=== PATIENT | male | born 1960 | race Caucasian/White ===

== ENCOUNTER 2017-11-17 07:00 | Emergency (ER) | payer OTHER ==
[~2017-11-17] VITALS: Ht 180.3 cm; Wt 83.2 kg
[2017-11-17 07:04] VITALS: TEMP 36.8; Ht 180.3 cm; Wt 83.2 kg
[2017-11-17] MEDS ORDERED: SODIUM CHLORIDE 0.9% 1000ML 1,000 ML IV STA (07:26)
[2017-11-17] MEDS ORDERED: ONDANSETRON INJ 8 MG in DEXTROSE 5% 50ML 50 ML IV SCH (07:26)
[2017-11-17] MEDS ORDERED: ONDANSETRON 8 MG/54 ML D5W IV STA (07:26)
[2017-11-17] MEDS ORDERED: OPTIRAY 320 IV PRN (07:30)
[2017-11-17] MEDS ORDERED: FOLI1TAB8 PO (07:36)
[2017-11-17] MEDS ORDERED: ALFU1TAB37 PO (07:36)
[2017-11-17] MEDS ORDERED: IRBE1TAB46 PO (07:36)
[2017-11-17] MEDS ORDERED: DEXL60CA4 PO (07:36)
[2017-11-17] MEDS ORDERED: HYDR12.55 PO (07:36)
[2017-11-17] MEDS ORDERED: LOVA10TA3 PO (07:36)
[2017-11-17] MEDS ORDERED: ASPI81TA28 PO (07:36)
[2017-11-17 07:53] LABS: BASO % 0.2 %; BASO ABS # 0.02 K/uL (0-0.2); EOS % 0.8 %; EOS ABS # 0.07 K/uL (0-0.5); HEMOGLOBIN 15.1 g/dL (14.0-18.0); IG# 0.01 K/uL (0.00-0.02); LYMPH % 11.5 %; LYMPH ABS # 0.97 K/uL (1.2-3.4); MEAN CELL VOLUME 91.5 fL (80-100); MEAN CORPUSCULAR HEMOGLOBIN 32.1 pg (25-34); MEAN CORPUSCULAR HGB CONC 35.1 g/dl (32-36); MEAN PLATELET VOLUME 11.9 fL (7.4-10.4); MONO % 7.5 %; MONO ABS # 0.63 K/uL (0.11-0.59); NEUT % 79.9 %; NEUT ABS # 6.75 K/uL (1.4-6.5); PLATELET COUNT 137 K/uL (130-400); RED CELL DISTRIBUTION WIDTH CV 13.4 % (11.5-14.5); RED CELL DISTRIBUTION WIDTH SD 45.3 fL (36.4-46.3); WHITE BLOOD COUNT 8.45 K/uL (4.8-10.8)
[2017-11-17 08:10] LABS: ALBUMIN 3.8 gm/dl (3.4-5.0); CALCIUM 8.6 mg/dl (8.5-10.1); CREATININE 0.98 mg/dl (0.60-1.40); POTASSIUM 4.2 mmol/L (3.5-5.1)
[2017-11-17 08:13] LABS: TOTAL PROTEIN 7.2 gm/dl (6.4-8.2)
--- NOTE | 2017-11-17 09:51 | DIAGNOSTIC IMAGING REPORT ---
ABD/PELVIS IV AND ORAL CONT CLINICAL HISTORY: 57 years-old Male presenting with LEFT-SIDED ABDOMINAL PAIN, left lower quadrant abdominal pain, lower rib pain, history of prior left-sided hernia repair. TECHNIQUE: Multidetector CT of the abdomen and pelvis was performed after the administration of oral and intravenous contrast. IV contrast: 94 mL of Optiray 320. A dose lowering technique was used consistent with the principles of ALARA (as low as reasonably achievable). COMPARISON: 12/24/2015. CT DOSE (mGy.cm): The estimated cumulative dose is 338.45 mGy.cm. 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 Lung bases: Minimal basilar opacities, likely atelectasis. Normal heart size. Mitral annular calcification. No pericardial or pleural effusion. Liver: Normal morphology. No liver lesion. Patent hepatic vasculature. Biliary: No intrahepatic or extrahepatic biliary ductal dilatation. Normal gallbladder. Pancreas: Normal. Spleen: Normal. Adrenal glands: Normal. Kidneys and ureters: Multiple well-defined hypodensities in the kidneys primarily on the left, likely simple cysts. No nephrolithiasis. No hydronephrosis. No perinephric fat infiltration. Ureters normal. Bladder: Normal. Pelvic organs: Prostate and seminal vesicles normal. Bowel: Diverticulosis of the sigmoid and descending colon. Wall thickening of the proximal descending colon with associated fascial thickening and fluid in the left paracolic gutter. No adjacent well-defined fluid collection or extraluminal gas. Moderate stool burden in the right colon. The appendix is normal. No bowel obstruction. Peritoneal cavity: Small amount of free fluid in the pelvis and left paracolic gutter. No evidence of abscess. No free intraluminal gas. No contained extraluminal gas along the descending colon. Lymph nodes: No enlarged lymph nodes in the abdomen or pelvis. Vasculature: Atherosclerosis of the normal caliber abdominal aorta. IVC patent. Abdominal wall: Normal. Musculoskeletal: Normal. IMPRESSION: 1. Findings consistent with acute uncomplicated diverticulitis of the proximal descending colon. No abscess, extraluminal gas, or free air. 2. Diverticulosis of the sigmoid and descending colon. Electronically signed by: Anatoliy Torres M.D. 11/17/2017 9:49 AM Dictated Date/Time: 11/17/2017 9:43 AM
[2017-11-17] MEDS ORDERED: METR-163 PO (10:10)
[2017-11-17] MEDS ORDERED: ONDA8TAB13 SL (10:10)
[2017-11-17] MEDS ORDERED: CIPR-255 PO (10:10)
--- NOTE | 2017-11-17 10:18 | EMERGENCY ROOM VISIT NOTE ---
History First contact with patient: 07:08 Chief Complaint: ABDOMINAL PAIN Stated Complaint: EXTREME PAIN/DISCOMFORT LEFT SIDE/BOTTOM OF RIB CA History of Present Illness The patient is a 57 year old male who presents to the Emergency Room with complaints of left-sided abdominal pain that the patient describes as a constant sensation. The patient reports that his bowels are returning, and feels like he has to have a bowel movement but cannot. He has had no flatulence or belching. The pain is worsened with any type of movement at this point. The patient reports that his stool lately has been "fluffy". He denies any mucus or blood in his stool. He denies any pain radiating into the right side of the abdomen, back or chest. He denies any difficulty urinating, and denies any prior history of kidney stones. The patient's last colonoscopy was in approximately 2013. He does not recall being told that he had diverticulosis or other abnormalities. This was performed by Dr. Rayo at [facility]. The patient also reports a prior history of left inguinal mesh repair in 2008. The patient had an abdominal laparoscopy approximate 4 years ago because of left lower abdominal pain, and was told that he had some inflammation secondary to the mesh repair. Patient does not recall being told that he had any adhesions. The patient reports that he is experiencing nausea this morning, and rates his discomfort a 6 out of 10. Review of Systems HEENT: Denies dizziness, visual problems, hearing loss, tinnitus. Denies difficulty swallowing or oral lesions. PULMONARY: Denies cough, shortness of breath, sputum production or hemoptysis. CARDIOVASCULAR: Denies chest pain, palpitations, dyspnea on exertion, orthopnea or peripheral edema. GASTROINTESTINAL: Denies diarrhea or constipation, otherwise see HPI. GENITOURINARY: Denies dysuria, frequency, urgency or nocturia. NEUROLOGIC: Denies history of epilepsy, CVA, TIA or chronic headaches. MUSCULOSKELETAL: Denies history of joint tenderness/swelling. SKIN: Denies rashes or lesions. PSYCHIATRIC: Denies history of depression or mental illness. ENDOCRINE: Denies history of diabetes or thyroid disorders. Social History Smoking Status: Never Smoker Current/Historical Medications Scheduled Alfuzosin HCl (Uroxatral), 10 MG PO QAM Aspirin (Aspirin Ec), 81 MG PO DAILY Ciprofloxacin Hcl (Cipro), 500 MG PO BID Dexlansoprazole (Dexilant), 60 MG PO QAM Folic Acid (Folvite), 1 MG PO DAILY Hydrochlorothiazide (Hydrochlorothiazide), 12.5 MG PO QAM Irbesartan (Irbesartan), 75 MG PO QAM Lovastatin (Mevacor), 10 MG PO QPM Metronidazole (Flagyl), 500 MG PO TID Scheduled PRN Ondansetron Odt (Zofran Odt), 8 MG SL Q6H PRN for Nausea Physical Exam Vital Signs Date Time Temp Pulse Resp B/P (MAP) Pulse Ox O2 Delivery O2 Flow Rate FiO2 11/17/17 09:09 71 18 138/85 96 Room Air 11/17/17 07:04 36.8 95 20 164/99 97 Room Air Physical Exam CONSTITUTIONAL: Healthy and well nourished. Alert and oriented X 3 with positive affect. Patient appears in mild to moderate discomfort. HEENT: Normocephalic, atraumatic. Pupils equal, round and reactive. No scleral icterus or conjunctival injection. OROPHARYNX: Mucous membranes are moist. NECK: Full active range of motion without discomfort. RESPIRATORY: Clear to auscultation bilaterally with no wheezing, crackles, rhonchi or stridor. CARDIOVASCULAR: Regular rate and rhythm with no murmurs, rubs or gallops. GASTROINTESTINAL: Bowel sounds present in all quadrants. Patient has notable left-sided abdominal tenderness to palpation with guarding. No rebound or rigidity. Negative McBurney's point tenderness. Negative He sign. Negative CVA tenderness. MUSCULOSKELETAL: Full range of motion of all joints without discomfort. INTEGUMENTARY: No rash or other significant dermatologic conditions noted. HEMATOLOGIC: No ecchymosis or petechiae. NEUROLOGIC: No focal neurologic deficits noted. Medical Decision & Procedures ER Provider Diagnostic Interpretation: Enhanced CT of the abdomen and pelvis shows an uncomplicated diverticulitis of the descending colon and sigmoid. Radiologist report is as follows: ABD/PELVIS IV AND ORAL CONT CLINICAL HISTORY: 57 years-old Male presenting with LEFT-SIDED ABDOMINAL PAIN, left lower quadrant abdominal pain, lower rib pain, history of prior left-sided hernia repair. TECHNIQUE: Multidetector CT of the abdomen and pelvis was performed after the administration of oral and intravenous contrast. IV contrast: 94 mL of Optiray 320. A dose lowering technique was used consistent with the principles of ALARA (as low as reasonably achievable). COMPARISON: 12/24/2015. CT DOSE (mGy.cm): The estimated cumulative dose is 338.45 mGy.cm. 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 Lung bases: Minimal basilar opacities, likely atelectasis. Normal heart size. Mitral annular calcification. No pericardial or pleural effusion. Liver: Normal morphology. No liver lesion. Patent hepatic vasculature. Biliary: No intrahepatic or extrahepatic biliary ductal dilatation. Normal gallbladder. Pancreas: Normal. Spleen: Normal. Adrenal glands: Normal. Kidneys and ureters: Multiple well-defined hypodensities in the kidneys primarily on the left, likely simple cysts. No nephrolithiasis. No hydronephrosis. No perinephric fat infiltration. Ureters normal. Bladder: Normal. Pelvic organs: Prostate and seminal vesicles normal. Bowel: Diverticulosis of the sigmoid and descending colon. Wall thickening of the proximal descending colon with associated fascial thickening and fluid in the left paracolic gutter. No adjacent well-defined fluid collection or extraluminal gas. Moderate stool burden in the right colon. The appendix is normal. No bowel obstruction. Peritoneal cavity: Small amount of free fluid in the pelvis and left paracolic gutter. No evidence of abscess. No free intraluminal gas. No contained extraluminal gas along the descending colon. Lymph nodes: No enlarged lymph nodes in the abdomen or pelvis. Vasculature: Atherosclerosis of the normal caliber abdominal aorta. IVC patent. Abdominal wall: Normal. Musculoskeletal: Normal. IMPRESSION: 1. Findings consistent with acute uncomplicated diverticulitis of the proximal descending colon. No abscess, extraluminal gas, or free air. 2. Diverticulosis of the sigmoid and descending colon. Laboratory Results 11/17/17 07:45 Red Blood Count 4.70, Mean Corpuscular Volume 91.5, Mean Corpuscular Hemoglobin 32.1, Mean Corpuscular Hemoglobin Concent 35.1, Mean Platelet Volume 11.9, Neutrophils (%) (Auto) 79.9, Lymphocytes (%) (Auto) 11.5, Monocytes (%) (Auto) 7.5, Eosinophils (%) (Auto) 0.8, Basophils (%) (Auto) 0.2, Neutrophils # (Auto) 6.75, Lymphocytes # (Auto) 0.97, Monocytes # (Auto) 0.63, Eosinophils # (Auto) 0.07, Basophils # (Auto) 0.02 11/17/17 07:45 Test 11/17/17 07:45 11/17/17 07:50 White Blood Count 8.45 K/uL (4.8-10.8) Red Blood Count 4.70 M/uL (4.7-6.1) Hemoglobin 15.1 g/dL (14.0-18.0) Hematocrit 43.0 % (42-52) Mean Corpuscular Volume 91.5 fL (80-100) Mean Corpuscular Hemoglobin 32.1 pg (25-34) Mean Corpuscular Hemoglobin Concent 35.1 g/dl (32-36) Platelet Count 137 K/uL (130-400) Mean Platelet Volume 11.9 fL (7.4-10.4) Neutrophils (%) (Auto) 79.9 % Lymphocytes (%) (Auto) 11.5 % Monocytes (%) (Auto) 7.5 % Eosinophils (%) (Auto) 0.8 % Basophils (%) (Auto) 0.2 % Neutrophils # (Auto) 6.75 K/uL (1.4-6.5) Lymphocytes # (Auto) 0.97 K/uL (1.2-3.4) Monocytes # (Auto) 0.63 K/uL (0.11-0.59) Eosinophils # (Auto) 0.07 K/uL (0-0.5) Basophils # (Auto) 0.02 K/uL (0-0.2) RDW Standard Deviation 45.3 fL (36.4-46.3) RDW Coefficient of Variation 13.4 % (11.5-14.5) Immature Granulocyte % (Auto) 0.1 % Immature Granulocyte # (Auto) 0.01 K/uL (0.00-0.02) Anion Gap 5.0 mmol/L (3-11) Est Creatinine Clear Calc Drug Dose 87.5 ml/min Estimated GFR () 98.1 Estimated GFR (Non- 84.6 BUN/Creatinine Ratio 18.1 (10-20) Calcium Level 8.6 mg/dl (8.5-10.1) Total Bilirubin 0.5 mg/dl (0.2-1) Direct Bilirubin 0.2 mg/dl (0-0.2) Aspartate Amino Transf (AST/SGOT) 15 U/L (15-37) Alanine Aminotransferase (ALT/SGPT) 26 U/L (12-78) Alkaline Phosphatase 79 U/L (45-117) Total Protein 7.2 gm/dl (6.4-8.2) Albumin 3.8 gm/dl (3.4-5.0) Lipase 204 U/L (73-393) Urine Color DK YELLOW Urine Appearance CLEAR (CLEAR) Urine pH 5.5 (4.5-7.5) Urine Specific [place] 1.022 (1.000-1.030) Urine Protein NEG (NEG) Urine Glucose (UA) NEG (NEG) Urine Ketones NEG (NEG) Urine Occult Blood NEG (NEG) Urine Nitrite NEG (NEG) Urine Bilirubin NEG (NEG) Urine Urobilinogen NEG (NEG) Urine Leukocyte Esterase NEG (NEG) The above labs were reviewed. Patient does not have an elevated white count. Urinalysis is normal. LFTs, lipase and remaining electrolytes are also normal. Medications Administered Medications (Trade) Dose Ordered Sig/Nydia Route Start Time Stop Time Status Last Admin Dose Admin Sodium Chloride 1,000 ml @ 0 mls/hr Q0M STAT IV 11/17/17 07:26 11/17/17 07:28 DC 11/17/17 08:09 1,000 MLS/HR Ondansetron HCl 8 mg/Dextrose 54 ml @ 216 mls/hr 0726 IV 11/17/17 07:26 11/17/17 09:00 DC 11/17/17 08:08 216 MLS/HR ED Course Patient history and physical exam were performed. Nurse's notes were reviewed. Vital signs were reviewed, showing an initial blood pressure of 164/99. The patient is afebrile. IV access was established, and labs were drawn. The patient was initially hydrated with a liter normal saline, and administered Zofran IVP for nausea. He refused any initial analgesics. Review of labs does not show any leukocytosis or elevated liver transaminases or lipase. Electrolytes are normal. Urinalysis is also normal. Enhanced CT of the abdomen and pelvis shows an uncomplicated diverticulitis of the descending colon and sigmoid. The patient reports mild persistent pain, continuing to refuse any parenteral or oral analgesics. Findings were discussed with the patient and . The patient was encouraged to follow-up with his PCP or stationary steam engineer for reevaluation in 2-3 days. The patient will be provided prescriptions for Zofran ODT, Cipro and Flagyl. The patient may also alternate ibuprofen and Tylenol for baseline pain relief. He was instructed to return to the emergency department for any progressively worsening pain or developing fever. Dietary instructions were also discussed. The patient was happy with plan of care, and voiced understanding of all discharge instructions. Medical Decision Patient presents with a several month history of left-sided abdominal pain. CT studies today plicated diverticulitis of the descending colon and sigmoid. There is no evidence for microperforation or abscess formation. The patient is currently afebrile and does not have any leukocytosis to suggest overwhelming infection. Laboratory studies also are not suggestive of UTI, pancreatitis, cholecystitis or hepatitis. I do not suspect cardiopulmonary or musculoskeletal etiology. Medication Reconcilliation Current Medication List: was personally reviewed by me Blood Pressure Screening Patient's blood pressure: Elevated blood pressure Blood pressure disposition: Did not require urgent referral Impression Primary Impression: Diverticulitis Departure Information Prescriptions Ondansetron Odt (ZOFRAN ODT) 8 Mg Tab 8 MG SL Q6H Y for Nausea, #10 TAB Prov: Zak Valadez PA 11/17/17 Metronidazole (Flagyl) 500 Mg Tab 500 MG PO TID for Pain for 10 Days, #30 TAB For Initial Treatment Prov: Zak Valadez PA 11/17/17 Ciprofloxacin Hcl (CIPRO) 500 Mg Tab 500 MG PO BID for 10 Days, #20 TAB Prov: Zak Valadez PA 11/17/17 Referrals No Doctor, Assigned (PCP) Patient Instructions [facility]
[2017-11-17 10:46] VITALS: BP 128/81; PULSE 70; O2SAT 96
== END 2017-11-17 10:48 | disposition home or self-care (01) ==
LOC: C.EDB 07:01
DX: K57.92 Diverticulitis of intestine, part unspecified, without perforation or abscess without bleeding (principal); Z79.899 Other long term (current) drug therapy; Z79.82 Long term (current) use of aspirin

== ENCOUNTER 2019-07-24 05:46 | Observation (INO) ==
--- NOTE | 2019-07-02 10:44 | PAT Medication Instructions ---
Medication Instructions Date of Service July 02, 2019 Home Medications alfuzosin 10 mg tablet,extended release 24 hr 10 mg PO QAM folic acid 1 mg tablet 1 mg PO QAM hydrochlorothiazide 25 mg PO QAM irbesartan 75 mg PO QPM omeprazole 20 mg PO BIDM lovastatin 10 mg tablet 10 mg PO Q OTHER DAY [id number]-fht-hyalur [Joint Health] 1 tab PO TID lactobacillus combination no.4 [Probiotic] 3,000 mmu cells PO QAM [Centrum Silver Men] 1 tab PO QAM Continue as directed lovastatin 10 mg tablet 10 mg PO Q OTHER DAY STOP taking 2 weeks before surgery (or as soon as possible if surgery is within 2 weeks) rufycduvn-vwvffvdl-rho-hyalur [Joint Health] 1 tab PO TID DO NOT take the morning of surgery folic acid 1 mg tablet 1 mg PO QAM hydrochlorothiazide 25 mg PO QAM lactobacillus combination no.4 [Probiotic] 3,000 mmu cells PO QAM Centrum Silver Men 1 tab PO QAM Take morning of surgery With a small sip of water, OTHERWISE NOTHING TO EAT OR DRINK AFTER MIDNIGHT: alfuzosin 10 mg tablet,extended release 24 hr 10 mg PO QAM omeprazole 20 mg PO BIDM Take evening before surgery irbesartan 75 mg PO QPM omeprazole 20 mg PO BIDM Other Notes If you have any questions please call us at [phone] or [phone] or [phone] or [phone]
--- NOTE | 2019-07-03 08:58 | Anesthesiology Consultation ---
Date of Service July 03, 2019 Assessment & Plan (1) Encounter for pre-operative examination: PCP CLEARANCE 06/27 = "Patient cleared for surgery." Chart Review Chart Review: Acceptable Risk for Surgery (PENDING PRE-OP TESTING -- EKG, LABS, CXR) and Patient seen in Pre Admission Testing Teaching & Discussion Instructed NPO after midnight before surgery, except medications with 15 cc of water. Medication instructions provided according to the PAT guidelines. History Surgery Operation Date: 07/24/19 07:30 Proposed Procedures p Robotic Assisted Laparoscopic Radical Retropubic Prostatectomy, Possible Open, Possible Pelvic Lymph Node Disection, Possible Suprapubic Tube Placement - Nima Carrera MD Height/Weight Height: 5 ft 11 in Weight: 83.1 kg Allergies Allergy/AdvReac Type Severity Reaction Status Date / Time No Known Allergies Allergy Verified 06/27/19 15:07 Medications Home Medications Medication Instructions Recorded Confirmed Last Taken alfuzosin 10 mg tablet,extended 10 mg PO QAM 04/30/19 06/27/19 04/30/19 release 24 hr folic acid 1 mg tablet 1 mg PO QAM 04/30/19 06/27/19 04/30/19 hydrochlorothiazide 25 mg PO QAM 04/30/19 06/27/19 04/30/19 irbesartan 75 mg PO QPM 04/30/19 06/27/19 04/30/19 omeprazole 20 mg PO BIDM 04/30/19 06/27/19 04/30/19 lovastatin 10 mg tablet 10 mg PO Q OTHER DAY tab 06/24/19 06/27/19 Unknown tdiwhpkks-vwnglaxl-utd-hyalur 1 tab PO TID 06/27/19 06/27/19 Unknown [Joint Health] lactobacillus combination no.4 3,000 mmu cells PO QAM 06/27/19 06/27/19 Unknown [Probiotic] overyire-tkb-IV-lycopen-lutein 1 tab PO QAM 06/27/19 06/27/19 Unknown [Centrum Silver Men] Past Medical History Medical History (Updated 07/03/19 @ 09:02 by Doug Moreno) Essential (primary) hypertension History of diverticulosis Hx of transient ischemic attack (TIA) 2013 - INITIALLY SEE AT [facility], SENT TO [place] ([place]). HAD FACIAL DROOP WHICH RESOLVED IN 2 HOURS. CURRENTLY NO RSDUAL EFFECTS. WAS EVALUATED BY NEUROLOGY [facility], [place], TOLD TO TAKE FOLIC ACID DAILY, NO NEED TO F/U. Hyperlipidemia Prostate cancer (Acute) Rising PSA, pretreatment PSA 3.72 Status post ultrasound-guided biopsies April 17, 2018 Adenocarcinoma the prostate Reema 3+3, 1 of 14 cores positive Prostate volume 25 Prostate density 0.148 Exercise / Class Metabolic Activity II 4-5 Yardwork/Stairs/Walk up hill (DENIES CP OR SOB WITH 1 FOS) Past Family History Family History (Updated 06/27/19 @ 15:20 by Awilda Merritt, RN) Father , age 52 No problems noted. Sister , age 51 of colon cancer Family hx of colon cancer Brother No problems noted. Son Age: 39 No problems noted. Son Age: 36 No problems noted. Daughter Age: 42 No problems noted. Grandmother (Paternal) Family history of diabetes mellitus Sister No problems noted. Past Surgical History Surgical History History of foot surgery RIGHT BIG TOE JOINT FUSION Hx of colonoscopy Hx of hernia repair Past Anesthesia History No Hx of Anesthesia Complications and No Family Hx of Anesthesia Complications History of PONV No Hx of PONV and No Hx of Motion Sickness Social History Smoking Status: Former smoker Do You Dip or Chew Tobacco: No Smoking End Date: 03/1992 Hx Alcohol Use: Yes Alcohol type: beer and hard liquor alcohol intake frequency: a few times a week Hx Substance Use: No Review of Systems Pt denies any recent chest pain, shortness of breath, palpitations, cough, fever or URI. Physical Exam Vital Signs BP: 146/90 (pt states usually 130's/80's, drank coffee this AM) P: 64 bpm SPO2: 98% RA T: 98.0 F R: 12 ENMT Mouth: no dentures, no dental restorations, no chipped teeth and no loose teeth Thyromental Distance: > or= 3.5 Finger Breadths (3.5) Mallampati Class: II Neck normal visual inspection and + facial hair (short trimmed goatee); neck ex tension not limited (some pain at limits of ROM) Respiratory normal respiratory effort Auscultation: lungs clear to auscultation bilaterally Cardiovascular Rate/Rhythm: regular rate and regular rhythm Heart Sounds: no murmur Vessels: no carotid bruit Extremities: no edema
--- NOTE | 2019-07-03 09:31 | XRay Report ---
XR chest Pre-admission PA/Lat HISTORY: 59 years-old Male pat preoperative exam. No acute chest complaints COMPARISON: CT abdomen and pelvis 04/30/2019 TECHNIQUE: PA and lateral views of the chest FINDINGS: Cardiomediastinal and hilar silhouettes are within normal limits. No pneumothorax, pleural effusion, focal airspace consolidation or overt pulmonary edema. Lungs are mildly hyperinflated with blunting o f the posterior costophrenic angles. Bones of the chest appear grossly intact. Degenerative changes a re noted about the shoulders and spine. IMPRESSION: No acute process. ACT 112: Negative or not required by law. The above report was generated using voice recognition software. It may contain grammatical, syntax o r spelling errors. Electronically signed by: Mu Sunshine M.D. 07/03/2019 9:30 AM
[2019-07-03 10:08] LABS: Basophils # (auto) 0.01 K/uL (0-0.2); Basophils % (auto) 0.2 %; Eosinophils # (auto) 0.05 K/uL (0-0.5); Eosinophils % (auto) 0.9 %; Hematocrit (blood only) 42.7 % (42-52); Hemoglobin 14.1 g/dL (14.0-18.0); Immature Granulocytes # (auto) 0.01 K/uL (0.00-0.02); Immature Granulocytes % (auto) 0.2 %; Lymphocytes # (auto) 1.42 K/uL (1.2-3.4); Lymphocytes % (auto) 24.2 %; Mean Corpuscular Hemoglobin 30.9 pg (25-34); Mean Corpuscular Volume 93.4 fL (80-100); Mean Platelet Volume 11.7 fL (7.4-10.4); Monocytes # (auto) 0.42 K/uL (0.11-0.59); Monocytes % (auto) 7.2 %; Neutrophils # (auto) 3.96 K/uL (1.4-6.5); Neutrophils % (auto) 67.3 %; Platelet Count 179 K/uL (130-400); RDW Coefficient of Variation 13.9 % (11.5-14.5); RDW Standard Deviation 47.4 fL (36.4-46.3); Red Blood Count 4.57 M/uL (4.7-6.1); White Blood Count 5.87 K/uL (4.8-10.8)
[2019-07-03 10:16] LABS: Appearance Urine Clear (Clear); Bilirubin Urine Negative (Negative); Blood Urine Negative (Negative); Color Urine Yellow; Glucose Urine UA Negative (Negative); Ketones Urine Negative (Negative); Leukocyte Esterase Urine Negative (Negative); Nitrite Urine Negative (Negative); Protein Urine Negative (Negative); Specific Gravity Urine 1.008 (1.000-1.030); Urobilinogen Urine Negative (Negative); pH Urine 7.5 (4.5-7.5)
[2019-07-03 10:21] LABS: BUN Creatinine Ratio 18.1 (10-20); Est GFR (African American) 92.2; Est GFR (Non-African American) 79.5; Potassium 4.4 mmol/L (3.5-5.1)
[2019-07-24] MEDS ORDERED: LR 500ML BOLUS, THEN 15ML/HR IV SCH (06:00)
[2019-07-24] MEDS ORDERED: LR 15ML/HR IV SCH ×2 (06:00)
[2019-07-24] MEDS ORDERED: HEPARIN SOD 5,000 UNIT/0.5 ML VIAL SQ SCH (06:00)
[2019-07-24] MEDS ORDERED: CEFAZOLIN 2000MG 2,000 MG/15 ML SYR IV SCH (06:00)
[2019-07-24] MEDS ORDERED: ACETAMINOPHEN 1,000 MG/100 ML VIAL IV SCH (06:00)
--- NOTE | 2019-07-24 07:04 | History & Physical Bridge Note ---
Date of Service July 24, 2019 History & Physical Bridge Note I have examined the patient, reviewed the History & Physical and in the interval since the performance of the History & Physical I have noted the following changes of clinical significance: no changes noted
[2019-07-24] MEDS ORDERED: LIDOCAINE HCL 2% 2 ML VIAL/AMP(20MG/ML) INFIL ONE (07:07)
[2019-07-24] MEDS ORDERED: DEXAMETHASONE SOD INJ 4 MG/ML VIAL ONE (07:07)
[2019-07-24] MEDS ORDERED: PROPOFOL IV EMULSION 10 MG/ML 20 ML VIAL IV ONE (07:07)
[2019-07-24] MEDS ORDERED: ONDANSETRON INJ 2 MG/ML 2 ML VIAL ONE (07:07)
[2019-07-24] MEDS ORDERED: ROCURONIUM BROMIDE 10 MG/ML 5 ML VIAL ONE ×6 (07:07→08:28)
[2019-07-24] MEDS ORDERED: GLYCOPYRROLATE 0.2 MG/ML VIAL ONE (07:07)
[2019-07-24] MEDS ORDERED: NEOSTIGMINE METHYLSULFATE 5 MG/5 ML SYR ONE (07:07)
[2019-07-24] MEDS ORDERED: PHENYLEPHRINE HCL 10 MG/ML VIAL ONE (07:07)
[2019-07-24] MEDS ORDERED: MIDAZOLAM HCL 1 MG/ML 2ML VIAL ONE (07:07)
[2019-07-24] MEDS ORDERED: HYDROmorphone INJ 2 MG/ML SYR/VIAL ONE ×2 (07:08→09:07)
[2019-07-24] MEDS ORDERED: BUPIVACAINE 0.5 % 5 MG/1 ML MPF 30ML VIAL ONE (07:25)
[2019-07-24] MEDS ORDERED: ePHEDrine sulfate 50 MG/ML AMP IV PRN (07:47)
[2019-07-24] MEDS ORDERED: fentaNYL citrate 100 MCG/2 ML VIAL IV PRN (07:47)
[2019-07-24] MEDS ORDERED: HYDROmorphone INJ 2 MG/ML SYR/VIAL IV PRN (07:47)
[2019-07-24] MEDS ORDERED: ONDANSETRON INJ 2 MG/ML 2 ML VIAL IV PRN ×2 (07:47→12:45)
[2019-07-24] MEDS ORDERED: ATROPINE SULFATE 0.1 MG/ML 10ML SYR IV PRN (07:47)
[2019-07-24] MEDS ORDERED: PROMETHAZINE HCL 12.5 MG in SODIUM CHLORIDE 0.9% 50 ML IV PRN (07:47)
[2019-07-24] MEDS ORDERED: LABETALOL HCL IV 5 MG/ML 20ML IV ONE (08:39)
[2019-07-24] MEDS ORDERED: SURGICEL ABSORB HEMOSTAT 2IN X 14IN TOP ONE (08:57)
[2019-07-24] MEDS ORDERED: FLOSEAL HEMOSTATIC MATRIX 10ML TOP ONE (09:34)
--- NOTE | 2019-07-24 10:41 | Operative Report ---
PG Post Operative Report Pre & Post Diagnosis Operation Date: 07/24/19 07:30 Pre-Op Diagnosis: Prostate Cancer Post-Op Diagnosis: Prostate Cancer I identified the patient and participated in the time-out.: Yes Procedure Operation Date: 07/24/19 07:30 Actual Procedures p Robotic Assisted Laparoscopic Radical Retropubic Prostatectomy, Suprapubic Tube Placement - Nima Carrera MD Surgeon Nima Carrera MD Filling Separator BOY VILLEDA Estimated Blood Loss 100 Findings Consistent with Post-Op Diagnosis Specimens Periprostatic fat, R SV+ vas, prostate + SVs Description of Procedure See above I attest to the content of the Intraoperative Record and any orders documented therein. Any exceptions are noted below.
[2019-07-24 11:37] LABS: Basophils # (auto) 0.01 K/uL (0-0.2); Basophils % (auto) 0.1 %; Eosinophils # (auto) 0.02 K/uL (0-0.5); Eosinophils % (auto) 0.2 %; Hematocrit (blood only) 41.5 % (42-52); Immature Granulocytes # (auto) 0.01 K/uL (0.00-0.02); Immature Granulocytes % (auto) 0.1 %; Lymphocytes # (auto) 0.97 K/uL (1.2-3.4); Lymphocytes % (auto) 11.1 %; Mean Corpuscular Hemoglobin 31.4 pg (25-34); Mean Platelet Volume 11.9 fL (7.4-10.4); Monocytes # (auto) 0.11 K/uL (0.11-0.59); Monocytes % (auto) 1.3 %; Neutrophils # (auto) 7.62 K/uL (1.4-6.5); Neutrophils % (auto) 87.2 %; Platelet Count 148 K/uL (130-400); RDW Coefficient of Variation 13.9 % (11.5-14.5); RDW Standard Deviation 47.5 fL (36.4-46.3); Red Blood Count 4.46 M/uL (4.7-6.1); White Blood Count 8.74 K/uL (4.8-10.8)
[2019-07-24 11:39] LABS: Mean Corpuscular Hgb Conc 33.7 g/dL (32-36)
[2019-07-24 11:58] LABS: BUN Creatinine Ratio 16.9 (10-20); Calcium 8.5 mg/dl (8.5-10.1); Creatinine Clr Calc Pharmacy 75.4 ml/min; Est GFR (African American) 83.2; Est GFR (Non-African American) 71.8; Potassium 4.2 mmol/L (3.5-5.1)
--- NOTE | 2019-07-24 12:26 | Anesthesiology Progress Note ---
Date of Service July 24, 2019 Anesthesia Post Procedure Vital Signs Vital Signs: Temp Pulse Pulse Resp BP Pulse Ox 07/24/19 12:00 37.2 C 91 H 16 124/74 96 07/24/19 11:50 81 14 113/74 95 07/24/19 11:40 88 17 118/75 96 07/24/19 11:30 85 12 134/74 96 07/24/19 11:20 75 21 129/75 96 07/24/19 11:10 94 H 18 138/79 96 07/24/19 11:00 88 10 L 129/71 96 07/24/19 10:53 36.1 C L 96 H 18 135/79 97 07/24/19 06:14 36.6 C 76 18 137/95 98 Transfer of Care Handoff Completed per policy Notes Mental Status: alert / awake / arousable and participated in evaluation Patient Amnestic to Procedure: Yes Nausea / Vomiting: adequately controlled Pain: adequately controlled Airway Patency, RR, SpO2: stable & adequate BP & HR: stable & adequate Hydration State: stable & adequate Anesthetic Complications: no major complications apparent and Pt Satisfied with anesthetic care
[2019-07-24] MEDS ORDERED: OXYCODONE HCL IR 5 MG TAB (IMMEDIATE RELEASE) PO PRN (12:45)
[2019-07-24] MEDS ORDERED: HYDROmorphone INJ 1 MG/ML SYRINGE IV PRN (12:45)
[2019-07-24] MEDS ORDERED: HYDROmorphone INJ 0.5 MG/0.5 ML SYR IV PRN (12:45)
[2019-07-24] MEDS ORDERED: PROMETHAZINE HCL 12.5 MG in SODIUM CHLORIDE 0.9% 50 ML IV STA (13:01)
[2019-07-24] MEDS ORDERED: LACTATED RINGER'S 1,000 ML IV SCH (13:15)
[2019-07-24] MEDS: CEFAZOLIN 2000MG 2,000 MG/15 ML SYR IV SCH ×2 (17:02→23:47)
[2019-07-24] MEDS: OXYCODONE HCL IR 5 MG TAB (IMMEDIATE RELEASE) PO PRN ×2 (17:10→22:19)
[2019-07-24] MEDS: ACETAMINOPHEN 1,000 MG/100 ML VIAL IV SCH ×2 (17:10→23:47)
[2019-07-24] MEDS: PANTOprazole 40 MG TAB PO SCH (17:11)
--- NOTE | 2019-07-24 17:13 | Progress Note ---
Date of Service July 24, 2019 Subjective Patient resting in bed. Postop nausea noted, improved with meds. Family in room, no OOB yet, planned for later. Taking clears, conversant. Intraop events reviewed. NAD Good respiratory excursion bilaterally. S1 S2 Inc c/d/i, ND, minimal tenderness. Labs as noted. A/P 59 yo male POD#0 s/p RALRP, SPT. Doing as expected. OOBTC tonight, IS encouraged. Clears. Intraop events reviewed. Advance activity tomorrow. Laboratory Results - last 48 hr 07/24/19 07/24/19 11:14 11:14 WBC 8.74 RBC 4.46 L Hgb 14.0 Hct 41.5 L MCV 93.0 MCH 31.4 MCHC 33.7 RDW Std Deviation 47.5 H RDW Coeff of Nithya 13.9 Plt Count 148 MPV 11.9 H Immature Gran % (Auto) 0.1 Neut % (Auto) 87.2 Lymph % (Auto) 11.1 [place] % (Auto) 1.3 Eos % (Auto) 0.2 Baso % (Auto) 0.1 Immature Gran # (Auto) 0.01 Neut # (Auto) 7.62 H Lymph # (Auto) 0.97 L [place] # (Auto) 0.11 Eos # (Auto) 0.02 Baso # (Auto) 0.01 Sodium 139 Potassium 4.2 Chloride 109 H Carbon Dioxide 25 Anion Gap 5.0 BUN 19 H Creatinine 1.11 Est Cr Clr Drug Dosing 75.4 Est GFR ( Amer) 83.2 Est GFR (Non-Af Amer) 71.8 BUN/Creatinine Ratio 16.9 Glucose 129 H Calcium 8.5 Results & Data Vital Signs (Past 12 Hours) Vital Signs Temp Pulse Pulse Pulse Resp BP Pulse Ox 07/24/19 15:50 74 16 136/80 97 07/24/19 14:30 74 17 112/67 96 07/24/19 13:30 75 16 124/80 96 07/24/19 12:30 36.5 C 83 16 127/74 97 07/24/19 12:00 37.2 C 91 H 16 124/74 96 07/24/19 11:50 81 14 113/74 95 07/24/19 11:40 88 17 118/75 96 07/24/19 11:30 85 12 134/74 96 01/09/20 11:20 75 21 129/75 96 07/24/19 11:10 94 H 18 138/79 96 07/24/19 11:00 88 10 L 129/71 96 07/24/19 10:53 36.1 C L 96 H 18 135/79 97 07/24/19 06:14 36.6 C 76 18 137/95 98 PG Care Time/CCT Total # of Minutes Spent Total Time Spent with Patient: Total time spent is greater than 50% in coordination of care (as documented) at patient's floor/unit and/or counseling patient:
[2019-07-24] MEDS ORDERED: KETOROLAC TROMETHAMINE 15 MG/ML VIAL ONE (20:53)
[2019-07-24] MEDS ORDERED: LOVASTATIN 20 MG TAB PO SCH (21:00)
[2019-07-24] MEDS ORDERED: IRBESARTAN 75 MG TAB PO SCH (21:00)
[2019-07-24] MEDS: OXYBUTYNIN CHLORIDE 5 MG TAB PO PRN (21:06)
[2019-07-24] MEDS: DOCUSATE SODIUM 100 MG CAP PO SCH (21:08)
[2019-07-24] MEDS: HEPARIN SOD 5,000 UNIT/0.5 ML VIAL SQ SCH (21:09)
[2019-07-25] MEDS ORDERED: PHENAZOPYRIDINE HCL 200 MG TAB PO STA (00:05)
[2019-07-25] MEDS ORDERED: BELLADONNA/OPIUM SUPP 60 MG SUPP PR STA (00:05)
[2019-07-25] MEDS: OXYCODONE HCL IR 5 MG TAB (IMMEDIATE RELEASE) PO PRN ×3 (02:31→11:20)
[2019-07-25] MEDS: KETOROLAC TROMETHAMINE 15 MG/ML VIAL IV PRN ×2 (03:52→08:29)
--- NOTE | 2019-07-25 04:16 | Operative Report ---
DATE OF OPERATION: 07/24/2019 PREOPERATIVE DIAGNOSIS: [place] 3+4 adenocarcinoma of the prostate. POSTOPERATIVE DIAGNOSIS: [place] 3+4 adenocarcinoma of the prostate. PROCEDURE: Robot-assisted laparoscopic radical retropubic prostatectomy, suprapubic tube placement. SURGEON: Nima Carrera MD. SENIOR BRAND MANAGER: RONAL Mario. Director Instrumentation is present throughout the case for retraction, suction, instrument passage, assistance with robot docking, division of suture ligatures, clip placement, patient positioning and general patient safety. ANESTHESIA: General anesthesia with endotracheal intubation plus local at port sites. ESTIMATED BLOOD LOSS: 100 mL. IV FLUIDS: 1600 mL crystalloid. DRAINS LEFT IN PLACE: Include a #10 DANIS drain in the left lower quadrant, 16-Fijian silicone catheter via suprapubic tube tract with 10 mL of sterile water in the balloon. An 18-Fijian Garcia catheter via urethra with 10 mL of sterile water in the balloon. COMPLICATIONS: None. FINDINGS: Watertight anastomosis with excellent bilateral nerve sparing dissection. BRIEF HISTORY: Mr. Mena is a pleasant 59-year-old male with history of low grade prostate cancer, found to have an increase in both disease volume and Reema grade who has decided upon a robotic prostatectomy to manage his disease. Please see H and P for further details. Intravenous Ancef was provided for antibiotic coverage and SCDs used for DVT prophylaxis. Intravenous Tylenol was also provided for additional perioperative analgesia. The patient's [facility] nomograms suggest a 1% risk of lymph node involvement and therefore bilateral pelvic lymph node dissection is not planned today. Risks and benefits of intervention have been discussed with the patient who vocalizes good understanding of the treatment plan. Informed consent was reviewed in the preoperative context today. DESCRIPTION OF PROCEDURE: The patient was properly identified and brought into the operative suite after identification of appropriate consent on the chart. General anesthesia with endotracheal intubation was initiated and the patient was prepped and draped in standard fashion for this procedure. radio time buyer-out procedure was followed. All port sites were anesthetized with local prior to incision. A transverse supraumbilical incision was made. The abdomen was entered under direct visualization using a 0 degree laparoscope and a visual obturator. This was able to be performed without any evidence of injury to the intra-abdominal structures. Abdomen was insufflated to 15 mmHg and intraabdominal anatomy was surveyed and noted to be within normal limits. A mesh from a left-sided inguinal hernia repair was appreciated but did not interfere with the surgical field. Ports were placed for 4th arm robotic template including two left-sided 8 mm robotic ports, 1 right-sided 8 mm robotic port and a 5 and 12 mm child nutrition assistant port on the right hand side. The patient was placed in Trendelenburg and robot was brought in and docked. 0 degree lens was used to drop the bladder down to the level of the pubic bone. The true pelvis was able to be entered with minimal inflammation from the patient's prior left-sided hernia repair with mesh. The prostate was defatted and skeletonized. Periprostatic fat was sent for pathologic analysis. Endopelvic fascia was sharply entered on both sides and the dorsal venous complex was skeletonized and controlled using an 0 Vicryl suture on a CT1 needle. Nerve sparing dissection was then initiated at this time on both lateral aspects of the prostate gland. Bladder neck was skeletonized down to the level of the Garcia catheter, which was then used for anterior traction on the prostate. Posterior bladder neck was divided and dropped in the midline and noted to be of an excellent aperture with no evidence of proximity of the ureteral orifices. Posterior bladder neck was dropped until the vas deferens were encountered in the midline. These were circumscribed and divided. Rectum was dropped in the midline posteriorly up to the level of the apex of the prostate. The inferior bladder pedicles were skeletonized and controlled using Weck clip. Prostatic pedicles were also controlled using cold Weck clips. The nerve bundles were able to be dissected free in a meticulous fashion to the apex of the prostate in an athermal and tension free manner. A previous prostate MRI suggested no evidence of neurovascular bundle invasion. At this point, a Garcia catheter was replaced and the dorsal venous complex was divided using hot scissors. Urethra was skeletonized and divided with an excellent urethral stump. Rectourethralis were divided and prostate was able to be removed from the pelvis and placed within an EndoCatch bag in the abdomen for retrieval at the end of the case. Rectum was insufflated under saline irrigation and noted to be free of any injury. FloSeal hemostatic agent was placed over the prostate bed for additional hemostasis. Attention was then turned to the bladder neck, which was anastomosed to the urethral stump using a double armed V-Loc suture in a circumferential running fashion. Garcia catheter was visualized easily and preferentially entering the bladder via the prostate without difficulties. A Garcia catheter was visualized entering the bladder prior to completion of closure. The anastomosis was tested with greater than 150 mL of sterile irrigant via the Garcia catheter and noted to be watertight. A small supraumbilical incision was made and a suprapubic tube kit was used to introduce the trocar into the abdomen which was then placed within the bladder under direct visualization. 16-Fijian silicone catheter was placed via the peel away sheath and 10 mL of sterile water were placed within the balloon. This was visualized to be in good position within the anterior bladder wall, facing downward. A working urethra Garcia catheter was replaced with an 18-Fijian silicone catheter with 10 mL of sterile water in the balloon. These were irrigated with isovolumic return from 1 catheter to the other. Catheter was placed to gravity drainage and the fourth arm was removed. A #10 DANIS drain was brought in via the fourth arm port and placed within the confines of the pelvis while avoiding placing it directly over the anastomosis. The robotic instruments were removed and robot was dedocked. Camera was brought in via the child nutrition assistant port and the string to the EndoCatch bag was brought out through the supraumbilical port. This was then enlarged sufficiently to allow for easy removal of the specimen bag. Ports had been removed and a supraumbilical port was closed using a 0 Vicryl suture on a UR-5 needle. Subcutaneous tissues were closed using 3-0 Vicryl and skin was closed using 4-0 Monocryl and Dermabond. A 2-0 silk was used to secure the DANIS drain and suprapubic tube in place. Excess carbon dioxide gas was removed from the abdomen prior to completion of closure. Anesthesia was reversed. The patient was transferred to the recovery room in stable condition. FOLLOWUP CARE: The patient will be admitted to the floor for standard postoperative management. I attest to the content of the Intraoperative Record and any orders documented therein. Any exception s are noted below.
[2019-07-25 06:32] LABS: Basophils # (auto) 0.01 K/uL (0-0.2); Basophils % (auto) 0.1 %; Eosinophils # (auto) 0.04 K/uL (0-0.5); Eosinophils % (auto) 0.4 %; Hematocrit (blood only) 35.6 % (42-52); Hemoglobin 12.2 g/dL (14.0-18.0); Immature Granulocytes # (auto) 0.01 K/uL (0.00-0.02); Immature Granulocytes % (auto) 0.1 %; Lymphocytes # (auto) 2.07 K/uL (1.2-3.4); Lymphocytes % (auto) 20.5 %; Mean Corpuscular Hemoglobin 31.7 pg (25-34); Mean Corpuscular Hgb Conc 34.3 g/dL (32-36); Mean Corpuscular Volume 92.5 fL (80-100); Mean Platelet Volume 11.4 fL (7.4-10.4); Monocytes # (auto) 0.75 K/uL (0.11-0.59); Monocytes % (auto) 7.4 %; Neutrophils # (auto) 7.21 K/uL (1.4-6.5); Neutrophils % (auto) 71.5 %; Platelet Count 147 K/uL (130-400); RDW Coefficient of Variation 13.7 % (11.5-14.5); RDW Standard Deviation 46.3 fL (36.4-46.3); Red Blood Count 3.85 M/uL (4.7-6.1); White Blood Count 10.09 K/uL (4.8-10.8)
[2019-07-25] MEDS: OXYBUTYNIN CHLORIDE 5 MG TAB PO PRN (06:58)
[2019-07-25 07:06] LABS: Calcium 8.5 mg/dl (8.5-10.1); Creatinine Clr Calc Pharmacy 68.6 ml/min; Est GFR (African American) 74.2; Potassium 3.8 mmol/L (3.5-5.1)
--- NOTE | 2019-07-25 07:56 | Urology Progress Note ---
Date of Service July 25, 2019 Assessment & Plan (1) Prostate cancer: 59 yo male POD#1 s/p RALRP, SPT. Patient's bladder spasms seem improved this AM after Toradol, oxybutynin and Pyridium. Pyridium staining noted in urine. >300 cc DANIS output last shift - will send for Cr. If elevated, may be due to spasms of bladder. Will remove urethral sheldon, expect some improvement in spasms after this is complete. If it remains elevated may leave DANIS in place on DC home with appointment to remove next week when OP decreases. SPT draining freely. Continue ambulation, advance diet. OK to DC alfuzosin permanently. If tolerates PO, improved spasms and acceptable activity OK to DC home this PM. Outpatient appointments confirmed. CRNPs will check on progress around lunchtime for possible DC home. Patient vocalizes understanding of the treatment plan. Subjective 59 yo male POD#1 s/p RALRP, SPT placement. Overnight events reviewed, + penile and lower abdominal spasms, intermittent. Patient reports copious oral clear fluids, + ambulation in halls, no nausea / emesis. + leakage around SPT, copious DANIS drainage noted. Labwork reviewed, wnl this AM. No other c/o, intraop events reviewed. Review of Systems Constitutional: no fever and no chills Eyes: no diplopia Ear, Nose, Mouth, Throat: no ear trauma Respiratory: no hemoptysis Cardiovascular: no chest pain Gastrointestinal: + abdominal pain; no vomiting Genitourinary: + genital pain Musculoskeletal: no back pain Integumentary: no acne and no boil Neurologic: no paralysis Psychiatric: no hopelessness Allergy / Immunological: no tongue swelling Physical Exam Constitutional: well developed and well nourished; no acute distress Eyes: eyes not dysmorphic ENMT: Ears: no external ear abnormality Neck: trachea midline; no anterior neck swelling Respiratory: no respiratory distress and does not use accessory muscles Cardiovascular: Vessels: radial pulses present Gastrointestinal (Abdomen): Inspection/Auscultation: abdomen not distended Percussion/Palpation: abdomen soft; abdomen nontender inc c/d/i, urine straining around SPT Musculoskeletal: Head/Neck/Chest: normocephalic and neck supple Skin: normal turgor Neurologic: awake; not obtunded Psychiatric: Orientation: oriented x 3 Lymphatic: no lymphadenopathy Results & Data Vital Signs (Past 12 Hours) Vital Signs Temp Pulse Resp BP Pulse Ox 07/25/19 03:44 36.7 C 100 H 18 148/87 H 98 07/24/19 23:14 36.8 C 76 16 104/66 96 Laboratory Results Laboratory Results - last 48 hr 07/24/19 07/24/19 07/25/19 11:14 11:14 06:19 WBC 8.74 10.09 RBC 4.46 L 3.85 L Hgb 14.0 12.2 L Hct 41.5 L 35.6 L MCV 93.0 92.5 MCH 31.4 31.7 MCHC 33.7 34.3 RDW Std Deviation 47.5 H 46.3 RDW Coeff of Nithya 13.9 13.7 Plt Count 148 147 MPV 11.9 H 11.4 H Immature Gran % (Auto) 0.1 0.1 Neut % (Auto) 87.2 71.5 Lymph % (Auto) 11.1 20.5 [place] % (Auto) 1.3 7.4 Eos % (Auto) 0.2 0.4 Baso % (Auto) 0.1 0.1 Immature Gran # (Auto) 0.01 0.01 Neut # (Auto) 7.62 H 7.21 H Lymph # (Auto) 0.97 L 2.07 [place] # (Auto) 0.11 0.75 H Eos # (Auto) 0.02 0.04 Baso # (Auto) 0.01 0.01 Sodium 139 Potassium 4.2 Chloride 109 H Carbon Dioxide 25 Anion Gap 5.0 BUN 19 H Creatinine 1.11 Est Cr Clr Drug Dosing 75.4 Est GFR ( Amer) 83.2 Est GFR (Non-Af Amer) 71.8 BUN/Creatinine Ratio 16.9 Glucose 129 H Calcium 8.5 07/25/19 06:19 WBC RBC Hgb Hct MCV MCH MCHC RDW Std Deviation RDW Coeff of Nithya Plt Count MPV Immature Gran % (Auto) Neut % (Auto) Lymph % (Auto) [place] % (Auto) Eos % (Auto) Baso % (Auto) Immature Gran # (Auto) Neut # (Auto) Lymph # (Auto) [place] # (Auto) Eos # (Auto) Baso # (Auto) Sodium 135 L Potassium 3.8 Chloride 102 Carbon Dioxide 27 Anion Gap 6.0 BUN 18 Creatinine 1.22 Est Cr Clr Drug Dosing 68.6 Est GFR ( Amer) 74.2 Est GFR (Non-Af Amer) 64.0 BUN/Creatinine Ratio 15.0 Glucose 97 Calcium 8.5 PG Care Time/CCT Total # of Minutes Spent Total Time Spent with Patient: Total time spent is greater than 50% in coordination of care (as documented) at patient's floor/unit and/or counseling patient:
[2019-07-25] MEDS: DOCUSATE SODIUM 100 MG CAP PO SCH (08:32)
[2019-07-25] MEDS: PANTOprazole 40 MG TAB PO SCH (08:32)
[2019-07-25] MEDS: ACETAMINOPHEN 1,000 MG/100 ML VIAL IV SCH (08:38)
[2019-07-25] MEDS: HEPARIN SOD 5,000 UNIT/0.5 ML VIAL SQ SCH (08:39)
[2019-07-25] MEDS ORDERED: ALFUZOSIN HCL 10 MG TAB PO SCH (09:00)
[2019-07-25] MEDS ORDERED: hydroCHLOROthiazide 25 MG TAB PO SCH (09:00)
== END 2019-07-25 13:59 | disposition home or self-care (01) ==
LOC: ASU 05:46 → 3W 10:59 → INTOOBSV 10:59

== ENCOUNTER 2019-07-27 06:29 | Observation (INO) ==
--- NOTE | 2019-07-27 06:59 | Emergency Department Note ---
Entered by Raoul Mendez acting as a scribe for History of Present Illness General Chief complaint: Bleeding Stated complaint: BLEEDING POST SURGERY Time Seen by Provider: 07/27/19 06:30 Source: patient Limitations: no limitations History of Present Illness Onset (ago): day(s) 2 Location: genitals Radiation: abdomen Severity: severe Pain Consistency: + intermittent Quality: + constant Exacerbated By: + other (laying down) Associated symptoms: no fever/chills (fevers) and no nausea/vomiting The patient is a 59 year old male who presents to the Emergency Room with complaints of intermittent bladder pain starting two nights ago. The patient states he had a radical prostatectomy 3 days ago. He states his surgeon was Dr. Carrera. He notes he was discharged from the hospital 2 days ago. He notes he had one episode of extreme bladder spasms episode 2 days ago that lasted 5 minutes. He states last night he went to lay down he he had extreme bladder spasms that were lasting 7 minutes at a time. He states he called the on-call urologist last night and was instructed to take 2 Percocet and AZO. He states he changed his dressing at 0500. He notes he saw urine and blood coming from around his catheter. He notes his pain is 3/10 right now. He states he has prostate cancer and hypertension. He notes he passed some gas. The patient denies having fevers, nausea, vomiting, and taking blood thinners. He states he has not had a bowel movement in 2 days. Home Medications Home Medications Medication Instructions Recorded Confirmed Type folic acid 1 mg tablet 1 mg PO QAM 04/30/19 07/27/19 History hydrochlorothiazide 25 mg PO QAM 04/30/19 07/27/19 History irbesartan 75 mg PO QPM 04/30/19 07/27/19 History omeprazole 20 mg PO BIDM 04/30/19 07/27/19 History lovastatin 10 mg tablet 10 mg PO Q OTHER DAY tab 06/24/19 07/27/19 History Centrum Silver Men 1 tab PO QAM 06/27/19 07/27/19 History Joint Health 1 tab PO TID 06/27/19 07/27/19 History Probiotic 3,000 mmu cells PO QAM 06/27/19 07/27/19 History ciprofloxacin HCl 500 mg PO BID 3 Days #6 tab 07/25/19 07/27/19 Rx docusate sodium [Colace] 100 mg PO BID #60 cap 07/25/19 07/27/19 Rx oxycodone-acetaminophen [Percocet] 1 tab PO TID PRN #14 tab 07/25/19 07/27/19 Rx cephalexin [Keflex] 500 mg PO BID 7 Days #14 cap 07/27/19 Rx ketorolac 10 mg PO Q6H 4 Days #16 tab 07/27/19 Rx metaxalone 800 mg PO TID PRN #10 tab 07/27/19 Rx tamsulosin [Flomax] 0.4 mg PO HS #30 cap 07/27/19 Rx Allergies Allergy/AdvReac Type Severity Reaction Status Date / Time No Known Allergies Allergy Verified 07/27/19 06:36 Past Med/Surg History Medical History Essential (primary) hypertension History of diverticulosis Hx of transient ischemic attack (TIA) 2013 - INITIALLY SEE AT [facility], SENT TO [place] ([place]). HAD FACIAL DROOP WHICH RESOLVED IN 2 HOURS. CURRENTLY NO RSDUAL EFFECTS. WAS EVALUATED BY NEUROLOGY [facility], TOLD TO TAKE FOLIC ACID DAILY, NO NEED TO F/U. 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 Sister , age 51 of colon cancer Family hx of colon cancer Brother No problems noted. Son Age: 39 No problems noted. Son Age: 36 No problems noted. Daughter Age: 42 No problems noted. Grandmother (Paternal) Family history of diabetes mellitus Sister No problems noted. Social History Preferred Language: Cuban Communication Ability: Effective Carpet Loom Fixer Required: No Beliefs That Will Affect Care: None Current Living Situation: Spouse Other Information That Helps Us Care for You: No Feels Safe at Home: Yes Safety Concerns: Feels Safe At This Time Smoking Status: Former smoker Smoking End Date: 03/1992 ; Second Hand Exposure: No ; Tobacco Cessation Education Requested by Patient: No Hx Alcohol Use: Yes Alcohol type: beer and hard liquor Hx Substance Use: No Review of Systems See HPI for pertinent positives & negatives. and A total of 10 systems reviewed and were otherwise negative Physical Exam Vital Signs Vital Signs - 24 hr 07/27/19 06:34 07/27/19 07:30 07/27/19 08:01 Temperature 36.4 C L Temperature Source Oral Pulse Rate 98 H 75 73 Pulse Rate from SpO2 Sensor 77 Pulse Rhythm Regular Pulse Strength Normal Respiratory Rate 16 15 16 Respiratory Effort / Characteristics Non-Labored Spontaneous Respiratory Depth Normal Blood Pressure 177/105 H 139/97 171/96 H Blood Pressure Mean 129 104 108 Blood Pressure Position Lying Pulse Oximetry 95 94 Oxygen Delivery Method Room Air Sepsis Recent Fever Within 48 Hours No Sepsis Action Taken by Nursing No Action Required 07/27/19 08:30 07/27/19 08:39 07/27/19 09:00 Temperature Temperature Source Pulse Rate 79 71 70 Pulse Rate from SpO2 Sensor Pulse Rhythm Pulse Strength Respiratory Rate 33 H 27 H 16 Respiratory Effort / Characteristics Respiratory Depth Blood Pressure 175/106 H 146/97 H 150/90 H Blood Pressure Mean 123 101 95 Blood Pressure Position Pulse Oximetry Oxygen Delivery Method Sepsis Recent Fever Within 48 Hours Sepsis Action Taken by Nursing 07/27/19 09:30 07/27/19 10:30 Temperature Temperature Source Pulse Rate 64 72 Pulse Rate from SpO2 Sensor Pulse Rhythm Pulse Strength Respiratory Rate 15 15 Respiratory Effort / Characteristics Respiratory Depth Blood Pressure 134/78 149/80 H Blood Pressure Mean 97 99 Blood Pressure Position Pulse Oximetry Oxygen Delivery Method Sepsis Recent Fever Within 48 Hours Sepsis Action Taken by Nursing General: Non-ill appearing middle-aged male in no acute distress. HEENT: Normal cephalic atraumatic. Pupils are equal round and reactive to light. Extraocular movements are intact. Oropharynx is pink with moist mucous membranes. No swelling of the mouth lips or tongue. Neck: Supple with a midline trachea. No meningeal signs or stiffness, no JVD or bruits. No Stridor. Chest: Clear to auscultation bilaterally. No wheezes or rhonchi. No increased work of breathing. Heart: regular rate and rhythm. Abdomen: Soft, nondistended without rebound guarding or rigidity. Well-healing incision. Moderately diffusely tender in lower abdomen. Suprapubic catheter in place with some orange urine that is flowing around the catheter. Extremities: No cyanosis clubbing or edema. No calf tenderness or asymmetry Spine/Back. Non tender to palpation. No CVA tenderness Skin: Good turgor without rashes. Neurologic exam: Cranial nerves two through 12 are intact. Motor and sensation are intact and symmetrical throughout. Course Course 0632: The patient was evaluated in room A11B, and a complete history and physical examination were performed. 0707: I spoke with Dr. Gutierrez - Urology. He recommends giving the patient a B&O suppository. 0715: I reevaluated the patient. He appears comfortable. 0742: I reevaluated the patient. His suppository just arrived. He asked for something mild for his pain, so I ordered Tylenol. I spoke to his . Dr. Gutierrez is coming. 0836: I reevaluated the patient. He is having a lot of pain. I ordered morphine and Zofran. He was leaking around the catheter. The dressing was changed and he was repositioned. 0843: Dr. Gutierrez recommends giving the patient 5 mg Ditropan. 0906: I reevaluated the patient. He is resting. Dr. Gutierrez has just arrived. 1115: I reevaluated the patient. He states he is still in pain. I ordered antibiotics. 1155: The patient states he is having pain in his anal region. I spoke with Dr. Gutierrez who recommends giving the patient B&O suppository and admitting the patient. 1207: I discussed the patient's case with Dr. Kidd - [facility]. He will evaluate the patient for further management. Administered Medications Belladonna Alkaloids/Opium (B & O Adult) 60 mg WI POSTDI TON Stop: 07/27/19 15:00 Last Admin: 07/27/19 14:35 Dose: Not Given Documented by: [id number] Ioversol (Optiray 320 100ml) 93 ml IV ONCE PRN PRN Reason: Interaction Checking Stop: 07/31/19 10:01 Last Admin: 07/27/19 10:02 Dose: 93 ml Documented by: [id number] Tamsulosin HCl (Flomax) 0.4 mg PO QAM TON Stop: 02/11/20 13:57 Last Admin: 07/27/19 14:25 Dose: 0.4 mg Documented by: [id number] Discontinued Medications Acetaminophen (Tylenol) 650 mg PO NOW STA Stop: 07/27/19 07:45 Last Admin: 07/27/19 08:07 Dose: 650 mg Documented by: [id number] Belladonna Alkaloids/Opium (B & O Adult) 60 mg WI ONE ONE Stop: 07/27/19 07:14 Last Admin: 07/27/19 08:00 Dose: 60 mg Documented by: [id number] Sodium Chloride (Nss) 500 mls @ 999 mls/hr IV .Q31M ONE Stop: 07/27/19 08:05 Last Infusion: 07/27/19 09:14 Dose: 0 mls/hr Documented by: [id number] Admin: 07/27/19 08:01 Dose: 999 mls/hr Documented by: [id number] Ceftriaxone Sodium (Rocephin) 2,000 mg in 70 mls @ 140 mls/hr IV NOW STA Stop: 07/27/19 11:35 Last Infusion: 07/27/19 12:45 Dose: 0 mls/hr Documented by: [id number] Admin: 07/27/19 12:10 Dose: 140 mls/hr Documented by: [id number] Morphine Sulfate (Morphine Sulfate) 4 mg IV NOW STA Stop: 07/27/19 08:37 Last Admin: 07/27/19 08:39 Dose: 4 mg Documented by: [id number] Ondansetron HCl (Zofran) 4 mg IV NOW STA Stop: 07/27/19 08:37 Last Admin: 07/27/19 08:39 Dose: 4 mg Documented by: [id number] Oxybutynin Chloride (Ditropan Xl) 5 mg PO ONE STA Stop: 07/27/19 08:45 Last Admin: 07/27/19 08:57 Dose: 5 mg Documented by: [id number] Medical Decision Making Differential Diagnosis Differential Diagnosis includes but is not limited to infection, UTI, electrolyte or metabolic abnormality, and post-op complication. Medical Records Attestation: I reviewed the patient's medical records. Home Medications Current Medication List: was personally reviewed by me Laboratory Data Attestation: I reviewed the patient's lab results. Result diagrams: 07/27/19 06:55 07/27/19 06:55 Lab Results 07/27/19 07/27/19 07/27/19 Range/Units 06:55 06:55 06:55 WBC 6.83 (4.8-10.8) K/uL RBC 4.32 L (4.7-6.1) M/uL Hgb 13.8 L (14.0-18.0) g/dL Hct 39.4 L (42-52) % MCV 91.2 (80-100) fL MCH 31.9 (25-34) pg MCHC 35.0 (32-36) g/dL RDW Std Deviation 44.8 (36.4-46.3) fL RDW Coeff of Nithya 13.5 (11.5-14.5) % Plt Count 146 (130-400) K/uL MPV 11.4 H (7.4-10.4) fL Immature Gran % (Auto) 0.3 % Neut % (Auto) 74.8 % Lymph % (Auto) 17.3 % [place] % (Auto) 6.3 % Eos % (Auto) 1.2 % Baso % (Auto) 0.1 % Immature Gran # (Auto) 0.02 (0.00-0.02) K/uL Neut # (Auto) 5.11 (1.4-6.5) K/uL Lymph # (Auto) 1.18 L (1.2-3.4) K/uL [place] # (Auto) 0.43 (0.11-0.59) K/uL Eos # (Auto) 0.08 (0-0.5) K/uL Baso # (Auto) 0.01 (0-0.2) K/uL Sodium 139 (136-145) mmol/L Potassium 3.7 (3.5-5.1) mmol/L Chloride 104 (98-107) mmol/L Carbon Dioxide 30 (21-32) mmol/L Anion Gap 5.0 (3-11) BUN 16 (7-18) mg/dl Creatinine 1.46 H (0.6-1.4) mg/dl Est Cr Clr Drug Dosing 57.3 ml/min Est GFR ( Amer) 59.7 Est GFR (Non-Af Amer) 51.5 BUN/Creatinine Ratio 11.2 (10-20) Glucose 104 H (70-99) mg/dl Calcium 9.0 (8.5-10.1) mg/dl Total Bilirubin 0.7 (0.2-1) mg/dl AST 33 (15-37) U/L ALT 31 (12-78) U/L Alkaline Phosphatase 55 (45-117) U/L Total Protein 7.0 (6.4-8.2) gm/dl Albumin 3.5 (3.4-5.0) gm/dl Globulin 3.5 (2.5-4.0) gm/dl Albumin/Globulin Ratio 1.0 (0.9-2) Lipase 189 (73-393) U/L Urine Color [place] Urine Appearance Slightly Cloudy A (Clear) Urine pH (4.5-7.5) Ur Specific [place] 1.027 (1.000-1.030) Urine Protein Positive H (Negative) Urine Glucose (UA) (Negative) Urine Ketones (Negative) Urine Blood (Negative) Urine Nitrite (Negative) Urine Bilirubin (Negative) Urine Urobilinogen (Negative) Ur Leukocyte Esterase (Negative) Urine RBC >30 H (0-4) /hpf Urine WBC >30 H (0-5) /hpf Ur Epithelial Cells 0-5 (0-5) /lpf Urine Bacteria 1+ H (Negative) Urine Mucus Present A (None Prsent) Imaging Data Radiologist's Impression: Radiology results as stated below per my review and the radiologist's interpretation: CT abd pelvis IV con only CLINICAL HISTORY: Severe postop pelvic pain. PROSTATECTOMY. POSSIBLE BLADDER PERFORATION. COMPARISON STUDY: 04/30/2019 TECHNIQUE: The patient was scanned in a dynamic helical fashion during intravenous administration of 93 cc of Optiray 320. 15 minute delayed images were acquired. A dose lowering technique was utilized adhering to the principles of ALARA. CT DOSE: 987.98 mGycm FINDINGS: Lower chest: There are dependent airspace opacities, likely atelectatic. Liver: The contrast-enhanced liver is normal in size, contour, and attenuation. There is no intrahepatic biliary ductal dilatation. The hepatic veins and portal veins are patent. Gallbladder: Mildly distended. No calculi identified. Spleen: Normal in size and attenuation. Pancreas: Unremarkable. Adrenal glands: Unremarkable. Kidneys: There are bilateral simple renal cysts measuring up to 24 mm in diameter. There is no hydronephrosis. Bowel: There are no transition zones to indicate bowel obstruction. There is no acute diverticulitis. There are no findings to indicate acute appendicitis. Peritoneum: There is a small amount of free intraperitoneal air, likely postsurgical. Subcutaneous emphysema is also visualized. There is a small amount of pelvic free fluid. Delayed images demonstrate contrast within the peritoneal space indicative of a bladder leak. Vasculature: The abdominal aorta is normal in course and caliber. Adenopathy: None. Pelvic viscera: There is an indwelling suprapubic bladder catheter. There are postsurgical changes of a prostatectomy. There is a small amount of free pelvic fluid which opacifies with contrast on delayed images. The findings are consistent with a bladder leak. There are small gas bubbles in the retrovesical space, likely postsurgical. Skeletal structures: No destructive osseous lesions are seen. IMPRESSION: 1. Postsurgical changes of a prostatectomy 2. Evidence of a bladder leak, with opacified urine visualized within the peritoneal cavity 3. Small gas bubbles within the retrovesical space at the level of suture lines. Likely postsurgical 4. Small amount of pneumoperitoneum, likely postsurgical 5. No evidence of bowel obstruction. No evidence of free air. ACT 112: Negative or not required by law. Electronically signed by: Fadi Kruse M.D. 07/27/2019 10:25 AM Blood Pressure Blood Pressure Findings: Elevated blood pressure Blood Pressure Disposition: further management by hospitalist JENNIFER Ivy This patient comes in as described above. He was brought in by an ambulance and placed in room A11. He is status post radical prostatectomy done on July [address] Carrera. He was suffering from some lower abdominal pain and what he says are bladder spasms overnight. He said he did get some relief with the Percocet and took Azo. On exam he is moderately tender lower abdomen the postsurgical incisions are intact and have no evidence of infection. He does have a suprapubic catheter in place that has orange urine in it. There is some leaking of urine around the suprapubic site. He is afebrile. IV access established and blood work was obtained as well as urinalysis and culture. He has no white count or fever to suggest infection. His creatinine is mildly elevated at 1.46 but other than that has no acute electrolyte or metabolic abnormalities. His urinalysis is difficult to interpret due to the discoloration from the Azo however he does have greater than 30 red cells and greater than 30 white cells with 1+ bacteria. I have consulted Dr. Beard from urology and he will be seeing the patient in the ER. He does recommend we give him a BNO suppository to help with any bladder spasm. I did order this and talk to the patient about this. He tells me he did receive 1 as an inpatient and it helped him greatly. At this point Dr. Beard does not feel he needs a CAT scan but will be seeing him in the emergency department. The patient started having more spasm and I talked to Dr. Beard again and ordered oxybutynin 5 mg. I also gave the patient a dose of morphine 4 mg IV and Zofran 4 mg IV. The CAT scan does show some leaking which Dr. Beard feels is postop. He did place a Garcia catheter and to help decompress and help with a bladder spasm and felt the patient could go home with some antibiotics as well we did order Rocephin 2 g IV. While he waited the patient had further pain and spasms which she felt like were more in his rectum I called Dr. Beard back he recommended an additional BNO suppository. I feel the patient does need to come in for pain management and observation as he has been in the ER for over 6 hours and still has intermittent significant pain issues. Dr. Beard has asked if the hospitalist can admit the patient for pain management and further treatment and evaluation and I talked to Dr. Kidd. Impression & Plan Abdominal pain, Bladder spasms, Intractable pain, UTI (urinary tract infection) Discharge Plan Visit Data *Final* Discharge Date/Time: 07/27/19 13:30 Chief Complaint: Bleeding Stated Complaint: BLEEDING POST SURGERY ED Provider: Efe Segal Discharge Problem: Abdominal pain, Bladder spasms, Intractable pain, UTI (urinary tract infection) Patient Disposition: Admitted As Inpatient Discharge Instructions Interventions: ED Discharge Assessment Last Done: 07/27/19 13:30 Discharge Problem: Abdominal pain Qualifiers: Abdominal location: unspecified location Qualified Code(s): R10.9 - Unspecified abdominal pain UTI (urinary tract infection) Qualifiers: Urinary tract infection type: site unspecified Hematuria presence: without hematuria Qualified Code(s): N39.0 - Urinary tract infection, site not specified The scribe's documentation has been prepared under my direction and personally reviewed by me in its entirety. I confirm that the note above accurately reflects all work, treatment, procedures, and medical decision making performed by me.
[2019-07-27 07:03] LABS: Basophils # (auto) 0.01 K/uL (0-0.2); Basophils % (auto) 0.1 %; Eosinophils # (auto) 0.08 K/uL (0-0.5); Eosinophils % (auto) 1.2 %; Hematocrit (blood only) 39.4 % (42-52); Hemoglobin 13.8 g/dL (14.0-18.0); Immature Granulocytes # (auto) 0.02 K/uL (0.00-0.02); Immature Granulocytes % (auto) 0.3 %; Lymphocytes # (auto) 1.18 K/uL (1.2-3.4); Lymphocytes % (auto) 17.3 %; Mean Corpuscular Hemoglobin 31.9 pg (25-34); Mean Corpuscular Volume 91.2 fL (80-100); Mean Platelet Volume 11.4 fL (7.4-10.4); Monocytes # (auto) 0.43 K/uL (0.11-0.59); Monocytes % (auto) 6.3 %; Neutrophils # (auto) 5.11 K/uL (1.4-6.5); Neutrophils % (auto) 74.8 %; Platelet Count 146 K/uL (130-400); RDW Coefficient of Variation 13.5 % (11.5-14.5); RDW Standard Deviation 44.8 fL (36.4-46.3); Red Blood Count 4.32 M/uL (4.7-6.1); White Blood Count 6.83 K/uL (4.8-10.8)
[2019-07-27] MEDS ORDERED: BELLADONNA/OPIUM SUPP 60 MG SUPP PR ONE (07:13)
[2019-07-27 07:17] LABS: Appearance Urine Slightly Cloudy (Clear); Color Urine Orange; Protein Urine Positive (Negative); Specific Gravity Urine 1.027 (1.000-1.030); Sulfosalicylic Acid Urine Positive (Negative)
[2019-07-27 07:20] LABS: Albumin Level 3.5 gm/dl (3.4-5.0); BUN Creatinine Ratio 11.2 (10-20); Creatinine Clr Calc Pharmacy 57.3 ml/min; Est GFR (African American) 59.7; Est GFR (Non-African American) 51.5; Potassium 3.7 mmol/L (3.5-5.1)
[2019-07-27 07:21] LABS: Bacteria Urine 1+ (Negative); Epithelial Cell Urine 0-5 /lpf (0-5); Mucus Urine Present (None Prsent); RBC Urine >30 /hpf (0-4); WBC Urine >30 /hpf (0-5)
[2019-07-27 07:23] LABS: Bilirubin,Total 0.7 mg/dl (0.2-1); Globulin 3.5 gm/dl (2.5-4.0)
[2019-07-27] MEDS ORDERED: SODIUM CHLORIDE 0.9% 500 ML IV ONE (07:35)
[2019-07-27] MEDS ORDERED: ACETAMINOPHEN 325 MG TAB PO STA (07:44)
[2019-07-27] MEDS ORDERED: ONDANSETRON INJ 2 MG/ML 2 ML VIAL IV STA (08:36)
[2019-07-27] MEDS ORDERED: MoRPHine SULFATE 4 MG/ML 1 ML CARP\\VIAL IV STA (08:36)
[2019-07-27] MEDS ORDERED: OXYBUTYNIN CHLORIDE XL 5 MG TABCR PO STA (08:44)
--- NOTE | 2019-07-27 09:02 | Urology Consultation ---
Date of Consultation July 27, 2019 Assessment & Plan (1) Prostate cancer: Patient was irrigated at bedside. Patient irrigated easily. Did tolerate minimal amount of fluid within bladder. Did not have any considerably leakage from below. Patient did not have any major considerable leakage around catheter. Discussed different options. Patient has been medicated. Has noticed some relief after starting anticholinergic. Discussed different options. Discussed antibiotics. Discussed concerns and other issues. CT reviewed and interrupted by myself. Small amount of contrast around SP tube and bladder on CT. Significant thickening of bladder. 16 Fr Coude catheter was placed at bedside and drained well. No major issues. Irrigated from SP to Sheldon well without issues. SP clamped and sheldon set to drainage. Will set up with flomax, ditropan, oxybutnin, muscle relaxant, and an antibiotic. recommended ambulating and continuing with stool softners. Patient likely will be discharged home with plan to call and set up appt to remove SP tube. (2) Bladder spasm: See above (3) Postoperative pain: See above History of Present Illness History of Present Illness Patient presenting to ER with acute bladder spasms discomfort pain pressure leaking around SP tube. Patient is status post radical prostatectomy with SP tube placement. Patient has had some pain over the last few days. Over the last few hours developed severe spasms and leaking. Had become poorly tolerated. Trialed narcotics and other medications at home with minimal results. Patient has not noticed any significant blood clots. But has become considerably more uncomfortable. While in the ER has had minimal improvement with medication. Has been hydrated. Allergies Allergy/AdvReac Type Severity Reaction Status Date / Time No Known Allergies Allergy Verified 07/27/19 06:36 Home Medications Home Medications Medication Instructions Recorded Confirmed Type folic acid 1 mg tablet 1 mg PO QAM 04/30/19 07/27/19 History hydrochlorothiazide 25 mg PO QAM 04/30/19 07/27/19 History irbesartan 75 mg PO QPM 04/30/19 07/27/19 History omeprazole 20 mg PO BIDM 04/30/19 07/27/19 History lovastatin 10 mg tablet 10 mg PO Q OTHER DAY tab 06/24/19 07/27/19 History Centrum Silver Men 1 tab PO QAM 06/27/19 07/27/19 History Joint Health 1 tab PO TID 06/27/19 07/27/19 History Probiotic 3,000 mmu cells PO QAM 06/27/19 07/27/19 History ciprofloxacin HCl 500 mg PO BID 3 Days #6 tab 07/25/19 07/27/19 Rx docusate sodium [Colace] 100 mg PO BID #60 cap 07/25/19 07/27/19 Rx oxycodone-acetaminophen [Percocet] 1 tab PO TID PRN #14 tab 07/25/19 07/27/19 Rx Patient History Medical History Essential (primary) hypertension History of diverticulosis Hx of transient ischemic attack (TIA) 2013 - INITIALLY SEE AT [facility], SENT TO [place] ([place]). HAD FACIAL DROOP WHICH RESOLVED IN 2 HOURS. CURRENTLY NO RSDUAL EFFECTS. WAS EVALUATED BY NEUROLOGY [facility], TOLD TO TAKE FOLIC ACID DAILY, NO NEED TO F/U. Hyperlipidemia Prostate cancer (Acute) Rising PSA, pretreatment PSA 3.72 Status post ultrasound-guided biopsies April 17, 2018 Adenocarcinoma the prostate [place] 3+3, 1 of 14 cores positive Prostate volume 25 Prostate density 0.148 Surgical History History of foot surgery RIGHT BIG TOE JOINT FUSION Hx of colonoscopy Hx of hernia repair Family History Father , age 52 No problems noted. Sister , age 51 of colon cancer Family hx of colon cancer Brother No problems noted. Son Age: 39 No problems noted. Son Age: 36 No problems noted. Daughter Age: 42 No problems noted. Grandmother (Paternal) Family history of diabetes mellitus Sister No problems noted. Social History Preferred Language: Hong Konger Communication Ability: Effective Beliefs That Will Affect Care: None Current Living Situation: Spouse Feels Safe at Home: Yes Smoking Status: Never smoker Second Hand Exposure: No ; Hx Alcohol Use: Yes Alcohol type: beer and hard liquor Hx Substance Use: No Physical Exam Physical Exam: General: Alert in no acute distress. HEENT: Normocephalic Atraumatic. Inspection normal. Cranial Nerves 2-12 Grossly intact. Normal inspection of face. Normal inspection of neck. Psychologic: Normal affect. Respiratory: Nonlabored. No use of accessory muscles. No tachypnea or dyspnea. Cardiovascular: No tachycardia Skin: [place] and Dry. No rashes or visible lesions. Extremities/Lymphatics: No edema Abdomen: Soft Non-distended. No rebound or guarding. Results & Data Vital Signs (Past 12 Hours) Vital Signs Temp Pulse Resp BP Pulse Ox 07/27/19 08:39 71 27 H 146/97 H 07/27/19 08:30 79 33 H 175/106 H 07/27/19 08:01 73 16 171/96 H 07/27/19 07:30 75 15 139/97 94 07/27/19 06:34 36.4 C L 98 H 16 177/105 H 95 PG Care Time/CCT Total # of Minutes Spent Total Time Spent with Patient: Total time spent is greater than 50% in coordination of care (as documented) at patient's floor/unit and/or counseling patient:
[2019-07-27] MEDS ORDERED: IOVERSOL 100ml IV PRN (10:02)
--- NOTE | 2019-07-27 10:26 | CT Scan Report ---
CT abd pelvis IV con only CLINICAL HISTORY: Severe postop pelvic pain. PROSTATECTOMY. POSSIBLE BLADDER PERFORATION. COMPARISON STUDY: 04/30/2019 TECHNIQUE: The patient was scanned in a dynamic helical fashion during intravenous administration of 93 cc of Optiray 320. 15 minute delayed images were acquired. A dose lowering technique was utilized adhering to the principles of ALARA. CT DOSE: 987.98 mGycm FINDINGS: Lower chest: There are dependent airspace opacities, likely atelectatic. Liver: The contrast-enhanced liver is normal in size, contour, and attenuation. There is no intrahepa tic biliary ductal dilatation. The hepatic veins and portal veins are patent. Gallbladder: Mildly distended. No calculi identified. Spleen: Normal in size and attenuation. Pancreas: Unremarkable. Adrenal glands: Unremarkable. Kidneys: There are bilateral simple renal cysts measuring up to 24 mm in diameter. There is no hydron ephrosis. Bowel: There are no transition zones to indicate bowel obstruction. There is no acute diverticulitis. There are no findings to indicate acute appendicitis. Peritoneum: There is a small amount of free intraperitoneal air, likely postsurgical. Subcutaneous em physema is also visualized. There is a small amount of pelvic free fluid. Delayed images demonstrate contrast within the peritoneal space indicative of a bladder leak. Vasculature: The abdominal aorta is normal in course and caliber. Adenopathy: None. Pelvic viscera: There is an indwelling suprapubic bladder catheter. There are postsurgical changes of a prostatectomy. There is a small amount of free pelvic fluid which opacifies with contrast on delay ed images. The findings are consistent with a bladder leak. There are small gas bubbles in the retrov esical space, likely postsurgical. Skeletal structures: No destructive osseous lesions are seen. IMPRESSION: 1. Postsurgical changes of a prostatectomy 2. Evidence of a bladder leak, with opacified urine visualized within the peritoneal cavity 3. Small gas bubbles within the retrovesical space at the level of suture lines. Likely postsurgical 4. Small amount of pneumoperitoneum, likely postsurgical 5. No evidence of bowel obstruction. No evidence of free air. ACT 112: Negative or not required by law. Electronically signed by: Fadi Kruse M.D. 07/27/2019 10:25 AM
[2019-07-27] MEDS ORDERED: cefTRIAXone SODIUM 2,000 MG/70 ML BAG IV STA (11:06)
[2019-07-27] MEDS ORDERED: BELLADONNA/OPIUM SUPP 60 MG SUPP PR STA (11:55)
[2019-07-27] MEDS ORDERED: BELLADONNA/OPIUM SUPP 60 MG SUPP PR SCH (12:15)
--- NOTE | 2019-07-27 12:34 | History & Physical Report ---
Date of Service July 27, 2019 Assessment & Plan (1) Bladder spasms: Discussed with Dr Beard: Oxybutynin IR 5mg TID PRN Tamsulosin 0.4mg QAM TON (2) Intractable pain: Toradol scheduled. Percocet PRN (3) Prostate cancer: Reema 6 (3+3) s/p prostatectomy 07/25/[address] Carrera. (4) Constipation: Encourage ambulation. Added MiraLAX. (5) UTI (urinary tract infection): Will continue treatment as per Dr Beard recommendation with keflex (outpatient prescription already sent). History of Present Illness Chief Complaint: Intractable pain, bladder spams Primary Care Provider: Estela Niraj Mena is a 59 year old male admission for bladder spasms. Started after radical prostatectomy 3 days ago. Good relief with IV toradol after the operation but once home he started having severe pains lasting for increasing durations. Percocets reportedly had no effect on the pain. Outside of the spasm pain severity of pain is 3/10. His largest concern is that he lives relatively far away from the hospital and he would be by himself tomorrow therefore will have no one at home with him if this continues to occur at home. In the ER he has been seen by Dr Beard and had bladder irrigation and plan was to go home with keflex, oxybutynin, tamsulosin, Skelexin and previously prescribed Percocets however since pain continued to reoccur in ER urology has asked the hospitalist team to admit. Allergies Allergy/AdvReac Type Severity Reaction Status Date / Time No Known Allergies Allergy Verified 07/27/19 06:36 Home Medications Home Medications Medication Instructions Recorded Confirmed Type folic acid 1 mg tablet 1 mg PO QAM 04/30/19 07/27/19 History hydrochlorothiazide 25 mg PO QAM 04/30/19 07/27/19 History irbesartan 75 mg PO QPM 04/30/19 07/27/19 History omeprazole 20 mg PO BIDM 04/30/19 07/27/19 History lovastatin 10 mg tablet 10 mg PO Q OTHER DAY tab 06/24/19 07/27/19 History Centrum Silver Men 1 tab PO QAM 06/27/19 07/27/19 History Joint Health 1 tab PO TID 06/27/19 07/27/19 History Probiotic 3,000 mmu cells PO QAM 06/27/19 07/27/19 History ciprofloxacin HCl 500 mg PO BID 3 Days #6 tab 07/25/19 07/27/19 Rx docusate sodium [Colace] 100 mg PO BID #60 cap 07/25/19 07/27/19 Rx oxycodone-acetaminophen [Percocet] 1 tab PO TID PRN #14 tab 07/25/19 07/27/19 Rx cephalexin [Keflex] 500 mg PO BID 7 Days #14 cap 07/27/19 Rx ketorolac 10 mg PO Q6H 4 Days #16 tab 07/27/19 Rx metaxalone 800 mg PO TID PRN #10 tab 07/27/19 Rx tamsulosin [Flomax] 0.4 mg PO HS #30 cap 07/27/19 Rx Past Med/Surg History Medical History Essential (primary) hypertension History of diverticulosis Hx of transient ischemic attack (TIA) 2013 - INITIALLY SEE AT [facility], SENT TO IN [place] ([place]). HAD FACIAL DROOP WHICH RESOLVED IN 2 HOURS. CURRENTLY NO RSDUAL EFFECTS. WAS EVALUATED BY NEUROLOGY [facility], TOLD TO TAKE FOLIC ACID DAILY, NO NEED TO F/U. Hyperlipidemia Prostate cancer (Acute) Rising PSA, pretreatment PSA 3.72 Status post ultrasound-guided biopsies April 17, 2018 Adenocarcinoma the prostate Reema 3+3, 1 of 14 cores positive Prostate volume 25 Prostate density 0.148 Surgical History History of foot surgery RIGHT BIG TOE JOINT FUSION Hx of colonoscopy Hx of hernia repair Family History Father , age 52 No problems noted. Sister , age 51 of colon cancer Family hx of colon cancer Brother No problems noted. Son Age: 39 No problems noted. Son Age: 36 No problems noted. Daughter Age: 42 No problems noted. Grandmother (Paternal) Family history of diabetes mellitus Sister No problems noted. Social History Preferred Language: Spanish Communication Ability: Effective [employer] Operations [employer]ist Required: No Beliefs That Will Affect Care: None Current Living Situation: Spouse Other Information That Helps Us Care for You: No Feels Safe at Home: Yes Safety Concerns: Feels Safe At This Time Smoking Status: Former smoker Smoking End Date: 03/1992 ; Second Hand Exposure: No ; Tobacco Cessation Education Requested by Patient: No Hx Alcohol Use: Yes Alcohol type: beer and hard liquor Hx Substance Use: No Review of Systems Review of Systems: All systems reviewed & are unremarkable except as noted in HPI & below Physical Exam Constitutional: WD/WN, vitals as above Eyes: + anicteric sclerae; normal pupil size ENMT: external ear and nose normal, oropharynx normal Neck: trachea midline Respiratory: normal respiratory effort, lungs clear to auscultation Cardiovascular: RRR, no murmur, no edema Gastrointestinal (Abdomen): normal bowel sounds, soft, nontender, no hepatosplenomegaly Musculoskeletal: no cyanosis or clubbing, extremities motor strength 5/5 Skin: no rashes, warm and dry Neurologic: moves all extremities and awake; not confused Psychiatric: Orientation: alert and oriented x 3 Affect: + anxious affect Mood: + anxious mood Lymphatic: no cervical or axillary lymphadenopathy Results & Data Vital Signs (Past 12 Hours) Vital Signs Temp Pulse Resp BP Pulse Ox 07/27/19 10:30 72 15 149/80 H 07/27/19 09:30 64 15 134/78 07/27/19 09:00 70 16 150/90 H 07/27/19 08:39 71 27 H 146/97 H 07/27/19 08:30 79 33 H 175/106 H 07/27/19 08:01 73 16 171/96 H 07/27/19 07:30 75 15 139/97 94 07/27/19 06:34 36.4 C L 98 H 16 177/105 H 95 Code Status & VTE Plan Code Status Full as discussed with the patient VTE Prophylaxis Plan VTE Prophylaxis will be ordered: Yes Reason for no VTE drug order: Treatment not indicated PG Care Time/CCT Total # of Minutes Spent Total Time Spent with Patient: Total time spent is greater than 50% in coordination of care (as documented) at patient's floor/unit and/or counseling patient: (1) Constipation Constipation type: drug induced constipation Qualified Code(s): K59.03 - Drug induced constipation (2) UTI (urinary tract infection) Hematuria presence: without hematuria Urinary tract infection type: site unspecified Qualified Code(s): N39.0 - Urinary tract infection, site not specified
[2019-07-27] MEDS ORDERED: ACETAMINOPHEN 325 MG TAB PO PRN (12:47)
[2019-07-27] MEDS ORDERED: MAGNESIUM HYDROXIDE SUSP 30 ML UDC PO PRN (12:47)
[2019-07-27] MEDS ORDERED: ONDANSETRON INJ 2 MG/ML 2 ML VIAL IV PRN (12:47)
[2019-07-27] MEDS ORDERED: ALUMINUM/MAGNESIUM SUSP 30 ML UDC PO PRN (12:47)
[2019-07-27] MEDS ORDERED: POLYETHYLENE (MIRALAX) 17 GM PACK PO PRN (12:47)
[2019-07-27] MEDS ORDERED: OXYBUTYNIN CHLORIDE 5 MG TAB PO PRN (13:58)
[2019-07-27] MEDS ORDERED: MoRPHine SULFATE 2 MG/ML CARP IV PRN (13:58)
[2019-07-27] MEDS ORDERED: OXYCODONE/ACETAMINOPHEN 5mg/325mg TAB PO PRN ×2 (13:58)
[2019-07-27] MEDS ORDERED: LOVASTATIN 20 MG TAB PO SCH ×2 (14:06→21:00)
[2019-07-27] MEDS: TAMSULOSIN HCL 0.4 MG CAP PO SCH (14:25)
[2019-07-27] MEDS ORDERED: Nursing to Pharmacy Communication ONE (14:36)
[2019-07-27] MEDS: KETOROLAC TROMETHAMINE 10 MG TABLET PO SCH ×2 (15:32→21:23)
[2019-07-27] MEDS ORDERED: POLYETHYLENE (MIRALAX) 17 GM PACK PO ONE (18:32)
[2019-07-27] MEDS: DOCUSATE SODIUM 100 MG CAP PO SCH (19:28)
[2019-07-27] MEDS ORDERED: IRBESARTAN 75 MG TAB PO SCH (21:00)
[2019-07-28] MEDS: KETOROLAC TROMETHAMINE 10 MG TABLET PO SCH ×3 (03:33→16:23)
[2019-07-28] MEDS ORDERED: SODIUM CHLORIDE 0.9% 1000ML 1,000 ML IV SCH (08:30)
[2019-07-28] MEDS: DOCUSATE SODIUM 100 MG CAP PO SCH (08:50)
[2019-07-28] MEDS ORDERED: bisacodyL 10 MG SUPP PR ONE (08:59)
[2019-07-28] MEDS ORDERED: FOLIC ACID 1 MG TAB PO SCH (09:00)
[2019-07-28] MEDS ORDERED: hydroCHLOROthiazide 25 MG TAB PO SCH (09:00)
[2019-07-28] MEDS ORDERED: cephALEXin 500 MG CAP PO SCH (09:00)
[2019-07-28] MEDS ORDERED: CEROVITE ADV FORMULA TAB PO SCH (09:00)
[2019-07-28] MEDS ORDERED: PANTOprazole 40 MG TAB PO SCH (09:00)
[2019-07-28] MEDS ORDERED: LACTOBACILLUS ACIDOPHILUS (FLORANEX) TAB PO SCH (09:00)
[2019-07-28] MEDS: TAMSULOSIN HCL 0.4 MG CAP PO SCH (09:21)
--- NOTE | 2019-07-28 09:56 | Urology Progress Note ---
Date of Service July 28, 2019 Assessment & Plan (1) Bladder spasms: (2) Prostate cancer: 59yo M POD #4 s/p RARLP with Dr. Carrera, readmitted with bladder spasms/pelvic pain. Progressing slowly. UC&S prelim negative. SPT site with mild leaking, discomfort around insertion site. Constipation remains bothersome. Discussed plan of care with Dr. Carrera, okay to d/c SP tube. Removed at bedside by myself at 0910, pt tolerated well. Covered with 4x4's. Instructed to rest for at least 30 minutes prior to ambulating. Mild serous drainage from site to be expected for short period of time. Dulcolax supp ordered for constipation. Pt states he would like to produce BM prior to discharge. Otherwise, okay to discharge home from [facility] with flomax, ditropan 5mg BID PRN spasms, muscle relaxants. Meds already prescribed by Dr. Beard. Subjective 59yo M POD#4 s/p RALRP with SPT placement, readmitted with bladder spasms. Urethral catheter placed by Dr. Beard yesterday. Pt acknowledges major improvement in bladder spasms and overall discomfort with urethral sheldon. Draining clear yellow, no issues. SPT clamped, mild leaking around insertion site. Denies bladder spasms with initiation of ditropan, muscle relaxants. Mostly bothered by constipation, no BM yet despite miralax, milk of mag and colace inpatient. Denies major bloating, no n/v/f/c. Review of Systems Review of Systems: All systems reviewed & are unremarkable except as noted in HPI & below Physical Exam Physical Exam: A&Ox3 Resp rate regular abd soft incisions c/d/i SP tube site uncomfortable upon palpation but no surrounding ecchymosis, erythema Results & Data Vital Signs (Past 12 Hours) Vital Signs Temp Pulse Resp BP Pulse Ox 07/28/19 07:16 36.6 C 80 16 118/79 97 07/27/19 23:15 36.8 C 56 L 16 98/61 L 94 PG Care Time/CCT Total # of Minutes Spent Total Time Spent with Patient: Total time spent is greater than 50% in coordination of care (as documented) at patient's floor/unit and/or counseling patient:
--- NOTE | 2019-07-28 12:04 | Hospitalist Progress Note ---
Date of Service July 28, 2019 Assessment & Plan (1) Bladder spasms: Urology on consult -- appreciate recs Oxybutynin IR 5mg TID PRN Tamsulosin 0.4mg QAM TON (2) Intractable pain: Toradol scheduled. Percocet PRN (3) Prostate cancer: Reema 6 (3+3) s/p prostatectomy 07/25/[address] Carrera. (4) Constipation: Encourage ambulation. Added MiraLAX. Milk of mag this morning Will add fleet enema if unsuccessful (5) UTI (urinary tract infection): Will continue treatment as per Dr Beard recommendation with keflex (ou tpatient prescription already sent). Dispo: possible discharge this afternoon if patient has BM. Will need follow up with Urology. Subjective Denies any further bladder spasms. Suprapubic catheter removed this morning. Patient with sheldon catheter, draining yellow urine. Main concern today is that he has not had BM since , and states he is regular, daily. Denies abdominal pain, but feels bloated. Has been passing gas. Previously tried miralax, colace, milk of mag. Discussed fleet enema if continues to be unsuccessful. Hopeful for discharge later this afternoon. Results & Data Vital Signs (Past 12 Hours) Vital Signs Temp Pulse Resp BP Pulse Ox 07/28/19 07:16 36.6 C 80 16 118/79 97 PG Care Time/CCT Total # of Minutes Spent Total Time Spent with Patient: Total time spent is greater than 50% in coordination of care (as documented) at patient's floor/unit and/or counseling patient: (1) UTI (urinary tract infection) Hematuria presence: without hematuria Urinary tract infection type: site unspecified Qualified Code(s): N39.0 - Urinary tract infection, site not specified (2) Constipation Constipation type: drug induced constipation Qualified Code(s): K59.03 - Drug induced constipation
[2019-07-28] MEDS ORDERED: SOD PHOSPHATE/SOD BIPHOSPHATE ENEMA 132 ML BTL PR STA (12:26)
--- NOTE | 2019-07-28 13:01 | XRay Report ---
KUB CLINICAL HISTORY: Constipation. FINDINGS: 2 AP supine abdominal radiographs are correlated with abdominal CT dated 07/27/2019. A supra pubic catheter is in place. There is a nonobstructed abdominal bowel gas pattern noting moderate colo jovita fecal retention. There are no abnormal abdominal calcifications. No evidence of intraperitoneal f ree air is seen on these supine images. A small phlebolith is noted in the pelvis. The lung bases are clear as imaged. The bony structures appear intact. IMPRESSION: Moderate constipation. Electronically signed by: Demarco Black M.D. 07/28/2019 1:00 PM
--- NOTE | 2019-07-28 14:04 | Discharge Summary ---
Date of Service July 28, 2019 Admission HPI Per Admitting Provider Geronimo Mena is a 59 year old male admission for bladder spasms. Started after radical prostatectomy 3 days ago. Good relief with IV toradol after the operation but once home he started having severe pains lasting for increasing durations. Percocets reportedly had no effect on the pain. Outside of the spasm pain severity of pain is 3/10. His largest concern is that he lives relatively far away from the hospital and he would be by himself tomorrow therefore will have no one at home with him if this continues to occur at home. In the ER he has been seen by Dr Beard and had bladder irrigation and plan was to go home with keflex, oxybutynin, tamsulosin, Skelexin and previously prescribed Percocets however since pain continued to reoccur in ER urology has asked the hospitalist team to admit. Admission Exam Per Admitting Provider Constitutional: WD/WN, vitals as above Eyes: + anicteric sclerae; normal pupil size ENMT: external ear and nose normal, oropharynx normal Neck: trachea midline Respiratory: normal respiratory effort, lungs clear to auscultation Cardiovascular: RRR, no murmur, no edema Gastrointestinal (Abdomen): normal bowel sounds, soft, nontender, no hepatosplenomegaly Musculoskeletal: no cyanosis or clubbing, extremities motor strength 5/5 Skin: no rashes, warm and dry Neurologic: moves all extremities and awake; not confused Psychiatric: Orientation: alert and oriented x 3 Affect: + anxious affect Mood: + anxious mood Lymphatic: no cervical or axillary lymphadenopathy Principal Diagnosis Bladder Spasms Discharge Exam Constitutional WD/WN, vitals as above no acute distress Eyes + anicteric sclerae and PERRL Neck trachea midline, no thyromegaly Respiratory normal respiratory effort, lungs clear to auscultation Cardiovascular RRR, no murmur, no edema Gastrointestinal (Abdomen) normal bowel sounds, soft, nontender, no hepatosplenomegaly Musculoskeletal no cyanosis or clubbing, extremities motor strength 5/5 Skin no rashes, warm and dry Neurologic patellar DTR's 2+ bilat, sensation intact Psychiatric A+Ox3, euthymic affect Genitourinary sheldon catheter draining yellow urine Lymphatic no cervical or axillary lymphadenopathy Discharge Data Allergies Allergy/AdvReac Type Severity Reaction Status Date / Time No Known Allergies Allergy Verified 07/27/19 06:36 Consultations 07/27/19 12:10 ED Decision to Admit Stat 07/27/19 13:58 Consult Urology Stat Ordered Studies 07/27/19 09:21 CT abd pelvis IV con only Stat Hospital Course (1) Bladder spasms: S/P radical prostatectomy on 07/25/19 Urology on consult. Removed suprapubic catheter on 07/28. Continued sheldon catheter. Addition of ditropan, tamsulosin, muscle relaxants. Follow up with Dr. Beard as outpatient (2) Intractable pain: Toradol scheduled. Percocet PRN (3) Prostate cancer: Dustin 6 (3+3) s/p prostatectomy 07/25/[address] Carrera. (4) Constipation: Encourage ambulation. Added MiraLAX., Milk of mag BM x2 with administration of fleet enema prior to discharge. (5) UTI (urinary tract infection): Continued treatment as per Dr Beard recommendation with keflex (outpatient prescription already sent). Dispo: discharged home. Follow up with Urology as outpatient Total Time Total Time Spent Total Time Spent (In Minutes): 60 Discharge Plan Discharge Items Patient Disposition: Home - Self-Care Reason For Visit: INTRACTABLE PAIN Discharge Diagnosis: Bladder Spasms Goals: You have been hospitalized for an acute medical problem. During your stay at [facility], we have made an effort to correct the problem that brought you to the hospital while keeping you as comfortable as possible. Medications were used to bring your condition under control and your discharge instructions will include directions for any medications you should take after leaving the hospital. Please make sure you see your Primary Care Provider as part of your follow up plan. Activity: Resume your previous activity Non-emergency contact: Primary Care Provider and Urologist Call non-emergency contact if: you have any medication questions, your symptoms worsen and your pain is not controlled Follow-up/Referrals: Nima Carrera MD [Physician] - Estela Healy [Primary Care Provider] - Diet: Regular Addtl Attending Provider Instructions: You have been hospitalized for uncontrolled pain regarding bladder spasms following your Urological procedure by Dr. Beard. Prescriptions have been sent for the following, per Urology (Dr. Carrera): * Flomax 0.4mg by mouth once a day * Ditropan 5mg by mouth TWICE a day, NEEDED for bladder spasms * Metaxalone 800mg by mouth three times a day You should continue your Keflex (antibiotic) as prescribed -- a new prescription has been sent to your pharmacy. It is also recommended that you resume aspirin, 81mg daily. If you have recurrence of visual symptoms, please contact your primary care provider. You may want to try magnesium citrate over the counter to further assist with your bowel regimen. You should follow up with Dr. Beard's office in the next week. His office number is . You should also follow up with your primary care provider, Dr. Healy, in the next 3-5 days. If you have worsening pain, fever, or for any other symptoms that are concerning for you, please return to the closest emergency room. Pending Studies at Discharge: No Stand-Alone Forms: My [facility] Medications and DC Order Prescriptions: New tamsulosin [Flomax] 0.4 mg capsule 0.4 mg PO HS Qty: 30 RF: 0 metaxalone 800 mg tablet 800 mg PO TID PRN (Reason: muscle pain) Qty: 10 RF: 0 Continued folic acid 1 mg tablet 1 mg PO QAM RF: 0 lovastatin 10 mg tablet 10 mg PO Q OTHER DAY RF: 0 Centrum Silver Men 300-600-300 mcg Tablet 1 tab PO QAM RF: 0 Probiotic 3 billion cell Capsule 3,000 mmu cells PO QAM RF: 0 Joint Health 40-10-5-3.3 mg Tablet 1 tab PO TID RF: 0 oxycodone-acetaminophen [Percocet] 5-325 mg tablet 1 tab PO TID PRN (Reason: pain) Qty: 14 RF: 0 docusate sodium [Colace] 100 mg capsule 100 mg PO BID Qty: 60 RF: 0 omeprazole 20 mg capsule,delayed release(DR/EC) 20 mg PO BIDM RF: 0 hydrochlorothiazide 25 mg tablet 25 mg PO QAM RF: 0 irbesartan 75 mg tablet 75 mg PO QPM RF: 0 Discontinued ciprofloxacin HCl 500 mg tablet 500 mg PO BID 3 Days Qty: 6 RF: 0 Discharge Orders: Discharge Order (Routine); Ordered 07/28/19 Ordered By: Sheila Deshpande/Other Patient Handouts: Leg Bag Care Dc Admission Data Admit Date/Time: 07/27/19 12:47 Attending Provider: Sheila Sagastume Admit Provider: Kameron Kidd Primary Care Provider: Estela Healy Other Providers: Kameron Kidd ; Angel Beard Other Interventions: Discharge Summary Assessment (RN) Last Done: 07/28/19 18:47 DC Date/Time DO NOT enter until pt leaves facility: 07/28/19 19:42 Supervising Physician Co-Signing Physician Notes PA Supervision Note: I personally saw and examined the patient. I verified all francois points and agree with EDWIGE Wilhelm with the following exceptions and/or additions: Pt feeling much better, less pain on new medications. Afebrile. VSS RRR no mgr CTAB no wcr Abd +BS soft NT ND Ext no edema Stable for dc to home on meds as above, close Urology follow up
[2019-07-28 16:36] LABS: BUN Creatinine Ratio 14.7 (10-20); Calcium 8.5 mg/dl (8.5-10.1); Creatinine Clr Calc Pharmacy 79.7 ml/min; Est GFR (Non-African American) 76.8; Potassium 4.1 mmol/L (3.5-5.1)
[2019-07-28] MEDS ORDERED: SENNA 8.6 MG TAB PO SCH (21:00)
== END 2019-07-28 19:42 | disposition home or self-care (01) ==
LOC: ED 06:29 → 3W 06:29 → SUATTDRO 12:47 → 3W 13:30

== ENCOUNTER 2025-07-10 21:25 | Inpatient (IN) ==
[2025-07-10] MEDS: ACETAMINOPHEN 1,000 MG/100 ML VIAL IV STA (21:52)
[2025-07-10] MEDS: ONDANSETRON INJ 2 MG/ML 2 ML VIAL IV STA (21:53)
[2025-07-10] MEDS: SODIUM CHLORIDE 0.9% 1,000 ML IV SCH (21:53)
[2025-07-10] MEDS: MoRPHine SULFATE 4 MG/ML 1 ML CARP\\VIAL IV STA (21:53)
[2025-07-10 21:59] LABS: Hematocrit (blood only) 45.8 % (42.0-52.0); Hemoglobin 15.6 g/dL (14.0-18.0); Immature Granulocytes # (auto) 0.02 K/uL (0.01-0.20); Immature Granulocytes % (auto) 0.2 %; Mean Corpuscular Hemoglobin 31.5 pg (25.0-34.0); Mean Corpuscular Volume 92.3 fL (80.0-100.0); Platelet Count 178 K/uL (130-400); RDW Standard Deviation 45.2 fL (36.4-46.3); Red Blood Count 4.96 M/uL (4.70-6.10); White Blood Count 10.04 K/ul (4.8-10.8)
[2025-07-10] MEDS: OPTIRAY 320 100ml IV ONE (22:10)
[2025-07-10 22:16] LABS: Alanine Aminotransferase 28 U/L (7-52); Albumin Level 3.8 gm/dl (3.4-5.0); Alkaline Phosphatase 62 U/L (34-104); Anion Gap 6 (3-11); Bilirubin,Total 0.6 mg/dl (0.2-1.0); Blood Urea Nitrogen 17 mg/dl (6-23); Calcium 9.1 mg/dl (8.6-10.3); Carbon Dioxide 30 mmol/L (21-32); Chloride 103 mmol/L (98-107); Glucose 120 mg/dl (70-99(Fasting)); Magnesium 1.9 mg/dl (1.7-2.4); Potassium 3.4 mmol/L (3.5-5.1); Sodium 139 mmol/L (136-145); Total Protein 7.1 gm/dl (6.0-8.3)
--- NOTE | 2025-07-10 22:28 | Emergency Department Note ---
History of Present Illness General Chief complaint: Abdominal Pain Stated complaint: abdominal pain History of Present Illness Maximum Pain Intensity: 6 This 65-year-old male presents to the ER complaining of fever, chills nausea abdominal pain and generalized illness for the past few days. Abdominal pain started today and got much worse and patient was concerned and came in. He has had diverticulitis before but this feels different. Patient denies chest pain, dyspnea, cough, congestion. Home Medications Medication Instructions Recorded Confirmed Type [id number] 300 mcg-K 60 1 tab PO QAM 06/27/19 07/10/25 History mcg-lycop 600 mcg-lutein 300 mcg tablet (Centrum Silver Men) ascorbic acid (vitamin C) 500 mg 500 mg PO DAILY 09/09/20 07/10/25 History capsule cholecalciferol (vitamin D3) 25 25 mcg PO DAILY 09/09/20 07/10/25 History mcg (1,000 unit) chewable tablet Saccharomyces boulardii 250 mg 250 mg PO DAILY 10/30/23 07/10/25 History capsule (Daily Probiotic (S. boulardii)) docusate sodium 100 mg capsule 100 mg PO HS 02/04/25 07/10/25 History (Colace) irbesartan 75 mg tablet 225 mg PO HS 02/04/25 07/10/25 History rosuvastatin 5 mg tablet 5 mg PO Q OTHER DAY #45 tabs 04/13/25 07/10/25 Rx aspirin 81 mg tablet 81 mg PO DAILY #90 tabs 05/01/25 07/10/25 Rx omeprazole 20 mg capsule,delayed 20 mg PO BID #180 caps 06/29/25 07/10/25 Rx release folic acid 1 mg tablet 1 mg PO QAM #90 tabs 07/06/25 07/10/25 Rx hydrochlorothiazide 25 mg tablet 25 mg PO QAM #90 tabs 07/06/25 07/10/25 Rx zinc gluconate 50 mg tablet 50 mg PO DAILY 07/10/25 07/10/25 History Allergies Allergy/AdvReac Type Severity Reaction Status Date / Time No Known Allergies Allergy Verified 06/25/25 07:39 Past Med/Surg History Problem List (Updated 07/10/25 @ 23:41 by Saira March PA-C) COVID-19 (Acute) Diverticulitis of intestine with perforation without abscess (Acute) Hx of transient ischemic attack (TIA) 06/13/2011 - INITIALLY SEEN AT [facility], SENT TO MD IN [place] ([place]). HAD FACIAL DROOP WHICH RESOLVED IN 2 HOURS. CURRENTLY NO RESIDUAL EFFECTS. WAS EVALUATED BY NEUROLOGY [facility], TOLD TO TAKE FOLIC ACID DAILY, NO NEED TO F/U. History of diverticulitis Hyperglycemia GERD (gastroesophageal reflux disease) Sleep disturbance H/O prostate cancer Chronic venous insufficiency TSH elevation Varicose vein of leg FH: CAD (coronary artery disease) Anxiety Arthritis Male stress incontinence H/O prostatectomy July 24, 2019- [facility] Hyperlipidemia (Acute) Hypertension (Acute) Health care maintenance Medical History Anxiety Diverticulosis History of diverticulitis (11/18/24) seen in ed on 11/18/24- treated with abx Irregular heart rhythm saw dr. geiger last summer- had stress and echo at [facility]- all normal Hypertension Left lower quadrant abdominal pain GERD (gastroesophageal reflux disease) Chronic venous insufficiency wears compression socks daily Bluish skin discoloration Abnormal TSH "good recently" COVID-19 (02/2023) hx-09/2020, moderate symptoms for 10 days, had monoclonial infusion>resolved hx-04/2022, mild-moderate symptoms for 5-6 days, tx paxlovid>resolved hx-02/2023, mild symptoms>resolved Leg cramps "gets occasionally" Body aches after vaccination resolved Back problem lower back arthritis Abdominal hernia Left-sided post surgical intervention/2008/mesh placement; per pt still has left lower quadrant pain occasionally Elevated PSA hx Essential (primary) hypertension Hx of transient ischemic attack (TIA) 06/13/2011 - INITIALLY SEEN AT [facility], SENT TO IN [place] ([place]). HAD FACIAL DROOP WHICH RESOLVED IN 2 HOURS. CURRENTLY NO RESIDUAL EFFECTS. WAS EVALUATED BY NEUROLOGY [facility], TOLD TO TAKE FOLIC ACID DAILY, NO NEED TO F/U. Hyperlipidemia Prostate cancer Rising PSA, pretreatment PSA 3.72 Status post ultrasound-guided biopsies April 17, 2018 Adenocarcinoma the prostate Reema 3+3, 1 of 14 cores positive Prostate volume 25 Prostate density 0.148 surgey 2019, no chemo or xrt Surgical History [place] teeth extracted Status post left hip replacement (02/26/23) History of prostate biopsy History of left inguinal hernia repair (1998) History of esophagogastroduodenoscopy (EGD) Status post prostatectomy (07/24/19) History of foot surgery Hx of colonoscopy Family History Father Heart disease Myocardial infarction Hypertension Sister Family hx of colon cancer Liver cancer Ovarian cancer Colorectal cancer Cancer Brother No problems noted. Son Age: 45 No problems noted. Son Age: 42 No problems noted. Daughter Age: 48 No problems noted. Grandmother (Paternal) Family history of diabetes mellitus Mother Heart disease Myocardial infarction Hypertension Grandmother (Maternal) Stroke Other No family history of adverse response to anesthesia Denies family history of Prostate cancer Breast cancer Lung cancer Social History Smoking Status: Never smoker Tobacco Type: Cigarettes Age Started Using Tobacco: 15; Age Quit Using Tobacco: 31; packs per day: 0.5; Cigarettes Per Day: 11; Second Hand Exposure: No; Do You Dip or Chew Tobacco: No; Hx Alcohol Use: Yes Alcohol type: beer Alcohol Intake Frequency Comment: about twice a week Hx Substance Use: No Preferred Language: Nigerien Communication Ability: Effective Visual Impairment: Limited Hearing Ability: Normal Reel Fed Printer Required: No Beliefs That Will Affect Care: None marital status: Current Living Situation: Spouse current occupational status: employed 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 Feels Safe at Home: Yes Childhood Exposure to Second-Hand Smoke: No Diet: regular Dental Care, Regularly: Yes Physical Activity Frequency: Daily Seatbelt Use: always Sunscreen Use: Yes Assistive Devices: Glasses Review of Systems A total of 10 systems reviewed and were otherwise negative Physical Exam Vital Signs Vital Signs - 24 hr 07/10/25 21:30 07/10/25 21:30 07/10/25 21:30 Temperature Temperature Source Pulse Rate Pulse Rate from SpO2 Sensor Respiratory Rate Blood Pressure 181/114 H 181/114 H 181/114 H Blood Pressure Mean 143 143 143 Pulse Oximetry Oxygen Delivery Method Oxygen Flow Rate Sepsis Recent Fever Within 48 Hours Sepsis New/Unexplained Change in Mental Status Sepsis Action Taken by Nursing 07/10/25 21:30 07/10/25 21:30 07/10/25 21:33 Temperature Temperature Source Pulse Rate Pulse Rate from SpO2 Sensor 113 H Respiratory Rate 22 Blood Pressure 181/114 H 181/114 H Blood Pressure Mean 143 143 Pulse Oximetry 95 Oxygen Delivery Method Oxygen Flow Rate Sepsis Recent Fever Within 48 Hours Sepsis New/Unexplained Change in Mental Status Sepsis Action Taken by Nursing 07/10/25 21:36 07/10/25 21:42 07/10/25 21:43 Temperature 38.5 C H Temperature Source Oral Pulse Rate 122 H 115 H 118 H Pulse Rate from SpO2 Sensor 115 H Respiratory Rate 16 17 20 Blood Pressure 181/114 H Blood Pressure Mean 136 Pulse Oximetry 93 92 92 Oxygen Delivery Method Room Air Nasal Cannula Nasal Cannula Oxygen Flow Rate 2 2 Sepsis Recent Fever Within 48 Hours Yes Sepsis New/Unexplained Change in Mental Status N/A Sepsis Action Taken by Nursing Physician Notified 07/10/25 21:51 07/10/25 21:53 07/10/25 22:00 Temperature Temperature Source Pulse Rate 116 H Pulse Rate from SpO2 Sensor 118 H Respiratory Rate Blood Pressure 129/86 Blood Pressure Mean 117 Pulse Oximetry 92 Oxygen Delivery Method Oxygen Flow Rate Sepsis Recent Fever Within 48 Hours Sepsis New/Unexplained Change in Mental Status Sepsis Action Taken by Nursing 07/10/25 22:00 07/10/25 22:00 07/10/25 22:00 Temperature Temperature Source Pulse Rate Pulse Rate from SpO2 Sensor Respiratory Rate Blood Pressure 129/86 129/86 129/86 Blood Pressure Mean 117 117 117 Pulse Oximetry Oxygen Delivery Method Oxygen Flow Rate Sepsis Recent Fever Within 48 Hours Sepsis New/Unexplained Change in Mental Status Sepsis Action Taken by Nursing 07/10/25 22:00 07/10/25 22:18 07/10/25 22:21 Temperature Temperature Source Pulse Rate 113 H 112 H 130 H Pulse Rate from SpO2 Sensor 115 H 112 H 132 H Respiratory Rate 20 20 22 Blood Pressure Blood Pressure Mean Pulse Oximetry 91 97 95 Oxygen Delivery Method Oxygen Flow Rate Sepsis Recent Fever Within 48 Hours Sepsis New/Unexplained Change in Mental Status Sepsis Action Taken by Nursing VITALS: Vitals are noted on the nurse's note and reviewed by myself. Vital signs febrile. GENERAL: Pleasant gentleman, in no acute distress, nondiaphoretic, well- developed well-nourished. SKIN: The skin was without rashes, erythema, edema, or bruising. There is no tenting of the skin. Capillary reflex less than 2 seconds. HEAD: Normocephalic atraumatic. EARS: External auditory canals clear EYES: Pupils equal round and reactive to light and accommodation. Conjunctivae without injection, sclerae without icterus. Extraocular movements intact. NOSE: Patent, no discharge. MOUTH: Mucous membranes mildly dry. Pharynx without erythema or exudate. Uvula midline. Airway patent. Tongue does not deviate. NECK: Supple without nuchal rigidity. No lymphadenopathy. No thyromegaly. Cervical spine is nontender. No JVD. HEART: Tachycardic rate and rhythm LUNGS: Clear to auscultation bilaterally without wheezes, rales or rhonchi. No retractions or accessory muscle use. ABDOMEN: Positive bowel sounds x 4. Normal tympanic percussion. Soft, diffusely tender to palpation, without masses or organomegaly. He sign negative. No guarding or rebound tenderness. No CVA tenderness MUSCULOSKELETAL: No muscle atrophy, erythema, or edema noted. NEURO: Patient was alert and oriented to person place and time. Normal sensation to light and sharp touch. No focal neurological deficits. Course Administered Medications Discontinued Medications Sodium Chloride (Nss) 1,000 mls @ 999 mls/hr IV .Q1H1M TON Stop: 07/10/25 23:45 Last Admin: 07/10/25 23:37 Dose: 999 mls/hr Documented By: Infusion: 07/10/25 22:54 Dose: Infused Documented By: Admin: 07/10/25 21:53 Dose: 999 mls/hr Documented By: SAHIL Acetaminophen (Ofirmev) 1,000 mg in 100 mls @ 400 mls/hr IV NOW STA Stop: 07/10/25 21:57 Last Infusion: 07/10/25 22:37 Dose: Infused Documented By: Admin: 07/10/25 21:52 Dose: 400 mls/hr Documented By: SAHIL Ioversol (Optiray 320 100ml) 93 ml IV ONCE ONE Stop: 07/10/25 22:10 Last Admin: 07/10/25 22:10 Dose: 93 ml Documented By: TAQUERIA Morphine Sulfate (Morphine Sulfate 4 Mg/Ml 1 Ml Carp\\Vial) 4 mg IV NOW STA Stop: 07/10/25 21:44 Last Admin: 07/10/25 21:53 Dose: 4 mg Documented By: SAHIL Ondansetron HCl (Ondansetron Inj 2 Mg/Ml 2 Ml Vial) 4 mg IV NOW STA Stop: 07/10/25 21:44 Last Admin: 07/10/25 21:53 Dose: 4 mg Documented By: SAHIL Medical Decision Making Medical Records Attestation: I reviewed the patient's medical records. Home Medications Current Medication List: was personally reviewed by me Laboratory Data Attestation: I reviewed the patient's lab results. 07/10/25 21:35 07/10/25 21:35 Lab Results 07/10/25 07/10/25 07/10/25 Range/Units 21:35 21:49 21:50 WBC 10.04 (4.8-10.8) K/ul RBC 4.96 (4.70-6.10) M/uL Hgb 15.6 (14.0-18.0) g/dL POC Hgb 13.6 L (14.0-18.0) g/dl Hct 45.8 (42.0-52.0) % POC Hct 40 L (42-52) % MCV 92.3 (80.0-100.0) fL MCH 31.5 (25.0-34.0) pg MCHC 34.1 (32.0-36.0) g/dL RDW Std Deviation 45.2 (36.4-46.3) fL RDW Coeff of Nithya 13.3 (11.5-14.5) % Plt Count 178 (130-400) K/uL MPV 12.1 (9.4-12.4) fL Immature Gran % (Auto) 0.2 % Neut % (Auto) 81.0 % Lymph % (Auto) 13.9 % [place] % (Auto) 3.8 % Eos % (Auto) 0.9 % Baso % (Auto) 0.2 % Neut # (Auto) 8.13 H (1.40-6.50) K/uL Lymph # (Auto) 1.40 (1.20-3.40) K/uL [place] # (Auto) 0.38 (0.11-0.59) K/uL Eos # (Auto) 0.09 (0.00-0.50) K/uL Baso # (Auto) 0.02 (0.00-0.20) K/uL Immature Gran # (Auto) 0.02 (0.01-0.20) K/uL POC Sodium 142 (135-144) mmol/L Sodium 139 (136-145) mmol/L POC Potassium 3.4 (3.3-5.0) mmol/L Potassium 3.4 L (3.5-5.1) mmol/L POC Chloride 100 L (101-112) mmol/L Chloride 103 (98-107) mmol/L Carbon Dioxide 30 (21-32) mmol/L POC Total CO2 26 (24-31) mmol/L Anion Gap 6 (3-11) POC Anion Gap 20.0 (16-25) mmol/L POC BUN 17 (7-18) mg/dl BUN 17 (6-23) mg/dl Creatinine 1.06 (0.6-1.4) mg/dl POC Creatinine 1.1 (0.6-1.3) mg/dl Est Cr Clr Drug Dosing Not Reportable eGFR 77.40 BUN/Creatinine Ratio 16.0 (10-20) Glucose 120 H (70-99(Fasting)) mg/dl POC Glucose (other) 113 H (70-99) mg/dl Lactate 1.5 (0.4-2.0) mmol/L Calcium 9.1 (8.6-10.3) mg/dl POC Ioniz Calcium Nevin 1.08 L (1.12-1.32) mmol/l Magnesium 1.9 (1.7-2.4) mg/dl Total Bilirubin 0.6 (0.2-1.0) mg/dl Direct Bilirubin 0.1 (0-0.2) mg/dl AST 26 (13-39) U/L ALT 28 (7-52) U/L Alkaline Phosphatase 62 (34-104) U/L Troponin I High Sens 4.9 (0-20) pg/ml Total Protein 7.1 (6.0-8.3) gm/dl Albumin 3.8 (3.4-5.0) gm/dl Procalcitonin 0.06 (0-0.5) ng/ml Urine Color Urine Appearance (Clear) Urine pH (4.5-7.5) Ur Specific [place] (1.000-1.030) Urine Protein (Negative) Urine Glucose (UA) (Negative) Urine Ketones (Negative) Urine Blood (Negative) Urine Nitrite (Negative) Urine Bilirubin (Negative) Urine Urobilinogen (Negative) Ur Leukocyte Esterase (Negative) Urine Comment SARS-CoV-2 (PCR) POSITIVE A (Negative) Influenza Type A (PCR) Negative (Neg) Influenza Type B (PCR) Negative (Neg) RSV (RT-PCR) Negative (Neg) 07/10/25 Range/Units 22:24 WBC (4.8-10.8) K/ul RBC (4.70-6.10) M/uL Hgb (14.0-18.0) g/dL POC Hgb (14.0-18.0) g/dl Hct (42.0-52.0) % POC Hct (42-52) % MCV (80.0-100.0) fL MCH (25.0-34.0) pg MCHC (32.0-36.0) g/dL RDW Std Deviation (36.4-46.3) fL RDW Coeff of Nithya (11.5-14.5) % Plt Count (130-400) K/uL MPV (9.4-12.4) fL Immature Gran % (Auto) % Neut % (Auto) % Lymph % (Auto) % [place] % (Auto) % Eos % (Auto) % Baso % (Auto) % Neut # (Auto) (1.40-6.50) K/uL Lymph # (Auto) (1.20-3.40) K/uL [place] # (Auto) (0.11-0.59) K/uL Eos # (Auto) (0.00-0.50) K/uL Baso # (Auto) (0.00-0.20) K/uL Immature Gran # (Auto) (0.01-0.20) K/uL POC Sodium (135-144) mmol/L Sodium (136-145) mmol/L POC Potassium (3.3-5.0) mmol/L Potassium (3.5-5.1) mmol/L POC Chloride (101-112) mmol/L Chloride (98-107) mmol/L Carbon Dioxide (21-32) mmol/L POC Total CO2 (24-31) mmol/L Anion Gap (3-11) POC Anion Gap (16-25) mmol/L POC BUN (7-18) mg/dl BUN (6-23) mg/dl Creatinine (0.6-1.4) mg/dl POC Creatinine (0.6-1.3) mg/dl Est Cr Clr Drug Dosing eGFR BUN/Creatinine Ratio (10-20) Glucose (70-99(Fasting)) mg/dl POC Glucose (other) (70-99) mg/dl Lactate (0.4-2.0) mmol/L Calcium (8.6-10.3) mg/dl POC Ioniz Calcium Nevin (1.12-1.32) mmol/l Magnesium (1.7-2.4) mg/dl Total Bilirubin (0.2-1.0) mg/dl Direct Bilirubin (0-0.2) mg/dl AST (13-39) U/L ALT (7-52) U/L Alkaline Phosphatase (34-104) U/L Troponin I High Sens (0-20) pg/ml Total Protein (6.0-8.3) gm/dl Albumin (3.4-5.0) gm/dl Procalcitonin (0-0.5) ng/ml Urine Color Yellow Urine Appearance Clear (Clear) Urine pH 6.0 (4.5-7.5) Ur Specific [place] 1.043 H (1.000-1.030) Urine Protein Negative (Negative) Urine Glucose (UA) Negative (Negative) Urine Ketones Trace H (Negative) Urine Blood Negative (Negative) Urine Nitrite Negative (Negative) Urine Bilirubin Negative (Negative) Urine Urobilinogen Negative (Negative) Ur Leukocyte Esterase Negative (Negative) Urine Comment SARS-CoV-2 (PCR) (Negative) Influenza Type A (PCR) (Neg) Influenza Type B (PCR) (Neg) RSV (RT-PCR) (Neg) Imaging Data Attestation: I personally reviewed and interpreted this imaging study as follows: Radiologist's Impression: Abdomen/Pelvis CT 07/10/25 21:43 Exam(s): CT ABDOMEN + PELVIS With Contrast IV Amt: 93 cc [id number] EXAM: CT Abdomen and Pelvis With Intravenous Contrast CLINICAL HISTORY: Reason for exam: abd pain, fever, hx divertic. TECHNIQUE: Axial computed tomography images of the abdomen and pelvis with intravenous contrast. CTDI is 20.07 mGy and DLP is 939.32 mGy-cm. Automated exposure control was utilized for the study. A dose lowering technique was utilized adhering to the principles of ALARA. CONTRAST: Patient received 93 cc [id number] of IV contrast COMPARISON: Comparison CT 11/16/2024 FINDINGS: ABDOMEN: Liver: Unremarkable. Gallbladder and bile ducts: Unremarkable. Pancreas: Unremarkable. Spleen: Unremarkable. Adrenals: Unremarkable. Kidneys and ureters: Unremarkable. No obstructing stones. No hydronephrosis. Stomach and bowel: Acute diverticulitis of the sigmoid colon. There is contained perforation with a few foci of gas in the immediately adjacent mesentery. No fluid collection or subdiaphragmatic air. Focal ileus in the right lower quadrant small bowel. Duodenal diverticulosis. PELVIS: Appendix: No findings to suggest acute appendicitis. Bladder: Unremarkable. Reproductive: Unremarkable as visualized. ABDOMEN and PELVIS: Intraperitoneal space: Unremarkable. No free air. No significant fluid collection. Bones/joints: Left hip arthroplasty. Soft tissues: Unremarkable. Vasculature: Unremarkable. Lymph nodes: Unremarkable. IMPRESSION: Acute diverticulitis of the sigmoid colon. There is contained perforation with a few foci of gas in the immediately adjacent mesentery. No fluid collection or subdiaphragmatic air. Electronically signed by: Angelito Lechuga MD 07/10/25 23:26 PM Chest X-Ray 07/10/25 21:43 Exam(s): XR CXR 1 VIEW EXAM: XR Chest, 1 View CLINICAL HISTORY: Reason for exam: Sepsis. TECHNIQUE: Frontal view of the chest. COMPARISON: Chest x-ray 07/03/2019 FINDINGS: Lungs: Atelectasis at the left lung base. No consolidation. Pleural space: No pleural effusion. No pneumothorax. Heart: Unremarkable. No cardiomegaly. IMPRESSION: No acute findings in the chest. Electronically signed by: Angelito Lechuga MD 07/10/25 22:41 PM [facility] Narrative Prior records/ancillary studies reviewed. Triage Nursing notes reviewed. Additional history obtained from family. The patient's history was concerning for fever. Differential diagnosis: Etiologies such as intra-abdominal, diverticulitis, perforation, viral syndrome, otitis, pharyngitis, pneumonia, influenza, meningitis, urinary tract infection, sepsis, bacteremia, as well as others were entertained. Physical examination: As above ER treatment provided: An order was placed for continuous cardiac monitoring. The monitor shows a rate of 60-1 20 with a sinus rhythm per my interpretation. IV fluids, Tylenol, morphine, Zofran were ordered Zosyn was given for diverticulitis with microperforation without abscess On reassessment the patient felt better. Diagnostics interpreted by me: ECG: Ordered for weakness EKG: Normal sinus, normal intervals, minimal ST depression in the inferior leads most likely rate dependent, impression sinus tachycardia minimal ST depression in the inferior leads independently interpreted by myself The labs Independently Interpreted by myself revealed no worrisome leukocytosis, negative lactic, negative procalcitonin Negative troponin Blood cultures pending Negative urine Imaging studies: Imaging was reviewed and read by radiology Consultation: A consultation was placed with hospitalist. The case was discussed and diagnostics were reviewed. The patient was evaluated in the ER for further treatment. This appears to be consistent with COVID with diverticulitis with microperforation without abscess. Patient was started on broad-spectrum antibiotics. Lactic was negative. Blood cultures are pending. He was given medicine and antibiotics as above. Medicine was consulted and the case was discussed. He will be evaluated for admission.. By the evaluation outlined above emergent etiologies such as otitis, pharyngitis, pneumonia, meningitis, urinary tract infection, sepsis, bacteremia, as well as others were deemed relatively unlikely. The pt informed about the findings as listed above. All questions were answered and pleased with the treatment. The chart was completed utilizing Sh[employer] Speech voice recognition software. Grammatical errors, random word insertions, pronoun errors, and incomplete sentences are an occassional consequence of this system due to software limitations, ambient noise, and hardware issues. Any formal questions or concerns about the content, text, or information contained within the body of this dictation should be directly addressed to the physician medical assistant dermatology for clarification. Impression & Plan Diverticulitis of intestine with perforation without abscess, COVID-19 Discharge Plan Visit Data Chief Complaint: Abdominal Pain Stated Complaint: abdominal pain ED Provider: Lawrence Luciano ED Midlevel Provider: Saira March Discharge Problem: Diverticulitis of intestine with perforation without abscess, COVID-19 Patient Disposition: Admitted As Inpatient Condition: Fair Forms Stand Alone Forms: My [facility] Prescriptions Prescriptions: No Action rosuvastatin 5 mg tablet 5 mg PO Q OTHER DAY Qty: 45 1RF aspirin 81 mg tablet 81 mg PO DAILY Qty: 90 3RF omeprazole 20 mg capsule,delayed release(DR/EC) 20 mg PO BID Qty: 180 1RF folic acid 1 mg tablet 1 mg PO QAM Qty: 90 3RF hydrochlorothiazide 25 mg tablet 25 mg PO QAM Qty: 90 3RF ascorbic acid (vitamin C) 500 mg capsule 500 mg PO DAILY cholecalciferol (vitamin D3) 25 mcg (1,000 unit) tablet,chewable 25 mcg PO DAILY Saccharomyces boulardii [Daily Probiotic (S. boulardii)] 250 mg capsule 250 mg PO DAILY Centrum Silver Men 300-600-300 mcg Tablet 1 tab PO QAM zinc gluconate [Zinc-50] 50 mg Tablet 50 mg PO DAILY docusate sodium [Colace] 100 mg Capsule 100 mg PO HS irbesartan 75 mg tablet 225 mg PO HS Referrals Referrals: Marlon Hassan MD [Primary Care Provider] - Discharge Problem: Diverticulitis of intestine with perforation without abscess Qualifiers: Diverticulitis site: unspecified part of intestinal tract Diverticulitis bleeding: without bleeding Qualified Code(s): K57.80 - Diverticulitis of intestine, part unspecified, with perforation and abscess without bleeding
[2025-07-10 22:33] LABS: Appearance Urine Clear (Clear); Glucose Urine UA Negative (Negative)
[2025-07-10 22:34] LABS: Influenza A virus by PCR Negative (Neg); Influenza B virus by PCR Negative (Neg); SARS CoV2 RNA(COVID-19) Ceph POSITIVE (Negative)
--- NOTE | 2025-07-10 22:43 | XRay Report ---
Exam(s): XR CXR 1 VIEW EXAM: XR Chest, 1 View CLINICAL HISTORY: Reason for exam: Sepsis. TECHNIQUE: Frontal view of the chest. COMPARISON: Chest x-ray 07/03/2019 FINDINGS: Lungs: Atelectasis at the left lung base. No consolidation. Pleural space: No pleural effusion. No pneumothorax. Heart: Unremarkable. No cardiomegaly. IMPRESSION: No acute findings in the chest. Electronically signed by: Angelito Lechuga MD 07/10/25 22:41 PM
--- NOTE | 2025-07-10 23:27 | CT Scan Report ---
Exam(s): CT ABDOMEN + PELVIS With Contrast IV Amt: 93 cc [id number] EXAM: CT Abdomen and Pelvis With Intravenous Contrast CLINICAL HISTORY: Reason for exam: abd pain, fever, hx divertic. TECHNIQUE: Axial computed tomography images of the abdomen and pelvis with intravenous contrast. CTDI is 20.07 mGy and DLP is 939.32 mGy-cm. Automated exposure control was utilized for the study. A dose lowering technique was utilized adhering to the principles of ALARA. CONTRAST: Patient received 93 cc [id number] of IV contrast COMPARISON: Comparison CT 11/16/2024 FINDINGS: ABDOMEN: Liver: Unremarkable. Gallbladder and bile ducts: Unremarkable. Pancreas: Unremarkable. Spleen: Unremarkable. Adrenals: Unremarkable. Kidneys and ureters: Unremarkable. No obstructing stones. No hydronephrosis. Stomach and bowel: Acute diverticulitis of the sigmoid colon. There is contained perforation with a few foci of gas in the immediately adjacent mesentery. No fluid collection or subdiaphragmatic air. Focal ileus in the right lower quadrant small bowel. Duodenal diverticulosis. PELVIS: Appendix: No findings to suggest acute appendicitis. Bladder: Unremarkable. Reproductive: Unremarkable as visualized. ABDOMEN and PELVIS: Intraperitoneal space: Unremarkable. No free air. No significant fluid collection. Bones/joints: Left hip arthroplasty. Soft tissues: Unremarkable. Vasculature: Unremarkable. Lymph nodes: Unremarkable. IMPRESSION: Acute diverticulitis of the sigmoid colon. There is contained perforation with a few foci of gas in the immediately adjacent mesentery. No fluid collection or subdiaphragmatic air. Electronically signed by: Angelito Lechuga MD 07/10/25 23:26 PM
[2025-07-11] MEDS: PIPERACILLIN/TAZOBACTAM 4.5 GM/100 ML BAG IV ONE (00:05)
[2025-07-11] MEDS: MoRPHine SULFATE 4 MG/ML 1 ML CARP\\VIAL IV STA (00:05)
--- NOTE | 2025-07-11 00:08 | History & Physical Report ---
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 Overall labs are grossly unremarkable with a normal lactate and procalcitonin. COVID testing was positive and CTAP does reveal evidence of acute sigmoid diverticulitis. Admission for diverticulitis with contained perforation in setting of COVID infection. 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 Symptoms improving. Not vaccinated. - CBC WNL, lactate and procalcitonin WNL - CXR no acute findings - IS, O2 prn - DuoNeb lacho #Hypokalemia Asymptomatic currently. Magnesium stable. - K 3.4, magnesium 1.9 - BMP am - 10 mEq KCl IV - Hold HCTZ #HTN- HCTZ, irbesartan - Hold blood pressure medications at time of admission, pending clinical course #GERD- Omeprazole - continue once diet ordered #HLD- Rosuvastatin - continue once diet ordered Dispo: Admit, med/tele VTE prophylaxis: SCDs This document was dictated utilizing [employer]. Please excuse any grammatical errors that may be secondary to use of this software. 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 Pt reports that the day [employer] REPRESENTATIVE he had not had a BM which was abnormal for him because he has BMs every day usually. That evening he took a dose of MiraLAX. The morning of arrival he reports having a BM kathe "size of your L arm", followed by smaller, soft, "fluffy" BMs throughout the day. There was no blood noted. He was at basketball practice from [id number] and notes that he again started to have the sensation that he had to have another BM but it was a more intense feeling. This feeling continued into around [id number] the day of arrival and then turned into abdominal pain, located at his umbilicus and just below it as well. He reports that normally, if he has abdominal pain, he is able to "kneed out" the pain, but this was not the case the day of arrival. The pain is a sharp, constant pain that comes and goes in waves. He has not had any N/V. No fever or chills. Admits to exposure to multiple sick children between [employer] and basketball, so he did experience URI symptoms (rhinorrhea) which started around 5 days [employer] REPRESENTATIVE but have improved. He has not had a COVID vaccine. Has had COVID 5 times, per patient. He denies additional symptoms to include CP, SOB, palpations, numbness/tingling, F/C, LUTS, weakness, syncope, or falls. Has a history of diverticulitis, but states that this feels "different." ED evaluation revealed CBC without leukocytosis or leukopenia, stable H&H and platelets; CMP potassium 3.4, glucose 120; magnesium 1.9; lactate 1.5, procalcitonin 0.06; UA without infection; COVID/flu/RSV positive for COVID; CXR no acute findings; CTAP acute diverticulitis sigmoid colon, contained perforation with few foci of gas in the immediate adjacent mesentery, no fluid collection or subcu diaphragmatic air.; Provided with 1L NSS, Zosyn 4.5 g IV, Zofran 4 mg IV, morphine 4 mg IV x 2, acetaminophen 1 g IV in ED. Please see Dr. Morris's attestation for adjustments/additions to treatment plan. Allergies Allergy/AdvReac Type Severity Reaction Status Date / Time No Known Allergies Allergy Verified 06/25/25 07:39 Home Medications Medication Instructions Recorded Confirmed Type [id number] 300 mcg-K 60 1 tab PO QAM 06/27/19 07/10/25 History mcg-lycop 600 mcg-lutein 300 mcg tablet (Centrum Silver Men) ascorbic acid (vitamin C) 500 mg 500 mg PO DAILY 09/09/20 07/10/25 History capsule cholecalciferol (vitamin D3) 25 25 mcg PO DAILY 09/09/20 07/10/25 History mcg (1,000 unit) chewable tablet Saccharomyces boulardii 250 mg 250 mg PO DAILY 10/30/23 07/10/25 History capsule (Daily Probiotic (S. boulardii)) docusate sodium 100 mg capsule 100 mg PO HS 02/04/25 07/10/25 History (Colace) irbesartan 75 mg tablet 225 mg PO HS 02/04/25 07/10/25 History rosuvastatin 5 mg tablet 5 mg PO Q OTHER DAY #45 tabs 04/13/25 07/10/25 Rx aspirin 81 mg tablet 81 mg PO DAILY #90 tabs 05/01/25 07/10/25 Rx omeprazole 20 mg capsule,delayed 20 mg PO BID #180 caps 06/29/25 07/10/25 Rx release folic acid 1 mg tablet 1 mg PO QAM #90 tabs 07/06/25 07/10/25 Rx hydrochlorothiazide 25 mg tablet 25 mg PO QAM #90 tabs 07/06/25 07/10/25 Rx zinc gluconate 50 mg tablet 50 mg PO DAILY 07/10/25 07/10/25 History Past Med/Surg History Problem List Hypokalemia COVID-19 (Acute) Diverticulitis of intestine with perforation without abscess (Acute) Hx of transient ischemic attack (TIA) 06/13/2011 - INITIALLY SEEN AT [facility], SENT TO IN [place] ([place]). HAD FACIAL DROOP WHICH RESOLVED IN 2 HOURS. CURRENTLY NO RESIDUAL EFFECTS. WAS EVALUATED BY NEUROLOGY [facility], TOLD TO TAKE FOLIC ACID DAILY, NO NEED TO F/U. History of diverticulitis Hyperglycemia GERD (gastroesophageal reflux disease) Sleep disturbance H/O prostate cancer Chronic venous insufficiency TSH elevation Varicose vein of leg FH: CAD (coronary artery disease) Anxiety Arthritis Male stress incontinence H/O prostatectomy July 24, 2019- [facility] Hyperlipidemia (Acute) Hypertension (Acute) Health care maintenance Medical History Anxiety Diverticulosis History of diverticulitis (11/18/24) seen in ed on 11/18/24- treated with abx Irregular heart rhythm saw dr. geiger last summer- had stress and echo at [facility]- all normal Hypertension Left lower quadrant abdominal pain GERD (gastroesophageal reflux disease) Chronic venous insufficiency wears compression socks daily Bluish skin discoloration Abnormal TSH "good recently" COVID-19 (02/2023) hx-09/2020, moderate symptoms for 10 days, had monoclonial infusion>resolved hx-04/2022, mild-moderate symptoms for 5-6 days, tx paxlovid>resolved hx-02/2023, mild symptoms>resolved Leg cramps "gets occasionally" Body aches after vaccination resolved Back problem lower back arthritis Abdominal hernia Left-sided post surgical intervention/2008/mesh placement; per pt still has left lower quadrant pain occasionally Elevated PSA hx Essential (primary) hypertension Hyperlipidemia Prostate cancer Rising PSA, pretreatment PSA 3.72 Status post ultrasound-guided biopsies April 17, 2018 Adenocarcinoma the prostate Reema 3+3, 1 of 14 cores positive Prostate volume 25 Prostate density 0.148 surgey 2019, no chemo or xrt Surgical History [place] teeth extracted Status post left hip replacement (02/26/23) 02/26/23 History of prostate biopsy malignant History of left inguinal hernia repair (1998) History of esophagogastroduodenoscopy (EGD) Status post prostatectomy (07/24/19) 07/2019 laparoscopic radical retropubic prostatectomy History of foot surgery right big toe joint fusion Hx of colonoscopy Family History Father , age 52 Heart disease Myocardial infarction Hypertension Sister , age 51 of colon cancer Family hx of colon cancer form Colon Cancer 03/03/2015 Liver cancer Ovarian cancer Colorectal cancer Cancer Brother No problems noted. Son Age: 45 No problems noted. Son Age: 42 No problems noted. Daughter Age: 48 No problems noted. Grandmother (Paternal) Family history of diabetes mellitus Mother Heart disease Myocardial infarction Hypertension Grandmother (Maternal) Stroke Other No family history of adverse response to anesthesia Denies family history of Prostate cancer Breast cancer Lung cancer Social History Smoking Status: Current some day smoker Tobacco Type: Cigarettes Age Started Using Tobacco: 15; Age Quit Using Tobacco: 31; packs per day: 0.5; Cigarettes Per Day: 11; Second Hand Exposure: No; Do You Dip or Chew Tobacco: No; Hx Alcohol Use: Yes Alcohol type: beer Alcohol Intake Frequency Comment: about twice a week Hx Substance Use: No Preferred Language: Citizen Of [place] Communication Ability: Effective Visual Impairment: Limited Hearing Ability: Normal Guest Services Manager Required: No Beliefs That Will Affect Care: None marital status: Current Living Situation: Family current occupational status: employed 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 Other Information That Helps Us Care for You: No Feels Safe at Home: Yes Safety Concerns: Feels Safe At This Time Childhood Exposure to Second-Hand Smoke: No Diet: regular Dental Care, Regularly: Yes Physical Activity Frequency: Daily Seatbelt Use: always Sunscreen Use: Yes Assistive Devices: Glasses Review of Systems Review of Systems: All systems reviewed & are unremarkable except as noted in Subjective Physical Exam Physical Exam: General: No acute distress Skin: Warm and dry Head: Normocephalic, atraumatic Eyes: PERRL, conjunctivae clear, sclera non-icteric; wearing glasses ENT: External ear and ear canal without swelling; nose atraumatic; good dentition, tongue normal appearance, pharynx normal Neck: Supple, no LAD Cardio: RRR, no M/G/R, S1 and S2 normal Resp: No respiratory distress, Lungs CTA in all lobes bilaterally, no wheezes, rales, or rhonchi Abdomen: Soft, symmetric, generalized tenderness to palpation throughout, no guarding or rebound tenderenss; No masses or hepatosplenomegaly; Bowel sounds normoactive MSK: No deformities; pulses palpable and equal; no edema. Neuro: Awake, alert; Sensation intact bilaterally; CN grossly intact Psych: Appropriate mood and affect; good judgement and insight. present in room at time of visit. Results & Data Results & Data Vital Signs (Past 12 Hours) Vital Signs Temp Pulse Resp BP Pulse Ox O2 Del Method O2 Flow Rate 07/10/25 22:21 130 H 22 95 07/10/25 22:18 112 H 20 97 07/10/25 22:00 113 H 20 91 07/10/25 22:00 129/86 07/10/25 22:00 129/86 07/10/25 22:00 129/86 07/10/25 22:00 129/86 07/10/25 21:53 116 H 07/10/25 21:51 92 07/10/25 21:43 118 H 20 92 Nasal Cannula 2 07/10/25 21:42 115 H 17 92 07/10/25 21:36 38.5 C H 122 H 16 181/114 H 93 Room Air, Nasal Cannula 2 07/10/25 21:33 22 95 07/10/25 21:30 181/114 H 07/10/25 21:30 181/114 H 07/10/25 21:30 181/114 H 07/10/25 21:30 181/114 H 07/10/25 21:30 181/114 H Laboratory Results 07/10/25 21:50 Aerobic Blood Culture - Pending Blood Anaerobic Blood Culture - Pending 07/10/25 21:50 Aerobic Blood Culture - Pending Blood Anaerobic Blood Culture - Pending 07/10/25 07/10/25 07/10/25 22:24 21:50 21:49 WBC RBC Hgb POC Hgb 13.6 L Hct POC Hct 40 L MCV MCH MCHC RDW Std Deviation RDW Coeff of Ntihya Plt Count MPV Immature Gran % (Auto) Neut % (Auto) Lymph % (Auto) [place] % (Auto) Eos % (Auto) Baso % (Auto) Neut # (Auto) Lymph # (Auto) [place] # (Auto) Eos # (Auto) Baso # (Auto) Immature Gran # (Auto) POC Sodium 142 Sodium POC Potassium 3.4 Potassium POC Chloride 100 L Chloride Carbon Dioxide POC Total CO2 26 Anion Gap POC Anion Gap 20.0 POC BUN 17 BUN Creatinine POC Creatinine 1.1 Est Cr Clr Drug Dosing eGFR BUN/Creatinine Ratio Glucose POC Glucose (other) 113 H Lactate Calcium POC Ioniz Calcium Nevin 1.08 L Magnesium Total Bilirubin Direct Bilirubin AST ALT Alkaline Phosphatase Troponin I High Sens Total Protein Albumin Procalcitonin Urine Color Yellow Urine Appearance Clear Urine pH 6.0 Ur Specific [place] 1.043 H Urine Protein Negative Urine Glucose (UA) Negative Urine Ketones Trace H Urine Blood Negative Urine Nitrite Negative Urine Bilirubin Negative Urine Urobilinogen Negative Ur Leukocyte Esterase Negative Urine Comment SARS-CoV-2 (PCR) POSITIVE A Influenza Type A (PCR) Negative Influenza Type B (PCR) Negative RSV (RT-PCR) Negative 07/10/25 21:35 WBC 10.04 RBC 4.96 Hgb 15.6 POC Hgb Hct 45.8 POC Hct MCV 92.3 MCH 31.5 MCHC 34.1 RDW Std Deviation 45.2 RDW Coeff of Nithya 13.3 Plt Count 178 MPV 12.1 Immature Gran % (Auto) 0.2 Neut % (Auto) 81.0 Lymph % (Auto) 13.9 [place] % (Auto) 3.8 Eos % (Auto) 0.9 Baso % (Auto) 0.2 Neut # (Auto) 8.13 H Lymph # (Auto) 1.40 [place]verse # (Auto) 0.38 Eos # (Auto) 0.09 Baso # (Auto) 0.02 Immature Gran # (Auto) 0.02 POC Sodium Sodium 139 POC Potassium Potassium 3.4 L POC Chloride Chloride 103 Carbon Dioxide 30 POC Total CO2 Anion Gap 6 POC Anion Gap POC BUN BUN 17 Creatinine 1.06 POC Creatinine Est Cr Clr Drug Dosing Not Reportable eGFR 77.40 BUN/Creatinine Ratio 16.0 Glucose 120 H POC Glucose (other) Lactate 1.5 Calcium 9.1 POC Ioniz Calcium Nevin Magnesium 1.9 Total Bilirubin 0.6 Direct Bilirubin 0.1 AST 26 ALT 28 Alkaline Phosphatase 62 Troponin I High Sens 4.9 Total Protein 7.1 Albumin 3.8 Procalcitonin 0.06 Urine Color Urine Appearance Urine pH Ur Specific [place] Urine Protein Urine Glucose (UA) Urine Ketones Urine Blood Urine Nitrite Urine Bilirubin Urine Urobilinogen Ur Leukocyte Esterase Urine Comment SARS-CoV-2 (PCR) Influenza Type A (PCR) Influenza Type B (PCR) RSV (RT-PCR) Diagnostic Findings Abdomen/Pelvis CT 07/10/25 21:43 Exam(s): CT ABDOMEN + PELVIS With Contrast IV Amt: 93 cc [id number] EXAM: CT Abdomen and Pelvis With Intravenous Contrast CLINICAL HISTORY: Reason for exam: abd pain, fever, hx divertic. TECHNIQUE: Axial computed tomography images of the abdomen and pelvis with intravenous contrast. CTDI is 20.07 mGy and DLP is 939.32 mGy-cm. Automated exposure control was utilized for the study. A dose lowering technique was utilized adhering to the principles of ALARA. CONTRAST: Patient received 93 cc [id number] of IV contrast COMPARISON: Comparison CT 11/16/2024 FINDINGS: ABDOMEN: Liver: Unremarkable. Gallbladder and bile ducts: Unremarkable. Pancreas: Unremarkable. Spleen: Unremarkable. Adrenals: Unremarkable. Kidneys and ureters: Unremarkable. No obstructing stones. No hydronephrosis. Stomach and bowel: Acute diverticulitis of the sigmoid colon. There is contained perforation with a few foci of gas in the immediately adjacent mesentery. No fluid collection or subdiaphragmatic air. Focal ileus in the right lower quadrant small bowel. Duodenal diverticulosis. PELVIS: Appendix: No findings to suggest acute appendicitis. Bladder: Unremarkable. Reproductive: Unremarkable as visualized. ABDOMEN and PELVIS: Intraperitoneal space: Unremarkable. No free air. No significant fluid collection. Bones/joints: Left hip arthroplasty. Soft tissues: Unremarkable. Vasculature: Unremarkable. Lymph nodes: Unremarkable. IMPRESSION: Acute diverticulitis of the sigmoid colon. There is contained perforation with a few foci of gas in the immediately adjacent mesentery. No fluid collection or subdiaphragmatic air. Electronically signed by: Angelito Lechuga MD 07/10/25 23:26 PM Chest X-Ray 07/10/25 21:43 Exam(s): XR CXR 1 VIEW EXAM: XR Chest, 1 View CLINICAL HISTORY: Reason for exam: Sepsis. TECHNIQUE: Frontal view of the chest. COMPARISON: Chest x-ray 07/03/2019 FINDINGS: Lungs: Atelectasis at the left lung base. No consolidation. Pleural space: No pleural effusion. No pneumothorax. Heart: Unremarkable. No cardiomegaly. IMPRESSION: No acute findings in the chest. Electronically signed by: Angelito Lechuga MD 07/10/25 22:41 PM Medications Administered 1L NSS Zosyn 4.5 g IV Zofran 4 mg IV Morphine 4 mg IV x 2 Acetaminophen 1 g IV Code Status & VTE Plan Code Status Full Supervising Physician Co-Signing Physician Notes Patient seen and examined, chart reviewed, case discussed with NORA March and I agree with the assessment and plan as above. In brief, patient is a 65yo male presenting with acute diverticulitis with contained perforation - no abscess. Patient with colonoscopy 02/12/25 - diverticulosis in the sigmoid and descending colon Had diverticulitis in November which was treated outpatient with Augmentin. This current episode of acute diverticulitis would be the 4th episode in 9 years. Has never had perforation or abscess formation On exam he is resting comfortably Some tenderness in the lower abdomen but no distention. Bowel sounds present +S1/S2, regular Lungs CTA Labs and images reviewed Assessment/Plan -Admit to medical -Maintain NPO status -Zosyn -IVF -Covid-19 infection - patient with adequate oxygenation on room air. Will maintain isolation protocols and treat conservatively at this time -Potassium 3.4, repleted -Remainder as above PG Care Time/CCT Total # of Minutes Spent Total Time Spent with Patient: Total time spent is greater than 50% in coordination of care (as documented) at patient's floor/unit and/or counseling patient: Coding Level of Care Code 63802 INT INP/OBS CARE 75MIN Diagnoses Diverticulitis of intestine with perforation without abscess K57.80 Diverticulitis bleeding: without bleeding Diverticulitis site: unspecified part of intestinal tract COVID-19 U07.1 Hypokalemia E87.6 (1) Diverticulitis of intestine with perforation without abscess Diverticulitis bleeding: without bleeding Diverticulitis site: unspecified part of intestinal tract Qualified Code(s): K57.80 - Diverticulitis of intestine, part unspecified, with perforation and abscess without bleeding
[2025-07-11] MEDS ORDERED: ONDANSETRON INJ 2 MG/ML 2 ML VIAL IV PRN ×2 (00:11→01:28)
[2025-07-11] MEDS ORDERED: MoRPHine SULFATE 2 MG/ML CARP IV PRN (00:11)
[2025-07-11] MEDS ORDERED: MELATONIN 3 MG TAB PO PRN (01:28)
[2025-07-11] MEDS: ALBUT/IPRATROP 3MG/0.5MG NEB 3 ML VIAL NEB SCH (01:50)
[2025-07-11] MEDS: LACTATED RINGER'S 1,000 ML IV SCH (01:59)
[2025-07-11] MEDS: POTASSIUM CHLORIDE / WTR 10 MEQ/100 ML PLCT IV ONE (01:59)
[2025-07-11] MEDS: Patient's HEIGHT &/or WEIGHT Needed STA (03:44)
[2025-07-11] MEDS: PIPERACILLIN/TAZOBACTAM 4.5 GM/100 ML BAG IV SCH (04:39)
[2025-07-11 06:39] LABS: Anion Gap 5.0 (3-11); Blood Urea Nitrogen 17.0 mg/dl (6-23); Calcium 7.9 mg/dl (8.6-10.3); Carbon Dioxide 27.0 mmol/L (21-32); Chloride 106.0 mmol/L (98-107); Creatinine Clr Calc Pharmacy 72.1 ml/min; Glucose 127.0 mg/dl (70-99(Fasting)); Potassium 3.8 mmol/L (3.5-5.1); Sodium 138.0 mmol/L (136-145)
[2025-07-11] MEDS: MoRPHine SULFATE 2 MG/ML CARP IV PRN ×2 (06:41→20:04)
--- NOTE | 2025-07-11 06:45 | Surgery Consultation ---
Date of Consultation July 11, 2025 Assessment & Plan (1) Diverticulitis of intestine with perforation without abscess: Plan Agree with admission to the medical service, will attempt conservative treatment for his diverticulitis with bowel rest and antibiotics, agree with Nino. I described to the patient our typical plan which would include trending his white blood cell count, temps, and serial abdominal exams. If any of these were to worsen, we would consider repeating CAT scan to assess for any identifiable and drainable fluid collection, but if his pain were to get worse he may need operative intervention, which would include a temporary colostomy. Patient expressed understanding. Remainder of his care per the primary medicine team General Surgery will follow closely. Supervising Physician Co-Signing Physician Notes I have seen and examined this patient this am. He feels improved since admission, but abdomen still painful. Continue NPO, recommend moving slow. May have mouth swabs. IV abx and IVF Ambulate May have chemical DVT ppx Surgery will follow History of Present Illness Reason for Consultation: Diverticulitis with microperforation Attending Physician: Linnea Rojas MD History of Present Illness Patient is a 65-year-old male with a past medical history significant for hypertension, hyperlipidemia, prostate cancer status post prostatectomy, arthritis, anxiety, GERD, and a history of TIA, who presents to [facility] emergency department complaining of abdominal pain and low-grade fever x 1 day. Patient states that he developed abdominal pain yesterday afternoon, located in the lower abdomen bilaterally, described as crampy, severe in intensity, with no radiation, and no obvious aggravating or alleviating factors. 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 Of note, the patient has had frequent episodes of diverticulitis, estimating approximately 5 in the last 5 years. Patient states that this feels similar to his previous experiences of diverticulitis, however is more in the central lower abdomen and seems worse at this time. Patient also admits to a low-grade temp of 101.0 with shaking chills. He denies any nausea or vomiting, denies any constipation or diarrhea. States that he was constipated 2 days ago and took MiraLAX and had 4 bowel movements yesterday, described as nonbloody. Patient does state that he had a colonoscopy earlier this year that was reportedly normal. Patient was evaluated in the emergency department and was hemodynamically stable and afebrile. His exam was significant for moderate abdominal tenderness, but without overt peritoneal signs. His labs were relatively unremarkable with a white blood cell count of 10.04. He had a CAT scan of the abdomen pelvis that is concerning for sigmoid diverticulitis with possible microperforation, but no discrete abscess or drainable fluid collection noted. He was admitted to the medical service and general surgery was consulted this morning. Of note, the patient does state that he has had a cough for the last day or 2, nonproductive. He has has similar cough. He states that he is up-to-date on his pneumonia and annual flu vaccine, however has not had a COVID booster. He was tested in the emergency department and was found to be positive for COVID. Allergies Allergy/AdvReac Type Severity Reaction Status Date / Time No Known Allergies Allergy Verified 06/25/25 07:39 Home Medications Medication Instructions Recorded Confirmed Type [id number] 300 mcg-K 60 1 tab PO QAM 06/27/19 07/10/25 History mcg-lycop 600 mcg-lutein 300 mcg tablet (Centrum Silver Men) ascorbic acid (vitamin C) 500 mg 500 mg PO DAILY 09/09/20 07/10/25 History capsule cholecalciferol (vitamin D3) 25 25 mcg PO DAILY 09/09/20 07/10/25 History mcg (1,000 unit) chewable tablet Saccharomyces boulardii 250 mg 250 mg PO DAILY 10/30/23 07/10/25 History capsule (Daily Probiotic (S. boulardii)) docusate sodium 100 mg capsule 100 mg PO HS 02/04/25 07/10/25 History (Colace) irbesartan 75 mg tablet 225 mg PO HS 02/04/25 07/10/25 History rosuvastatin 5 mg tablet 5 mg PO Q OTHER DAY #45 tabs 04/13/25 07/10/25 Rx aspirin 81 mg tablet 81 mg PO DAILY #90 tabs 05/01/25 07/10/25 Rx omeprazole 20 mg capsule,delayed 20 mg PO BID #180 caps 06/29/25 07/10/25 Rx release folic acid 1 mg tablet 1 mg PO QAM #90 tabs 07/06/25 07/10/25 Rx hydrochlorothiazide 25 mg tablet 25 mg PO QAM #90 tabs 07/06/25 07/10/25 Rx zinc gluconate 50 mg tablet 50 mg PO DAILY 07/10/25 07/10/25 History Patient History Medical History Anxiety Diverticulosis History of diverticulitis (11/18/24) seen in ed on 11/18/24- treated with abx Irregular heart rhythm saw dr. geiger last summer- had stress and echo at [facility]- all normal Hypertension Left lower quadrant abdominal pain GERD (gastroesophageal reflux disease) Chronic venous insufficiency wears compression socks daily Bluish skin discoloration Abnormal TSH "good recently" COVID-19 (02/2023) hx-09/2020, moderate symptoms for 10 days, had monoclonial infusion>resolved hx-04/2022, mild-moderate symptoms for 5-6 days, tx paxlovid>resolved hx-02/2023, mild symptoms>resolved Leg cramps "gets occasionally" Body aches after vaccination resolved Back problem lower back arthritis Abdominal hernia Left-sided post surgical intervention/2008/mesh placement; per pt still has left lower quadrant pain occasionally Elevated PSA hx Essential (primary) hypertension Hyperlipidemia Prostate cancer Rising PSA, pretreatment PSA 3.72 Status post ultrasound-guided biopsies April 17, 2018 Adenocarcinoma the prostate Reema 3+3, 1 of 14 cores positive Prostate volume 25 Prostate density 0.148 surgey 2019, no chemo or xrt Surgical History [place] teeth extracted Status post left hip replacement (02/26/23) 02/26/23 History of prostate biopsy malignant History of left inguinal hernia repair (1998) History of esophagogastroduodenoscopy (EGD) Status post prostatectomy (07/24/19) 07/2019 laparoscopic radical retropubic prostatectomy History of foot surgery right big toe joint fusion Hx of colonoscopy Family History Father , age 52 Heart disease Myocardial infarction Hypertension Sister , age 51 of colon cancer Family hx of colon cancer form Colon Cancer 03/03/2015 Liver cancer Ovarian cancer Colorectal cancer Cancer Brother No problems noted. Son Age: 45 No problems noted. Son Age: 42 No problems noted. Daughter Age: 48 No problems noted. Grandmother (Paternal) Family history of diabetes mellitus Mother Heart disease Myocardial infarction Hypertension Grandmother (Maternal) Stroke Other No family history of adverse response to anesthesia Denies family history of Prostate cancer Breast cancer Lung cancer Social History Smoking Status: Current some day smoker Tobacco Type: Cigarettes Age Started Using Tobacco: 15; Age Quit Using Tobacco: 31; packs per day: 0.5; Cigarettes Per Day: 11; Second Hand Exposure: No; Do You Dip or Chew Tobacco: No; Hx Alcohol Use: Yes Alcohol type: beer Alcohol Intake Frequency Comment: about twice a week Hx Substance Use: No Preferred Language: Micronesian Communication Ability: Effective Visual Impairment: Limited Hearing Ability: Normal Oiler Bander Required: No Beliefs That Will Affect Care: None marital status: Current Living Situation: Family current occupational status: employed 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 Other Information That Helps Us Care for You: No Feels Safe at Home: Yes Safety Concerns: Feels Safe At This Time Childhood Exposure to Second-Hand Smoke: No Diet: regular Dental Care, Regularly: Yes Physical Activity Frequency: Daily Seatbelt Use: always Sunscreen Use: Yes Assistive Devices: Glasses Review of Systems Review of Systems: All systems reviewed & are unremarkable except as noted in HPI & below Physical Exam Physical Exam: Gen: Awake and alert, resting comfortably in bed in NAD CV: RRR PULM: non-labored breathing Abd: Abd soft, non-distended, moderate generalized tenderness to palpation, seems worse in the left lower quadrant and suprapubic area, no guarding or rigidity. ext: no edema to bilateral lower ext, SCDs absent, non-tender, feet warm and well perfused Results & Data Vital Signs (Past 12 Hours) Vital Signs Temp Pulse Pulse Resp BP BP Pulse Ox 07/11/25 06:02 104/69 07/11/25 06:00 84 14 97 07/11/25 05:51 80 13 97 07/11/25 05:42 83 17 97 07/11/25 05:30 82 15 98 07/11/25 05:21 84 13 98 07/11/25 05:12 87 12 97 07/11/25 05:00 83 13 97 07/11/25 04:51 82 13 97 07/11/25 04:42 79 12 97 07/11/25 04:30 82 13 98 07/11/25 04:21 87 13 97 07/11/25 04:14 07/11/25 04:12 84 12 98 07/11/25 04:00 81 17 98 07/11/25 03:51 85 13 98 07/11/25 03:43 07/11/25 03:42 86 13 97 07/11/25 03:30 85 13 97 07/11/25 03:21 87 13 97 07/11/25 03:12 100 H 22 97 07/11/25 03:00 85 15 97 07/11/25 03:00 07/11/25 02:51 92 H 14 96 07/11/25 02:42 88 13 97 07/11/25 02:30 90 16 88 L 07/11/25 02:21 96 H 22 92 07/11/25 02:12 99 H 20 93 07/11/25 02:00 87 15 98 07/11/25 01:57 90 21 94 07/11/25 01:56 132/76 07/11/25 01:56 132/76 07/11/25 01:56 132/76 07/11/25 01:56 132/76 07/11/25 01:56 132/76 07/11/25 01:55 90 07/11/25 01:51 97 H 17 91 07/11/25 01:45 88 14 96 07/11/25 01:42 89 14 96 07/11/25 01:30 88 17 95 07/11/25 01:30 125/75 07/11/25 01:30 125/75 07/11/25 01:30 125/75 07/11/25 01:30 125/75 07/11/25 01:30 125/75 07/11/25 01:21 91 H 15 96 07/11/25 01:12 92 H 16 96 07/11/25 01:00 37.5 C 07/11/25 01:00 92 H 17 95 07/11/25 01:00 119/79 07/11/25 01:00 119/79 07/11/25 01:00 119/79 07/11/25 01:00 119/79 07/11/25 01:00 119/79 07/11/25 00:51 114 H 20 93 07/11/25 00:42 92 H 20 97 07/11/25 00:30 96 H 18 96 07/11/25 00:30 142/91 H 07/11/25 00:30 142/91 H 07/11/25 00:30 142/91 H 07/11/25 00:30 142/91 H 07/11/25 00:30 142/91 H 07/11/25 00:30 84 17 136/67 97 07/11/25 00:21 102 H 18 97 07/11/25 00:12 106 H 23 97 07/11/25 00:00 95 H 18 96 07/11/25 00:00 128/77 07/11/25 00:00 128/77 07/11/25 00:00 128/77 07/11/25 00:00 128/77 07/11/25 00:00 128/77 07/10/25 23:51 99 H 18 96 07/10/25 23:00 97 H 19 157/88 H 90 07/10/25 22:21 130 H 22 95 07/10/25 22:18 112 H 20 97 07/10/25 22:00 113 H 20 91 07/10/25 22:00 129/86 07/10/25 22:00 129/86 07/10/25 22:00 129/86 07/10/25 22:00 129/86 07/10/25 21:53 116 H 07/10/25 21:51 92 07/10/25 21:43 118 H 20 92 07/10/25 21:42 115 H 17 92 07/10/25 21:36 38.5 C H 122 H 16 181/114 H 93 07/10/25 21:33 22 95 07/10/25 21:30 181/114 H 07/10/25 21:30 181/114 H 07/10/25 21:30 181/114 H 07/10/25 21:30 181/114 H 07/10/25 21:30 181/114 H Pulse Ox O2 Del Method O2 Del Method O2 Flow Rate 07/11/25 06:02 07/11/25 06:00 07/11/25 05:51 07/11/25 05:42 07/11/25 05:30 07/11/25 05:21 07/11/25 05:12 07/11/25 05:00 07/11/25 04:51 07/11/25 04:42 07/11/25 04:30 07/11/25 04:21 07/11/25 04:14 Nasal Cannula 2 07/11/25 04:12 07/11/25 04:00 07/11/25 03:51 07/11/25 03:43 Nasal Cannula 07/11/25 03:42 07/11/25 03:30 07/11/25 03:21 07/11/25 03:12 07/11/25 03:00 07/11/25 03:00 95 Nasal Cannula 07/11/25 02:51 07/11/25 02:42 Nasal Cannula 3 07/11/25 02:30 Room Air 07/11/25 02:21 07/11/25 02:12 07/11/25 02:00 07/11/25 01:57 07/11/25 01:56 07/11/25 01:56 07/11/25 01:56 07/11/25 01:56 07/11/25 01:56 07/11/25 01:55 07/11/25 01:51 Room Air 07/11/25 01:45 07/11/25 01:42 07/11/25 01:30 07/11/25 01:30 07/11/25 01:30 07/11/25 01:30 07/11/25 01:30 07/11/25 01:30 07/11/25 01:21 07/11/25 01:12 07/11/25 01:00 07/11/25 01:00 07/11/25 01:00 07/11/25 01:00 07/11/25 01:00 07/11/25 01:00 07/11/25 01:00 07/11/25 00:51 07/11/25 00:42 07/11/25 00:30 07/11/25 00:30 07/11/25 00:30 07/11/25 00:30 07/11/25 00:30 07/11/25 00:30 07/11/25 00:30 Room Air 07/11/25 00:21 07/11/25 00:12 07/11/25 00:00 07/11/25 00:00 07/11/25 00:00 07/11/25 00:00 07/11/25 00:00 07/11/25 00:00 07/10/25 23:51 07/10/25 23:00 Room Air 07/10/25 22:21 07/10/25 22:18 07/10/25 22:00 07/10/25 22:00 07/10/25 22:00 07/10/25 22:00 07/10/25 22:00 07/10/25 21:53 07/10/25 21:51 07/10/25 21:43 Nasal Cannula 2 07/10/25 21:42 07/10/25 21:36 Room Air, Nasal Cannula 2 07/10/25 21:33 07/10/25 21:30 07/10/25 21:30 07/10/25 21:30 07/10/25 21:30 07/10/25 21:[address] A/P: IMPRESSION: Acute diverticulitis of the sigmoid colon. There is contained perforation with a few foci of gas in the immediately adjacent mesentery. No fluid collection or subdiaphragmatic air. PG Care Time/CCT Total # of Minutes Spent Total Time Spent with Patient: Total time spent is greater than 50% in coordination of care (as documented) at patient's floor/unit and/or counseling patient: [place] [address] IN/OBS CONSULT LVL 5,80M Patient Type New Medical Decision Making Straight Forward Diagnoses Diverticulitis of intestine with perforation without abscess K57.80 Diverticulitis bleeding: without bleeding Diverticulitis site: unspecified part of intestinal tract (1) Diverticulitis of intestine with perforation without abscess Diverticulitis bleeding: without bleeding Diverticulitis site: unspecified part of intestinal tract Qualified Code(s): K57.80 - Diverticulitis of intestine, part unspecified, with perforation and abscess without bleeding
[2025-07-11] MEDS: ACETAMINOPHEN 1,000 MG/100 ML VIAL IV PRN (08:31)
--- NOTE | 2025-07-11 11:20 | Hospitalist Progress Note ---
Date of Service July 11, 2025 Assessment & Plan (1) Diverticulitis of intestine with perforation without abscess: (2) COVID-19: (3) Hypokalemia: Plan 65-year-old male PMHx HTN, HLD, prostate cancer s/p prostatectomy, arthritis, anxiety, chronic venous insufficiency, GERD, history of TIA, and history of diverticulitis presenting for abdominal pain with fever starting night [employer]IDD[employer]. 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 Overall labs are grossly unremarkable with a normal lactate and procalcitonin. COVID testing was positive and CTAP does reveal evidence of acute sigmoid diverticulitis. Admission for diverticulitis with contained perforation in setting of COVID infection. #Diverticulitis with perforation, no abscess - lactate and procalcitonin WNL - UA negative for infection - CTAP acute sigmoid diverticulitis with contained perforation and few foci of gas in the immediate adjacent mesentery - NPO - patient received IV fluids, consideration of additional IV fluids. - Zofran prn N/V - Acetaminophen prn fever/pain, morphine prn severe pain - Zosyn IV - continue - Gen sx consulted - appreciate input + recs - Per general surgery plans for conservative treatment ongoing. 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 Symptoms improving. Not vaccinated. - CBC WNL, lactate and procalcitonin WNL - CXR no acute findings - IS, O2 prn - DuoNeb lacho #Hypokalemia Asymptomatic currently. Magnesium stable. - Replete as needed based on labs. - Hold HCTZ #HTN- HCTZ, irbesartan - Hold blood pressure medications at time of admission, pending clinical course #GERD- Omeprazole - continue once diet ordered #HLD- Rosuvastatin - continue once diet ordered Dispo: Admit, med/tele VTE prophylaxis: SCDs This document was dictated utilizing [employer]. Please excuse any grammatical errors that may be secondary to use of this software. Admission and Anticipated Discharge Date Admission Date: July 11, 2025 Subjective Patient seen and examined. He mentions he still has ongoing lower abdominal discomfort. He has some head congestion. He denies having any nausea or vomiting. He is passing gas but has not had a bowel movement. Physical Exam Physical Exam: Gen-pt in NAD, awake and alert CVS-+s1,s2, RRR, no murmurs Lungs-CTA b/l GI- Bowel sounds are hypoactive, nondistended, tenderness on minimal palpation to mid and bilateral lower quadrants Ext-no edema, no cyanosis Neuro-grossly intact Results & Data Results & Data Vital Signs (Past 12 Hours) Vital Signs Temp Pulse Pulse Pulse Resp BP BP 07/11/25 09:54 07/11/25 09:50 37.1 C 75 18 120/67 07/11/25 09:13 103 H 20 121/78 07/11/25 08:27 37.8 C H 97 H 18 127/72 07/11/25 07:29 85 07/11/25 07:06 90 20 07/11/25 06:02 104/69 07/11/25 06:00 84 14 07/11/25 05:51 80 13 07/11/25 05:42 83 17 07/11/25 05:30 82 15 07/11/25 05:21 84 13 07/11/25 05:12 87 12 07/11/25 05:00 83 13 07/11/25 04:51 82 13 07/11/25 04:42 79 12 07/11/25 04:30 82 13 07/11/25 04:21 87 13 07/11/25 04:14 07/11/25 04:12 84 12 07/11/25 04:00 81 17 07/11/25 03:51 85 13 07/11/25 03:43 07/11/25 03:42 86 13 07/11/25 03:30 85 13 07/11/25 03:21 87 13 07/11/25 03:12 100 H 22 07/11/25 03:00 85 15 07/11/25 03:00 07/11/25 02:51 92 H 14 07/11/25 02:42 88 13 07/11/25 02:30 90 16 07/11/25 02:21 96 H 22 07/11/25 02:12 99 H 20 07/11/25 02:00 87 15 07/11/25 01:57 90 21 07/11/25 01:56 132/76 07/11/25 01:56 132/76 07/11/25 01:56 132/76 07/11/25 01:56 132/76 07/11/25 01:56 132/76 07/11/25 01:55 90 07/11/25 01:51 97 H 17 07/11/25 01:45 88 14 07/11/25 01:42 89 14 07/11/25 01:30 88 17 07/11/25 01:30 125/75 07/11/25 01:30 125/75 07/11/25 01:30 125/75 07/11/25 01:30 125/75 07/11/25 01:30 125/75 07/11/25 01:21 91 H 15 07/11/25 01:12 92 H 16 07/11/25 01:00 37.5 C 07/11/25 01:00 92 H 17 07/11/25 01:00 119/79 07/11/25 01:00 119/79 07/11/25 01:00 119/79 07/11/25 01:00 119/79 07/11/25 01:00 119/79 07/11/25 00:51 114 H 20 07/11/25 00:42 92 H 20 07/11/25 00:30 96 H 18 07/11/25 00:30 142/91 H 07/11/25 00:30 142/91 H 07/11/25 00:30 142/91 H 07/11/25 00:30 142/91 H 07/11/25 00:30 142/91 H 07/11/25 00:30 84 17 136/67 07/11/25 00:21 102 H 18 07/11/25 00:12 106 H 23 07/11/25 00:00 95 H 18 07/11/25 00:00 128/77 07/11/25 00:00 128/77 07/11/25 00:00 128/77 07/11/25 00:00 128/77 07/11/25 00:00 128/77 07/10/25 23:51 99 H 18 Pulse Ox Pulse Ox O2 Del Method O2 Del Method O2 Flow Rate 07/11/25 09:54 Room Air 07/11/25 09:50 94 Room Air 07/11/25 09:13 96 Room Air 07/11/25 08:27 92 Room Air 07/11/25 07:29 07/11/25 07:06 92 Room Air 07/11/25 06:02 07/11/25 06:00 97 07/11/25 05:51 97 07/11/25 05:42 97 07/11/25 05:30 98 07/11/25 05:21 98 07/11/25 05:12 97 07/11/25 05:00 97 07/11/25 04:51 97 07/11/25 04:42 97 07/11/25 04:30 98 07/11/25 04:21 97 07/11/25 04:14 Nasal Cannula 2 07/11/25 04:12 98 07/11/25 04:00 98 07/11/25 03:51 98 07/11/25 03:43 Nasal Cannula 07/11/25 03:42 97 07/11/25 03:30 97 07/11/25 03:21 97 07/11/25 03:12 97 07/11/25 03:00 97 07/11/25 03:00 95 Nasal Cannula 07/11/25 02:51 96 07/11/25 02:42 97 Nasal Cannula 3 07/11/25 02:30 88 L Room Air 07/11/25 02:21 92 07/11/25 02:12 93 07/11/25 02:00 98 07/11/25 01:57 94 07/11/25 01:56 07/11/25 01:56 07/11/25 01:56 07/11/25 01:56 07/11/25 01:56 07/11/25 01:55 07/11/25 01:51 91 Room Air 07/11/25 01:45 96 07/11/25 01:42 96 07/11/25 01:30 95 07/11/25 01:30 07/11/25 01:30 07/11/25 01:30 07/11/25 01:30 07/11/25 01:30 07/11/25 01:21 96 07/11/25 01:12 96 07/11/25 01:00 07/11/25 01:00 95 07/11/25 01:00 07/11/25 01:00 07/11/25 01:00 07/11/25 01:00 07/11/25 01:00 07/11/25 00:51 93 07/11/25 00:42 97 07/11/25 00:30 96 07/11/25 00:30 07/11/25 00:30 07/11/25 00:30 07/11/25 00:30 07/11/25 00:30 07/11/25 00:30 97 Room Air 07/11/25 00:21 97 07/11/25 00:12 97 07/11/25 00:00 96 07/11/25 00:00 07/11/25 00:00 07/11/25 00:00 07/11/25 00:00 07/11/25 00:00 07/10/25 23:51 96 Laboratory Results 07/10/25 21:50 Aerobic Blood Culture - Pending Blood Anaerobic Blood Culture - Pending 07/10/25 21:50 Aerobic Blood Culture - Pending Blood Anaerobic Blood Culture - Pending 07/11/25 07/10/25 07/10/25 04:31 22:24 21:50 WBC RBC Hgb POC Hgb Hct POC Hct MCV MCH MCHC RDW Std Deviation RDW Coeff of Nithya Plt Count MPV Immature Gran % (Auto) Neut % (Auto) Lymph % (Auto) [place] % (Auto) Eos % (Auto) Baso % (Auto) Neut # (Auto) Lymph # (Auto) [place] # (Auto) Eos # (Auto) Baso # (Auto) Immature Gran # (Auto) POC Sodium Sodium 138 POC Potassium Potassium 3.8 POC Chloride Chloride 106 Carbon Dioxide 27 POC Total CO2 Anion Gap 5 POC Anion Gap POC BUN BUN 17 Creatinine 1.04 POC Creatinine Est Cr Clr Drug Dosing 72.1 eGFR 79.19 BUN/Creatinine Ratio 16.3 Glucose 127 H POC Glucose (other) Lactate Calcium 7.9 L POC Ioniz Calcium Nevin Magnesium Total Bilirubin Direct Bilirubin AST ALT Alkaline Phosphatase Troponin I High Sens Total Protein Albumin Procalcitonin Urine Color Yellow Urine Appearance Clear Urine pH 6.0 Ur Specific Gray 1.043 H Urine Protein Negative Urine Glucose (UA) Negative Urine Ketones Trace H Urine Blood Negative Urine Nitrite Negative Urine Bilirubin Negative Urine Urobilinogen Negative Ur Leukocyte Esterase Negative Urine Comment SARS-CoV-2 (PCR) POSITIVE A Influenza Type A (PCR) Negative Influenza Type B (PCR) Negative RSV (RT-PCR) Negative 07/10/25 07/10/25 21:49 21:35 WBC 10.04 RBC 4.96 Hgb 15.6 POC Hgb 13.6 L Hct 45.8 POC Hct 40 L MCV 92.3 MCH 31.5 MCHC 34.1 RDW Std Deviation 45.2 RDW Coeff of Nithya 13.3 Plt Count 178 MPV 12.1 Immature Gran % (Auto) 0.2 Neut % (Auto) 81.0 Lymph % (Auto) 13.9 [place] % (Auto) 3.8 Eos % (Auto) 0.9 Baso % (Auto) 0.2 Neut # (Auto) 8.13 H Lymph # (Auto) 1.40 [place] # (Auto) 0.38 Eos # (Auto) 0.09 Baso # (Auto) 0.02 Immature Gran # (Auto) 0.02 POC Sodium 142 Sodium 139 POC Potassium 3.4 Potassium 3.4 L POC Chloride 100 L Chloride 103 Carbon Dioxide 30 POC Total CO2 26 Anion Gap 6 POC Anion Gap 20.0 POC BUN 17 BUN 17 Creatinine 1.06 POC Creatinine 1.1 Est Cr Clr Drug Dosing Not Reportable eGFR 77.40 BUN/Creatinine Ratio 16.0 Glucose 120 H POC Glucose (other) 113 H Lactate 1.5 Calcium 9.1 POC Ioniz Calcium Nevin 1.08 L Magnesium 1.9 Total Bilirubin 0.6 Direct Bilirubin 0.1 AST 26 ALT 28 Alkaline Phosphatase 62 Troponin I High Sens 4.9 Total Protein 7.1 Albumin 3.8 Procalcitonin 0.06 Urine Color Urine Appearance Urine pH Ur Specific Gray Urine Protein Urine Glucose (UA) Urine Ketones Urine Blood Urine Nitrite Urine Bilirubin Urine Urobilinogen Ur Leukocyte Esterase Urine Comment SARS-CoV-2 (PCR) Influenza Type A (PCR) Influenza Type B (PCR) RSV (RT-PCR) Diagnostic Findings Abdomen/Pelvis CT 07/10/25 21:43 Exam(s): CT ABDOMEN + PELVIS With Contrast IV Amt: 93 cc [id number] EXAM: CT Abdomen and Pelvis With Intravenous Contrast CLINICAL HISTORY: Reason for exam: abd pain, fever, hx divertic. TECHNIQUE: Axial computed tomography images of the abdomen and pelvis with intravenous contrast. CTDI is 20.07 mGy and DLP is 939.32 mGy-cm. Automated exposure control was utilized for the study. A dose lowering technique was utilized adhering to the principles of ALARA. CONTRAST: Patient received 93 cc [id number] of IV contrast COMPARISON: Comparison CT 11/16/2024 FINDINGS: ABDOMEN: Liver: Unremarkable. Gallbladder and bile ducts: Unremarkable. Pancreas: Unremarkable. Spleen: Unremarkable. Adrenals: Unremarkable. Kidneys and ureters: Unremarkable. No obstructing stones. No hydronephrosis. Stomach and bowel: Acute diverticulitis of the sigmoid colon. There is contained perforation with a few foci of gas in the immediately adjacent mesentery. No fluid collection or subdiaphragmatic air. Focal ileus in the right lower quadrant small bowel. Duodenal diverticulosis. PELVIS: Appendix: No findings to suggest acute appendicitis. Bladder: Unremarkable. Reproductive: Unremarkable as visualized. ABDOMEN and PELVIS: Intraperitoneal space: Unremarkable. No free air. No significant fluid collection. Bones/joints: Left hip arthroplasty. Soft tissues: Unremarkable. Vasculature: Unremarkable. Lymph nodes: Unremarkable. IMPRESSION: Acute diverticulitis of the sigmoid colon. There is contained perforation with a few foci of gas in the immediately adjacent mesentery. No fluid collection or subdiaphragmatic air. Electronically signed by: Angelito Lechuga MD 07/10/25 23:26 PM Chest X-Ray 07/10/25 21:43 Exam(s): XR CXR 1 VIEW EXAM: XR Chest, 1 View CLINICAL HISTORY: Reason for exam: Sepsis. TECHNIQUE: Frontal view of the chest. COMPARISON: Chest x-ray 07/03/2019 FINDINGS: Lungs: Atelectasis at the left lung base. No consolidation. Pleural space: No pleural effusion. No pneumothorax. Heart: Unremarkable. No cardiomegaly. IMPRESSION: No acute findings in the chest. Electronically signed by: Angelito Lechuga MD 07/10/25 22:41 PM PG Care Time/CCT Total # of Minutes Spent Total Time Spent with Patient: Total time spent is greater than 50% in coordination of care (as documented) at patient's floor/unit and/or counseling patient: Coding Level of Care Code 52067 SUB INP/OBS CARE 3/50MIN Diagnoses Diverticulitis of intestine with perforation without abscess K57.80 Diverticulitis bleeding: without bleeding Diverticulitis site: unspecified part of intestinal tract COVID-19 U07.1 Hypokalemia E87.6 (1) Diverticulitis of intestine with perforation without abscess Diverticulitis bleeding: without bleeding Diverticulitis site: unspecified part of intestinal tract Qualified Code(s): K57.80 - Diverticulitis of intestine, part unspecified, with perforation and abscess without bleeding
[2025-07-11 12:12] LABS: Hematocrit (blood only) 32.9 % (42.0-52.0); Hemoglobin 11.2 g/dL (14.0-18.0); Immature Granulocytes # (auto) 0.03 K/uL (0.01-0.20); Immature Granulocytes % (auto) 0.3 %; Mean Corpuscular Hemoglobin 31.9 pg (25.0-34.0); Mean Corpuscular Volume 93.7 fL (80.0-100.0); Platelet Count 141 K/uL (130-400); RDW Standard Deviation 46.7 fL (36.4-46.3); Red Blood Count 3.51 M/uL (4.70-6.10); White Blood Count 9.54 K/ul (4.8-10.8)
[2025-07-11] MEDS ORDERED: ALBUT/IPRATROP 3MG/0.5MG NEB 3 ML VIAL NEB PRN (12:17)
[2025-07-11] MEDS: OPTIRAY 320 100ml IV ONE (15:33)
[2025-07-11] MEDS: D5W AND NSS 1,000 ML IV SCH (15:40)
--- NOTE | 2025-07-11 17:17 | CT Scan Report ---
EXAM: CT Abdomen and Pelvis With Intravenous Contrast INDICATION: Perforated diverticulitis. Worsening abdominal pain. TECHNIQUE: Axial computed tomography images of the abdomen and pelvis with intravenous contrast. Sagittal and coronal reformatted images were created and reviewed. This CT exam was performed using one or more of the following dose reduction techniques: automated exposure control, adjustment of the mA and/or kV according to patient size, and/or use of iterative reconstruction technique. CONTRAST: 94 ml of Optiray 320 was administered intravenously. COMPARISON: 11/16/2024 FINDINGS: Limitations: None. Lung bases: Mild bilateral basilar atelectasis noted. Pleural space: No visualized pleural effusion or pneumothorax. Heart: No abnormality noted. Mediastinum: No abnormality noted. ABDOMEN: Liver: No abnormality noted. Gallbladder and bile ducts: Mildly distended gallbladder. No calcified stones noted. No biliary gas. Pancreas: Homogeneous enhancement. No mass, inflammation or ductal dilation. Spleen: No acute abnormality noted. Adrenals: No acute abnormality noted. Kidneys and ureters: Simple bilateral renal cysts noted. No follow-up necessary. No stones or hydronephrosis. Stomach and bowel: In the same area of colon at the junction of the descending and sigmoid there is moderate acute inflammation about prominent diverticula. Proximal colonic stool moderate in amount. Right colonic fluid. There is reflux of fluid into the small bowel loops. PELVIS: Appendix: No findings to suggest acute appendicitis. Bladder: No filling defects to suggest mass or large stone. No inflammation. Reproductive: No abnormalities noted. ABDOMEN and PELVIS: Intraperitoneal space: Free intraperitoneal air noted. No free fluid. No abscess. Bones/joints: No acute changes. Soft tissues: No acute abnormality noted. Vasculature: No abdominal aortic aneurysm. Lymph nodes: No pathologically enlarged lymph nodes. IMPRESSION: 1. Increased diverticulitis involving the same segment of colon at the junction of the descending and proximal sigmoid with free intraperitoneal air. In the absence of a more recent prior, acute perforation is not excluded. No abscess noted. 2. Ileus. ACT 112: N/A Electronically signed by Marga Mac 07-11-2025 5:16 PM
[2025-07-12 06:18] LABS: Hematocrit (blood only) 36.0 % (42.0-52.0); Hemoglobin 11.9 g/dL (14.0-18.0); Immature Granulocytes # (auto) 0.04 K/uL (0.01-0.20); Immature Granulocytes % (auto) 0.4 %; Mean Corpuscular Hemoglobin 30.8 pg (25.0-34.0); Mean Corpuscular Volume 93.3 fL (80.0-100.0); Platelet Count 153 K/uL (130-400); RDW Standard Deviation 46.4 fL (36.4-46.3); Red Blood Count 3.86 M/uL (4.70-6.10); White Blood Count 8.96 K/ul (4.8-10.8)
[2025-07-12 06:43] LABS: Alanine Aminotransferase 25.0 U/L (7-52); Albumin Globulin Ratio 1.2 (0.9-2); Albumin Level 3.5 gm/dl (3.4-5.0); Alkaline Phosphatase 55.0 U/L (34-104); Anion Gap 6.0 (3-11); Bilirubin,Total 0.8 mg/dl (0.2-1.0); Blood Urea Nitrogen 14.0 mg/dl (6-23); Calcium 8.4 mg/dl (8.6-10.3); Carbon Dioxide 27.0 mmol/L (21-32); Chloride 104.0 mmol/L (98-107); Creatinine Clr Calc Pharmacy 81.6 ml/min; Globulin 2.9 gm/dl (2.5-4.0); Glucose 127.0 mg/dl (70-99(Fasting)); Potassium 4.1 mmol/L (3.5-5.1); Sodium 137.0 mmol/L (136-145); Total Protein 6.4 gm/dl (6.0-8.3)
[2025-07-12] MEDS: LOSARTAN POTASSIUM 50 MG TAB PO SCH (10:05)
--- NOTE | 2025-07-12 12:20 | Surgery Progress Note ---
Date of Service July 12, 2025 Assessment & Plan (1) Diverticulitis of intestine with perforation without abscess: Plan Pt had an episode of pain for which the medical service obtained a CT. There is again free air seen on the imaging. The repeat CT may depict a little more free air pockets than the prior CT vs redistribution of the prior free air or a combination of both. Pt having ice chips and water with meds. Afebrile without leukocytosis. Re-discussed expectations with the patient this am regarding the NPO status. He recalls we did discuss NPO with the ability to have mouth swabs for oral comfort yesterday. Still recommend strict NPO and mouth swabs for oral comfort. Continue IVF and IV abx Provide analgesics and antiemetics as needed This am discussed expected time frame for treatment and typical treatment course with the patient as well. I have explained to the patient that we typically see a noticeable turn around after 3 days (72 hours) of conservative management with IV abx. Recommend he be placed on chemical DVT ppx Ambulate aggressively and SCDs while in bed Surgery will continue to follow Admission and Anticipated Discharge Date Admission Date: July 11, 2025 Subjective Pt seen and examined this am. Had an episode of pain last evening for which a CT A/P was obtained revealing free air. Pts pain was controlled with IV analgesics. He reports he has been having ice chips and water with medications. Physical Exam Constitutional: + obese; not ill appearing, not in distr ess and not diaphoretic Respiratory: normal respiratory effort; no respiratory distress, no labored breathing and does not use accessory muscles Gastrointestinal (Abdomen): Inspection/Auscultation: abdomen normal to inspection and + abdomen distended (mildly) Percussion/Palpation: + abdomen tender (b/l LQ ), + guarding (voluntary) and abdomen soft; abdomen not rigid Results & Data Vital Signs (Past 12 Hours) Vital Signs Temp Pulse Pulse Resp BP Pulse Ox Pulse Ox 07/12/25 12:06 37.2 C 104 H 16 167/96 H 93 07/12/25 08:57 36.6 C 110 H 20 162/97 H 92 07/12/25 05:33 90 07/12/25 04:02 37.2 C 100 H 20 149/88 H 91 07/12/25 03:00 95 O2 Del Method O2 Del Method 07/12/25 12:06 Room Air 07/12/25 08:57 Room Air 07/12/25 05:33 07/12/25 04:02 Room Air 07/12/25 03:00 Room Air PG Care Time/CCT Total # of Minutes Spent Total Time Spent with Patient: Total time spent is greater than 50% in coordination of care (as documented) at patient's floor/unit and/or counseling patient: Coding Level of Care Code 05218 SUB INP/OBS CARE 235MIN Diagnoses Diverticulitis of intestine with perforation without abscess K57.80 Diverticulitis bleeding: without bleeding Diverticulitis site: unspecified part of intestinal tract (1) Diverticulitis of intestine with perforation without abscess Diverticulitis bleeding: without bleeding Diverticulitis site: unspecified part of intestinal tract Qualified Code(s): K57.80 - Diverticulitis of intestine, part unspecified, with perforation and abscess without bleeding
[2025-07-12] MEDS: D5W AND NSS 1,000 ML IV SCH (12:21)
--- NOTE | 2025-07-12 13:57 | Hospitalist Progress Note ---
Date of Service July 12, 2025 Assessment & Plan (1) Diverticulitis of intestine with perforation without abscess: (2) COVID-19: (3) Hypokalemia: Plan 65-year-old male PMHx HTN, HLD, prostate cancer s/p prostatectomy, arthritis, anxiety, chronic venous insufficiency, GERD, history of TIA, and history of diverticulitis presenting for abdominal pain with fever starting night [employer]. 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 Overall labs are grossly unremarkable with a normal lactate and procalcitonin. COVID testing was positive and CTAP does reveal evidence of acute sigmoid diverticulitis. Admission for diverticulitis with contained perforation in setting of COVID infection. #Diverticulitis with perforation, no abscess - lactate and procalcitonin WNL - UA negative for infection - CTAP acute sigmoid diverticulitis with contained perforation and few foci of gas in the immediate adjacent mesentery, Repeat CT of the abdomen and pelvis performed on 1226 indicates increased diverticulitis involving the same segment of colon at the junction of the descending and proximal sigmoid with free intraperitoneal air. In the absence of a more recent prior acute perforation is not excluded, no abscess noted, ileus. - NPO, General surgery is requesting that he to be strictly NPO. - Management of diverticulitis per general surgery. - Continue with IV fluids. - Zofran prn N/V - Acetaminophen prn fever/pain, morphine prn severe pain - Continue IV Zosyn. - Gen sx consulted - appreciate input + recs - Per general surgery plans for conservative treatment ongoing. #COVID COVID diagnosed on admission, did have fever night [employer] O[employer]. Symptoms improving. Not vaccinated. - CBC WNL, lactate and procalcitonin WNL - CXR no acute findings - IS, O2 prn - DuoNeb lacho #Hypokalemia Asymptomatic currently. Magnesium stable. - Replete as needed based on labs. - Hold HCTZ #HTN- HCTZ, irbesartan - Patient placed on as needed hydralazine. #GERD- Omeprazole - continue once diet ordered #HLD- Rosuvastatin - continue once diet ordered Dispo: Admit, med/tele VTE prophylaxis: SCDs Admission and Anticipated Discharge Date Admission Date: July 11, 2025 Subjective Pt seen and examined this am. He is quite happy today as he had a good conversation with the surgeon and has a grasp about his diverticulitis. He denies any nausea or vomiting at this time but has ongoing abdominal pain. No fevers or chills. Physical Exam Physical Exam: Gen-pt in NAD, awake and alert CVS-+s1,s2, RRR, no murmurs Lungs-CTA b/l GI- Bowel sounds are hypoactive, nondistended, tenderness on minimal palpation to mid and bilateral lower quadrants Ext-no edema, no cyanosis Neuro-grossly intact Results & Data Results & Data Vital Signs (Past 12 Hours) Vital Signs Temp Pulse Pulse Resp BP Pulse Ox Pulse Ox 07/12/25 12:06 37.2 C 104 H 16 167/96 H 93 07/12/25 08:57 36.6 C 110 H 20 162/97 H 92 07/12/25 05:33 90 07/12/25 04:02 37.2 C 100 H 20 149/88 H 91 07/12/25 03:00 95 O2 Del Method O2 Del Method 07/12/25 12:06 Room Air 07/12/25 08:57 Room Air 07/12/25 05:33 07/12/25 04:02 Room Air 07/12/25 03:00 Room Air PG Care Time/CCT Total # of Minutes Spent Total Time Spent with Patient: Total time spent is greater than 50% in coordination of care (as documented) at patient's floor/unit and/or counseling patient: Coding Level of Care Code 90139 SUB INP/OBS CARE 3/50MIN Diagnoses Diverticulitis of intestine with perforation without abscess K57.80 Diverticulitis bleeding: without bleeding Diverticulitis site: unspecified part of intestinal tract COVID-19 U07.1 Hypokalemia E87.6 (1) Diverticulitis of intestine with perforation without abscess Diverticulitis bleeding: without bleeding Diverticulitis site: unspecified part of intestinal tract Qualified Code(s): K57.80 - Diverticulitis of intestine, part unspecified, with perforation and abscess without bleeding
--- NOTE | 2025-07-12 20:47 | Electrocardiogram Report ---
Test Reason : Blood Pressure : */* mmHG Vent. Rate : 120 BPM Atrial Rate : 120 BPM P-R Int : 138 ms QRS Dur : 76 ms QT Int : 308 ms P-R-T Axes : 63 65 -20 degrees QTcB Int : 435 ms Sinus tachycardia Left atrial enlargement Abnormal ECG When compared with ECG of 03-Jul-2019 09:01, Vent. rate has increased by 63 bpm T wave inversion now evident in Inferior leads Confirmed by Marla Robertson (Maykel) on 07/12/2025 8:46:41 PM Referred By: REFERRED SELF Confirmed By: Marla Robertson
[2025-07-13] MEDS: FLUTICASONE PROPIONATE NA SPR 16 GM BTL PRN (04:43)
[2025-07-13] MEDS: MoRPHine SULFATE 2 MG/ML CARP IV PRN (04:48)
[2025-07-13 07:08] LABS: Hematocrit (blood only) 35.4 % (42.0-52.0); Hemoglobin 12.5 g/dL (14.0-18.0); Immature Granulocytes # (auto) 0.07 K/uL (0.01-0.20); Immature Granulocytes % (auto) 0.7 %; Mean Corpuscular Hemoglobin 31.6 pg (25.0-34.0); Mean Corpuscular Volume 89.6 fL (80.0-100.0); Platelet Count 169 K/uL (130-400); RDW Standard Deviation 43.0 fL (36.4-46.3); Red Blood Count 3.95 M/uL (4.70-6.10); White Blood Count 9.53 K/ul (4.8-10.8)
[2025-07-13 07:26] LABS: Alanine Aminotransferase 19.0 U/L (7-52); Albumin Globulin Ratio 1.1 (0.9-2); Albumin Level 3.3 gm/dl (3.4-5.0); Alkaline Phosphatase 50.0 U/L (34-104); Anion Gap 8.0 (3-11); Bilirubin,Total 0.7 mg/dl (0.2-1.0); Blood Urea Nitrogen 11.0 mg/dl (6-23); Calcium 8.4 mg/dl (8.6-10.3); Carbon Dioxide 23.0 mmol/L (21-32); Chloride 106.0 mmol/L (98-107); Creatinine Clr Calc Pharmacy 105.7 ml/min; Globulin 3.0 gm/dl (2.5-4.0); Glucose 130.0 mg/dl (70-99(Fasting)); Magnesium 2.1 mg/dl (1.7-2.4); Potassium 3.5 mmol/L (3.5-5.1); Sodium 137.0 mmol/L (136-145); Total Protein 6.3 gm/dl (6.0-8.3)
--- NOTE | 2025-07-13 09:42 | Surgery Progress Note ---
Date of Service July 13, 2025 Assessment & Plan (1) Diverticulitis of intestine with perforation without abscess: Plan: -Patient having multiple BMs and abdominal cramping with episodes, however pain currently controlled well with IV Tylenol. Due to multiple bowel movements, will also increase IV fluids to 125/hr -Discussed with patient today that he can have some sips of water with medication and ice chips however will hold off on advancing diet any further for now. -Continue IV antibiotic coverage, trend temps and WBC - No plans for surgical intervention at this time, will plan to continue to treat conservatively. Medical management per primary team and surgery will continue to follow closely. Admission and Anticipated Discharge Date Admission Date: July 11, 2025 Subjective Patient seen and evaluated this morning, states that he is currently feeling okay and is sitting up in the chair during evaluation. Overnight into this morning patient with multiple episodes of bowel movements and states he is experiencing some lower abdominal cramping with them. States the IV Tylenol is helping well with his pain control Afebrile, WBC this morning 9.5, and is on IV abx coverage Physical Exam Constitutional: WD/WN, vitals as above Respiratory: normal respiratory effort, lungs clear to auscultation Cardiovascular: Rate/Rhythm: regular rate Gastrointestinal (Abdomen): Abdomen soft, nondistended, +TTP in b/l lower quadrants with slight voluntary guarding. No signs of peritonitis Results & Data Vital Signs (Past 12 Hours) Vital Signs Temp Pulse Pulse Resp BP BP Pulse Ox 07/13/25 08:57 116/76 07/13/25 07:37 36.9 C 98 H 18 161/100 H 94 07/13/25 02:05 37.3 C 107 H 18 165/90 H 94 07/12/25 23:52 36.8 C 105 H 18 166/85 H 94 07/12/25 21:42 91 H O2 Del Method 07/13/25 08:57 07/13/25 07:37 Room Air 07/13/25 02:05 Room Air 07/12/25 23:52 Room Air 07/12/25 21:42 PG Care Time/CCT Total # of Minutes Spent Total Time Spent with Patient: Total time spent is greater than 50% in coordination of care (as documented) at patient's floor/unit and/or counseling patient: Coding [place] [address] SUB INP/OBS CARE 08/09MIN Patient Type Established History Problem Focused Exam Problem Focused Medical Decision Making Straight Forward Diagnoses Diverticulitis of intestine with perforation without abscess K57.80 Diverticulitis bleeding: without bleeding Diverticulitis site: unspecified part of intestinal tract (1) Diverticulitis of intestine with perforation without abscess Diverticulitis bleeding: without bleeding Diverticulitis site: unspecified part of intestinal tract Qualified Code(s): K57.80 - Diverticulitis of intestine, part unspecified, with perforation and abscess without bleeding
--- NOTE | 2025-07-13 12:45 | Hospitalist Progress Note ---
Date of Service July 13, 2025 Assessment & Plan (1) Diverticulitis of intestine with perforation without abscess: (2) COVID-19: (3) Hypokalemia: Plan 65-year-old male PMHx HTN, HLD, prostate cancer s/p prostatectomy, arthritis, anxiety, chronic venous insufficiency, GERD, history of TIA, and history of diverticulitis presenting for abdominal pain with fever starting night [employer]OR [employer]. 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 Overall labs are grossly unremarkable with a normal lactate and procalcitonin. COVID testing was positive and CTAP does reveal evidence of acute sigmoid diverticulitis. Admission for diverticulitis with contained perforation in setting of COVID infection. #Diverticulitis with perforation, no abscess - lactate and procalcitonin WNL - UA negative for infection - CTAP acute sigmoid diverticulitis with contained perforation and few foci of gas in the immediate adjacent mesentery, Repeat CT of the abdomen and pelvis performed on 122 indicates increased diverticulitis involving the same segment of colon at the junction of the descending and proximal sigmoid with free intraperitoneal air. In the absence of a more recent prior acute perforation is not excluded, no abscess noted, ileus. - NPO, General surgery recommends that the patient take ice chips And po medications. - Management of diverticulitis per general surgery. - Continue with IV fluids. - check stool culture, C. difficile. - Zofran prn N/V - Acetaminophen prn fever/pain, morphine prn severe pain - Continue IV Zosyn. - Gen sx consulted - appreciate input + recs - Per general surgery plans for conservative treatment ongoing. #COVID COVID diagnosed on admission, did have fever night [employer]OR [employer]. Symptoms improving. Not vaccinated. - CBC WNL, lactate and procalcitonin WNL - CXR no acute findings - IS, O2 prn - DuoNeb lacho #Hypokalemia Asymptomatic currently. Magnesium stable. - Replete as needed based on labs. - Hold HCTZ #HTN- HCTZ, irbesartan - Patient placed on as needed hydralazine. #GERD- Omeprazole - continue once diet ordered #HLD- Rosuvastatin - continue once diet ordered Dispo: Admit, med/tele VTE prophylaxis: SCDs Admission and Anticipated Discharge Date Admission Date: July 11, 2025 Subjective Patient seen and examined. He mentions he has been having diarrhea, intermittent incontinence overnight. He has ongoing abdominal discomfort, also with increased flatus. He denies having any chest pain or trouble breathing. No nausea or vomiting noted. Physical Exam Physical Exam: Gen-pt in NAD, awake and alert CVS-+s1,s2, RRR, no murmurs Lungs-CTA b/l GI- Bowel sounds are hypoactive, nondistended, tenderness on minimal palpation to mid and bilateral lower quadrants Ext-no edema, no cyanosis Neuro-grossly intact Results & Data Results & Data Vital Signs (Past 12 Hours) Vital Signs Temp Pulse Pulse Resp BP BP Pulse Ox 07/13/25 11:36 36.8 C 91 H 18 154/81 H 96 07/13/25 08:57 116/76 07/13/25 07:37 36.9 C 98 H 18 161/100 H 94 07/13/25 07:00 94 H 07/13/25 02:05 37.3 C 107 H 18 165/90 H 94 O2 Del Method 07/13/25 11:36 Room Air 07/13/25 08:57 07/13/25 07:37 Room Air 07/13/25 07:00 07/13/25 02:05 Room Air Laboratory Results 07/10/25 21:50 Aerobic Blood Culture - Preliminary Blood No growth in Aerobic bottle after 48 hours. Anaerobic Blood Culture - Preliminary No growth in Anaerobic bottle after 48 hours. 07/10/25 21:50 Aerobic Blood Culture - Preliminary Blood No growth in Aerobic bottle after 48 hours. Anaerobic Blood Culture - Preliminary No growth in Anaerobic bottle after 48 hours. 07/13/25 06:34 WBC 9.53 RBC 3.95 L Hgb 12.5 L Hct 35.4 L MCV 89.6 MCH 31.6 MCHC 35.3 RDW Std Deviation 43.0 RDW Coeff of Nithya 13.2 Plt Count 169 MPV 11.0 Immature Gran % (Auto) 0.7 Neut % (Auto) 85.8 Lymph % (Auto) 7.8 [place] % (Auto) 4.1 Eos % (Auto) 1.4 Baso % (Auto) 0.2 Neut # (Auto) 8.18 H Lymph # (Auto) 0.74 L [place] # (Auto) 0.39 Eos # (Auto) 0.13 Baso # (Auto) 0.02 Immature Gran # (Auto) 0.07 Sodium 137 Potassium 3.5 Chloride 106 Carbon Dioxide 23 Anion Gap 8 BUN 11 Creatinine 0.71 Est Cr Clr Drug Dosing 105.7 eGFR 101.19 BUN/Creatinine Ratio 15.5 Glucose 130 H Calcium 8.4 L Magnesium 2.1 Total Bilirubin 0.7 AST 15 ALT 19 Alkaline Phosphatase 50 Total Protein 6.3 Albumin 3.3 L Globulin 3.0 Albumin/Globulin Ratio 1.1 PG Care Time/CCT Total # of Minutes Spent Total Time Spent with Patient: Total time spent is greater than 50% in coordination of care (as documented) at patient's floor/unit and/or counseling patient: Coding Level of Care Code 41073 SUB INP/OBS CARE Diagnoses Diverticulitis of intestine with perforation without abscess K57.80 Diverticulitis bleeding: without bleeding Diverticulitis site: unspecified part of intestinal tract COVID-19 U07.1 Hypokalemia E87.6 (1) Diverticulitis of intestine with perforation without abscess Diverticulitis bleeding: without bleeding Diverticulitis site: unspecified part of intestinal tract Qualified Code(s): K57.80 - Diverticulitis of intestine, part unspecified, with perforation and abscess without bleeding
[2025-07-14 05:39] LABS: Cdiff Toxin B Gene (2yr or >) Negative Cdiff Gene (Neg)
[2025-07-14] MEDS: LOSARTAN POTASSIUM 50 MG TAB PO ONE (08:52)
--- NOTE | 2025-07-14 09:19 | Surgery Progress Note ---
Date of Service July 14, 2025 Assessment & Plan (1) Diverticulitis of intestine with perforation without abscess: Plan: Clinically improving Will initiate clear liquid diet today. If no issues in the next 24 hours we can try full liquids tomorrow. Recommend advancing slowly secondary to the microperforation. No urgent indication for surgical intervention at this time. We will continue to follow along closely Admission and Anticipated Discharge Date Admission Date: July 11, 2025 Subjective Patient seen. Feeling considerably better than yesterday. Currently no pain Physical Exam Physical Exam: Alert. No acute distress Abdomen is soft with very mild suprapubic tenderness to deep palpation Results & Data Vital Signs (Past 12 Hours) Vital Signs Temp Pulse Pulse Resp BP Pulse Ox O2 Del Method 07/14/25 07:30 36.7 C 96 H 14 161/95 H 94 Room Air 07/14/25 05:27 84 07/14/25 03:06 36.8 C 96 H 18 162/88 H 95 Room Air 07/13/25 22:36 36.9 C 105 H 18 169/94 H 95 Room Air 07/13/25 22:30 105 H PG Care Time/CCT Total # of Minutes Spent Total Time Spent with Patient: Total time spent is greater than 50% in coordination of care (as documented) at patient's floor/unit and/or counseling patient: Coding Level of Care Code 11744 SUB INP/OBS CARE 08/09MIN Diagnoses Diverticulitis of intestine with perforation without abscess K57.80 Diverticulitis bleeding: without bleeding Diverticulitis site: unspecified part of intestinal tract (1) Diverticulitis of intestine with perforation without abscess Diverticulitis bleeding: without bleeding Diverticulitis site: unspecified part of intestinal tract Qualified Code(s): K57.80 - Diverticulitis of intestine, part unspecified, with perforation and abscess without bleeding
[2025-07-14 09:40] LABS: Adenovirus F 40/41 PCR Not Detected (NotDetected); Campylobacter PCR Not Detected (NotDetected); Enteroaggregative E.coli(EAEC) Not Detected (NotDetected); Shiga-like Toxin E.coli (STEC) Not Detected (NotDetected); Vibrio species PCR Not Detected (NotDetected)
[2025-07-14 10:46] LABS: Hematocrit (blood only) 39.1 % (42.0-52.0); Hemoglobin 13.6 g/dL (14.0-18.0); Immature Granulocytes # (auto) 0.05 K/uL (0.01-0.20); Immature Granulocytes % (auto) 0.6 %; Mean Corpuscular Hemoglobin 31.9 pg (25.0-34.0); Mean Corpuscular Volume 91.6 fL (80.0-100.0); Platelet Count 251 K/uL (130-400); RDW Standard Deviation 45.5 fL (36.4-46.3); Red Blood Count 4.27 M/uL (4.70-6.10); White Blood Count 9.09 K/ul (4.8-10.8)
[2025-07-14 11:11] LABS: Alanine Aminotransferase 27.0 U/L (7-52); Albumin Globulin Ratio 1.1 (0.9-2); Albumin Level 3.7 gm/dl (3.4-5.0); Alkaline Phosphatase 51.0 U/L (34-104); Anion Gap 9.0 (3-11); Bilirubin,Total 0.6 mg/dl (0.2-1.0); Blood Urea Nitrogen 11.0 mg/dl (6-23); Calcium 8.7 mg/dl (8.6-10.3); Carbon Dioxide 24.0 mmol/L (21-32); Chloride 109.0 mmol/L (98-107); Creatinine Clr Calc Pharmacy 90.4 ml/min; Globulin 3.3 gm/dl (2.5-4.0); Glucose 118.0 mg/dl (70-99(Fasting)); Magnesium 2.1 mg/dl (1.7-2.4); Potassium 3.4 mmol/L (3.5-5.1); Sodium 142.0 mmol/L (136-145); Total Protein 7.0 gm/dl (6.0-8.3)
--- NOTE | 2025-07-14 14:31 | Hospitalist Progress Note ---
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 Overall labs are grossly unremarkable with a normal lactate and procalcitonin. COVID testing was positive and CTAP does reveal evidence of acute sigmoid diverticulitis. Admission for diverticulitis with contained perforation in setting of COVID infection. #Diverticulitis with perforation, no abscess - lactate and procalcitonin WNL - UA negative for infection - CTAP acute sigmoid diverticulitis with contained perforation and few foci of gas in the immediate adjacent mesentery, Repeat CT of the abdomen and pelvis performed on 1227 indicates increased diverticulitis involving the same segment of colon at the junction of the descending and proximal sigmoid with free intraperitoneal air. In the absence of a more recent prior acute perforation is not excluded, no abscess noted, ileus. - Diet advanced to clear liquids on 1230, appreciate general surgery input and management. - Will stop IV fluids as able to take in p.o. intake - check stool culture, C. difficile negative. - Zofran prn N/V - Acetaminophen prn fever/pain, morphine prn severe pain - Continue IV Zosyn. - Per general surgery plans for conservative treatment ongoing. 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 Not vaccinated. - CBC WNL, lactate and procalcitonin WNL - CXR no acute findings - IS, O2 prn - DuoNeb lacho #Hypokalemia Asymptomatic currently. Magnesium stable. - Replete as needed based on labs. - Hold HCTZ is receiving IV fluids and ongoing diarrhea #HTN- HCTZ, irbesartan - Patient placed on as needed hydralazine. #GERD- Omeprazole - continue ppi/protonix while in hospital #HLD- Rosuvastatin - continue VTE prophylaxis: lmwh Admission and Anticipated Discharge Date Admission Date: July 11, 2025 Subjective Patient seen and examined. He mentions abdominal pain has improved remarkably. He denies having any chest pain or trouble breathing at this time. No fevers or chills. He continues to have diarrhea. He is happy about being able to eat today. Physical Exam Physical Exam: Gen-pt in NAD, awake and alert CVS-+s1,s2, RRR, no murmurs Lungs-CTA b/l GI- Bowel sounds are normoactive, nondistended, Mild tenderness on palpation. Ext-no edema, no cyanosis Neuro-grossly intact Results & Data Results & Data Vital Signs (Past 12 Hours) Vital Signs Temp Pulse Pulse Resp BP BP Pulse Ox 07/14/25 11:51 36.9 C 92 H 14 160/96 H 95 07/14/25 07:30 36.7 C 96 H 14 161/95 H 94 07/14/25 05:27 84 07/14/25 03:06 36.8 C 96 H 18 162/88 H 95 O2 Del Method 07/14/25 11:51 Room Air 07/14/25 07:30 Room Air 07/14/25 05:27 07/14/25 03:06 Room Air Laboratory Results 07/14/25 07/14/25 10:00 04:45 WBC 9.09 RBC 4.27 L Hgb 13.6 L Hct 39.1 L MCV 91.6 MCH 31.9 MCHC 34.8 RDW Std Deviation 45.5 RDW Coeff of Nithya 13.3 Plt Count 251 MPV 10.9 Immature Gran % (Auto) 0.6 Neut % (Auto) 78.5 Lymph % (Auto) 12.2 [place] % (Auto) 6.4 Eos % (Auto) 2.1 Baso % (Auto) 0.2 Neut # (Auto) 7.14 H Lymph # (Auto) 1.11 L [place] # (Auto) 0.58 Eos # (Auto) 0.19 Baso # (Auto) 0.02 Immature Gran # (Auto) 0.05 Sodium 142 Potassium 3.4 L Chloride 109 H Carbon Dioxide 24 Anion Gap 9 BUN 11 Creatinine 0.83 Est Cr Clr Drug Dosing 90.4 eGFR 96.53 BUN/Creatinine Ratio 13.3 Glucose 118 H Calcium 8.7 Magnesium 2.1 Total Bilirubin 0.6 AST 21 ALT 27 Alkaline Phosphatase 51 Total Protein 7.0 Albumin 3.7 Globulin 3.3 Albumin/Globulin Ratio 1.1 Stl C. cayetanensis PCR Not Detected Stool Rotavirus A PCR Not Detected Stl Adenov F 40/41 PCR Not Detected Stool Astrovirus (PCR) Not Detected Stool Campylobacter PCR Not Detected Stl C. diff Tox B Gene Negative Cdiff Gene Stl C. diff [id number] NEGATIVE Stool Cryptosporidium PCR Not Detected Stl E.coli Shiga Tox PCR Not Detected Stl Enterotoxigenic E PCR Not Detected Stool EPEC (PCR) Not Detected Stool EAEC (PCR) Not Detected Stl E. histolytica PCR Not Detected Stool Giardia [place] PCR Not Detected Stool Salmonella PCR Not Detected Stool Sapovirus (PCR) Not Detected Stl P. shigelloides PCR Not Detected Stl Shigella/EIEC PCR Not Detected St Y.enterocolitica PCR Not Detected Stool Vibrio (PCR) Not Detected Stl Vibrio cholerae PCR Not Detected Stl Norovirus GI/GII PCR Not Detected PG Care Time/CCT Total # of Minutes Spent Total Time Spent with Patient: Total time spent is greater than 50% in coordination of care (as documented) at patient's floor/unit and/or counseling patient: Coding Level of Care Code 43004 SUB INP/OBS CARE 50MIN Diagnoses Diverticulitis of intestine with perforation without abscess K57.80 Diverticulitis bleeding: without bleeding Diverticulitis site: unspecified part of intestinal tract COVID-19 U07.1 Hypokalemia E87.6 (1) Diverticulitis of intestine with perforation without abscess Diverticulitis bleeding: without bleeding Diverticulitis site: unspecified part of intestinal tract Qualified Code(s): K57.80 - Diverticulitis of intestine, part unspecified, with perforation and abscess without bleeding
[2025-07-14] MEDS: POTASSIUM CHLORIDE CRTAB 20 MEQ TABCR PO STA (14:57)
[2025-07-14] MEDS: ENOXAPARIN INJ 40 MG/0.4 ML SYR SQ SCH (15:00)
[2025-07-14 19:26] VITALS: RESP 18
[2025-07-15 08:05] VITALS: O2SAT 94
[2025-07-15] MEDS: LOSARTAN POTASSIUM 50 MG TAB PO SCH (08:05)
[2025-07-15] MEDS: ACETAMINOPHEN 325 MG TAB PO PRN (08:06)
[2025-07-15 09:05] LABS: Hematocrit (blood only) 36.0 % (42.0-52.0); Hemoglobin 12.2 g/dL (14.0-18.0); Immature Granulocytes # (auto) 0.03 K/uL (0.01-0.20); Immature Granulocytes % (auto) 0.5 %; Mean Corpuscular Hemoglobin 30.6 pg (25.0-34.0); Mean Corpuscular Volume 90.2 fL (80.0-100.0); Platelet Count 204 K/uL (130-400); RDW Standard Deviation 43.9 fL (36.4-46.3); Red Blood Count 3.99 M/uL (4.70-6.10); White Blood Count 6.60 K/ul (4.8-10.8)
[2025-07-15 09:29] LABS: Alanine Aminotransferase 29.0 U/L (7-52); Albumin Globulin Ratio 1.1 (0.9-2); Albumin Level 3.3 gm/dl (3.4-5.0); Alkaline Phosphatase 46.0 U/L (34-104); Anion Gap 10.0 (3-11); Bilirubin,Total 0.8 mg/dl (0.2-1.0); Blood Urea Nitrogen 9.0 mg/dl (6-23); Calcium 8.6 mg/dl (8.6-10.3); Carbon Dioxide 22.0 mmol/L (21-32); Chloride 108.0 mmol/L (98-107); Creatinine Clr Calc Pharmacy 98.7 ml/min; Globulin 3.0 gm/dl (2.5-4.0); Glucose 92.0 mg/dl (70-99(Fasting)); Magnesium 1.9 mg/dl (1.7-2.4); Potassium 3.5 mmol/L (3.5-5.1); Sodium 140.0 mmol/L (136-145); Total Protein 6.3 gm/dl (6.0-8.3)
--- NOTE | 2025-07-15 10:09 | Surgery Progress Note ---
Date of Service July 15, 2025 Assessment & Plan (1) Diverticulitis of intestine with perforation without abscess: Plan: Doing extremely well at this point. Will advance him to a low fiber diet. Okay from my standpoint for discharge either later today or tomorrow. Recommend discharge home on oral antibiotics and a low fiber diet. Admission and Anticipated Discharge Date Admission Date: July 11, 2025 Subjective Patient seen. Feeling much better. No pain at all today. Tolerating liquids Physical Exam Constitutional: WD/WN, vitals as above no acute distress and not ill appearing Eyes: PERRL, conjunctivae normal, anicteric sclerae EOM intact bilaterally ENMT: external ear and nose normal, oropharynx normal Ears: no hearing impairment Neck: trachea midline, no thyromegaly Respiratory: normal respiratory effort; no respiratory distress and does not use accessory muscles Cardiovascular: Rate/Rhythm: regular rate and regular rhythm Gastrointestinal (Abdomen): normal bowel sounds, soft, nontender, no hepatosplenomegaly Skin: no rashes, warm and dry Psychiatric: Orientation: alert, oriented x 3 and cooperative Results & Data Vital Signs (Past 12 Hours) Vital Signs Temp Pulse Pulse Resp BP BP Pulse Ox 07/15/25 08:34 89 07/15/25 08:04 37.0 C 111 H 18 165/88 H 94 07/15/25 04:13 37.0 C 96 H 18 159/84 H 93 07/15/25 00:06 178/95 H 07/14/25 23:28 167/92 H 07/14/25 22:41 36.8 C 106 H 18 193/104 H 94 O2 Del Method 07/15/25 08:34 07/15/25 08:04 Room Air 07/15/25 04:13 Room Air 07/15/25 00:06 07/14/25 23:28 07/14/25 22:41 Room Air PG Care Time/CCT Total # of Minutes Spent Total Time Spent with Patient: Total time spent is greater than 50% in coordination of care (as documented) at patient's floor/unit and/or counseling patient: Coding Level of Care Code 60106 SUB INP/OBS CARE 08/09MIN Diagnoses Diverticulitis of intestine with perforation without abscess K57.80 Diverticulitis bleeding: without bleeding Diverticulitis site: unspecified part of intestinal tract (1) Diverticulitis of intestine with perforation without abscess Diverticulitis bleeding: without bleeding Diverticulitis site: unspecified part of intestinal tract Qualified Code(s): K57.80 - Diverticulitis of intestine, part unspecified, with perforation and abscess without bleeding
[2025-07-15] MEDS: hydroCHLOROthiazide 25 MG TAB PO SCH (11:19)
[2025-07-15] MEDS: OPTIRAY 320 125ml IV ONE (17:36)
--- NOTE | 2025-07-15 18:56 | Hospitalist Progress Note ---
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 Overall labs are grossly unremarkable with a normal lactate and procalcitonin. COVID testing was positive and CTAP does reveal evidence of acute sigmoid diverticulitis. Admission for diverticulitis with contained perforation in setting of COVID infection. #Diverticulitis with perforation, no abscess - lactate and procalcitonin WNL - UA negative for infection - CTAP acute sigmoid diverticulitis with contained perforation and few foci of gas in the immediate adjacent mesentery, Repeat CT of the abdomen and pelvis performed on 1227 indicates increased diverticulitis involving the same segment of colon at the junction of the descending and proximal sigmoid with free intraperitoneal air. In the absence of a more recent prior acute perforation is not excluded, no abscess noted, ileus. - Diet advanced to clear liquids on 1230, appreciate general surgery input and management. - Will stop IV fluids as able to take in p.o. intake - check stool culture, C. difficile negative. - Continue IV Zosyn while here in the hospital, transition to oral ciprofloxacin and Flagyl to finish course of treatment. - Per general surgery plans for conservative treatment ongoing. #Tachycardia -Patient was sinus tachycardia, possibly due to acute hospitalization and illness. -Due to significant debility will check CTA of the chest to rule out pulmonary embolism. 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 Not vaccinated. - CBC WNL, lactate and procalcitonin WNL #Hypokalemia Asymptomatic currently. Magnesium stable. - Improved. #HTN- HCTZ, irbesartan Patient will be discharged on home medications. #GERD- Omeprazole - continue ppi/protonix while in hospital #HLD- Rosuvastatin - continue VTE prophylaxis: lmwh Admission and Anticipated Discharge Date Admission Date: July 11, 2025 Subjective Patient seen and examined. He feels much better today. He denies having any abdominal pain, no nausea or vomiting. Physical Exam Physical Exam: Gen-pt in NAD, awake and alert CVS-+s1,s2, RRR, no murmurs Lungs-CTA b/l GI- Bowel sounds are normoactive, nondistended, Nontender. Ext-no edema, no cyanosis Neuro-grossly intact Results & Data Results & Data Vital Signs (Past 12 Hours) Vital Signs Temp Pulse Pulse Resp BP Pulse Ox O2 Del Method 07/15/25 15:27 112 H 07/15/25 15:18 36.9 C 92 H 18 165/82 H 94 Room Air 07/15/25 11:10 36.9 C 111 H 18 151/91 H 94 Room Air 07/15/25 08:34 89 07/15/25 08:04 37.0 C 111 H 18 165/88 H 94 Room Air Laboratory Results 07/15/25 08:13 WBC 6.60 RBC 3.99 L Hgb 12.2 L Hct 36.0 L MCV 90.2 MCH 30.6 MCHC 33.9 RDW Std Deviation 43.9 RDW Coeff of Nithya 13.2 Plt Count 204 MPV 10.6 Immature Gran % (Auto) 0.5 Neut % (Auto) 73.9 Lymph % (Auto) 15.2 [place] % (Auto) 8.3 Eos % (Auto) 1.8 Baso % (Auto) 0.3 Neut # (Auto) 4.88 Lymph # (Auto) 1.00 L [place] # (Auto) 0.55 Eos # (Auto) 0.12 Baso # (Auto) 0.02 Immature Gran # (Auto) 0.03 Sodium 140 Potassium 3.5 Chloride 108 H Carbon Dioxide 22 Anion Gap 10 BUN 9 Creatinine 0.76 Est Cr Clr Drug Dosing 98.7 eGFR 99.13 BUN/Creatinine Ratio 11.8 Glucose 92 Calcium 8.6 Magnesium 1.9 Total Bilirubin 0.8 AST 24 ALT 29 Alkaline Phosphatase 46 Total Protein 6.3 Albumin 3.3 L Globulin 3.0 Albumin/Globulin Ratio 1.1 PG Care Time/CCT Total # of Minutes Spent Total Time Spent with Patient: Total time spent is greater than 50% in coordination of care (as documented) at patient's floor/unit and/or counseling patient: Coding Level of Care Code 88894 SUB INP/OBS CARE 35MIN Diagnoses Diverticulitis of intestine with perforation without abscess K57.80 Diverticulitis bleeding: without bleeding Diverticulitis site: unspecified part of intestinal tract COVID-19 U07.1 Hypokalemia E87.6 (1) Diverticulitis of intestine with perforation without abscess Diverticulitis bleeding: without bleeding Diverticulitis site: unspecified part of intestinal tract Qualified Code(s): K57.80 - Diverticulitis of intestine, part unspecified, with perforation and abscess without bleeding
--- NOTE | 2025-07-15 19:04 | Discharge Summary ---
Discharge Summary Date of Service July 15, 2025 Principal Dx & Hospital Course #1 = Principal Diagnosis (1) Diverticulitis of intestine with perforation without abscess: (2) COVID-19: (3) Hypokalemia: Plan 65-year-old male PMHx HTN, HLD, prostate cancer s/p prostatectomy, arthritis, anxiety, chronic venous insufficiency, GERD, history of TIA, and history of diverticulitis presenting for abdominal pain with fever starting night [employer]. 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 Overall labs are grossly unremarkable with a normal lactate and procalcitonin. COVID testing was positive and CTAP does reveal evidence of acute sigmoid diverticulitis. Admission for diverticulitis with contained perforation in setting of COVID infection. #Diverticulitis with perforation, no abscess - lactate and procalcitonin WNL - UA negative for infection - CTAP acute sigmoid diverticulitis with contained perforation and few foci of gas in the immediate adjacent mesentery, Repeat CT of the abdomen and pelvis performed on 1227 indicates increased diverticulitis involving the same segment of colon at the junction of the descending and proximal sigmoid with free intraperitoneal air. In the absence of a more recent prior acute perforation is not excluded, no abscess noted, ileus. - Diet advanced to clear liquids on 1230, appreciate general surgery input and management. - Will stop IV fluids as able to take in p.o. intake - check stool culture, C. difficile negative. - Continue IV Zosyn while here in the hospital, transition to oral ciproflox acin and Flagyl to finish course of treatment. - Per general surgery plans for conservative treatment ongoing. #Tachycardia -Patient was sinus tachycardia, possibly due to acute hospitalization and illness. -Due to significant debility will check CTA of the chest to rule out pulmonary embolism. #COVID COVID diagnosed on admission, did have fever night [employer] CLAIM[employer]. Symptoms improving. Not vaccinated. - CBC WNL, lactate and procalcitonin WNL #Hypokalemia Asymptomatic currently. Magnesium stable. - Improved. #HTN- HCTZ, irbesartan Patient will be discharged on home medications. #GERD- Omeprazole - continue ppi/protonix while in hospital #HLD- Rosuvastatin - continue VTE prophylaxis: lmwh Admission HPI Per Admitting Provider 65-year-old male PMHx HTN, HLD, prostate cancer s/p prostatectomy, arthritis, anxiety, chronic venous insufficiency, GERD, history of TIA, and history of diverticulitis presenting for abdominal pain with fever starting night [employer] CLAIM[employer]. Pt reports that the day [employer] CLAIM[employer]ENT he had not had a BM which was abnormal for him because he has BMs every day usually. That evening he took a dose of MiraLAX. The morning of arrival he reports having a BM kathe "size of your L arm", followed by smaller, soft, "fluffy" BMs throughout the day. There was no blood noted. He was at basketball practice from [id number] and notes that he again started to have the sensation that he had to have another BM but it was a more intense feeling. This feeling continued into around [id number] the day of arrival and then turned into abdominal pain, located at his umbilicus and just below it as well. He reports that normally, if he has abdominal pain, he is able to "kneed out" the pain, but this was not the case the day of arrival. The pain is a sharp, constant pain that comes and goes in waves. He has not had any N/V. No fever or chills. Admits to exposure to multiple sick children between [employer] and basketball, so he did experience URI symptoms (rhinorrhea) which started around 5 days [employer] CLAIM[employer]ENT but have improved. He has not had a COVID vaccine. Has had COVID 5 times, per patient. He denies additional symptoms to include CP, SOB, palpations, numbness/tingling, F/C, LUTS, weakness, syncope, or falls. Has a history of diverticulitis, but states that this feels "different." ED evaluation revealed CBC without leukocytosis or leukopenia, stable H&H and platelets; CMP potassium 3.4, glucose 120; magnesium 1.9; lactate 1.5, procalcitonin 0.06; UA without infection; COVID/flu/RSV positive for COVID; CXR no acute findings; CTAP acute diverticulitis sigmoid colon, contained perforation with few foci of gas in the immediate adjacent mesentery, no fluid collection or subcu diaphragmatic air.; Provided with 1L NSS, Zosyn 4.5 g IV, Zofran 4 mg IV, morphine 4 mg IV x 2, acetaminophen 1 g IV in ED. Please see Dr. Morris's attestation for adjustments/additions to treatment plan. Discharge Plan Discharge Items Patient Disposition: Home - Self-Care Reason For Visit: DIVERTICULITIS W/ CONTAINED PERF,COVID,HYPOKALEMIA Discharge Diagnosis: Diverticulitis with contained perforation COVID-19 Condition on Discharge: Fair Activity: Per Instructions section Lifting: Gradually increase as tolerated Bathing: No limitations Exercise/Sports: Gradually increase as tolerated Driving/Machine Use: Resume 1 day after discharge Weightbearing: Full weightbearing Non-emergency contact: Primary Care Provider and Producer Arborist Manager Call non-emergency contact if: you have any medication questions, your symptoms worsen, your pain is not controlled and you have a fever Follow-up/Referrals: Marlon Hassan MD [Primary Care Provider] - Diet: Heart Healthy and Low Fiber Addtl Attending Provider Instructions: You came to the hospital and were found to have diverticulitis along with COVID- 19. You were treated with antibiotics and will be discharged home on oral antibiotics to finish course of treatment. It is advised that you follow-up with your primary care physician along with gastroenterology after you leave the hospital. You will benefit from undergoing a colonoscopy in 6 to 8 weeks in follow-up. Pending Studies at Discharge: No Stand-Alone Forms: [employer], Smoking Cessation Medications and DC Order Prescriptions: New fluticasone propionate 50 mcg/actuation [place],Suspension 2 spray NA BID PRN (Reason: nasal congestion) Qty: 16 0RF ciprofloxacin HCl [Cipro] 500 mg tablet 500 mg PO Q12H 7 Days Qty: 14 0RF metronidazole 500 mg tablet 500 mg PO Q8H 7 Days Qty: 21 0RF Continued rosuvastatin 5 mg tablet 5 mg PO Q OTHER DAY Qty: 45 1RF aspirin 81 mg tablet 81 mg PO DAILY Qty: 90 3RF omeprazole 20 mg capsule,delayed release(DR/EC) 20 mg PO BID Qty: 180 1RF folic acid 1 mg tablet 1 mg PO QAM Qty: 90 3RF hydrochlorothiazide 25 mg tablet 25 mg PO QAM Qty: 90 3RF ascorbic acid (vitamin C) 500 mg capsule 500 mg PO DAILY cholecalciferol (vitamin D3) 25 mcg (1,000 unit) tablet,chewable 25 mcg PO DAILY Saccharomyces boulardii [Daily Probiotic (S. boulardii)] 250 mg capsule 250 mg PO DAILY Centrum Silver Men 300-600-300 mcg Tablet 1 tab PO QAM zinc gluconate [Zinc-50] 50 mg Tablet 50 mg PO DAILY irbesartan 75 mg tablet 225 mg PO HS Discontinued docusate sodium [Colace] 100 mg Capsule 100 mg PO HS Krames/Other Patient Handouts: Diverticulitis Dc Admission Data Admit Date/Time: 07/11/25 00:11 Attending Provider: Linnea Rojas Admit Provider: Jimena Morris Primary Care Provider: Marlon Hassan V. Other Providers: Florencio Serrano; Jimena Morris Hospital Stay Data Consultations 07/10/25 23:39 ED Decision to Admit Stat 07/11/25 01:28 Consult General Surgery Routine Diagnostic Imagining Performed 07/10/25 21:43 CT Abd and Pelvis [CT abd pelvis IV con only] Stat 07/11/25 15:15 CT abd pelvis IV con only Stat 07/15/25 15:50 CT angio chest PE protocol Stat Pending Results Patient Have Any Pending Studies at Discharge: No Discharge Instructions Given to Patient (Per Discharging Provider) You came to the hospital and were found to have diverticulitis along with COVID- 19. You were treated with antibiotics and will be discharged home on oral antibiotics to finish course of treatment. It is advised that you follow-up with your primary care physician along with gastroenterology after you leave the hospital. You will benefit from undergoing a colonoscopy in 6 to 8 weeks in follow-up. Total Time Total Time Spent Total Time Spent (In Minutes): Greater than 35 minutes was spent in the discharge coordination and care of this patient. Coding Level of Care Code 01976 INP/OBS DISCH >30 MIN Diagnoses Diverticulitis of intestine with perforation without abscess K57.80 Diverticulitis bleeding: without bleeding Diverticulitis site: unspecified part of intestinal tract COVID-19 U07.1 Hypokalemia E87.6
--- NOTE | 2025-07-15 19:13 | CT Scan Report ---
CT PULMONARY ANGIOGRAM. HISTORY: Chest pain TECHNIQUE: Enhanced CT examination of the chest was performed using pulmonary embolism protocol. IV CONTRAST: 100 mL of OMNIPAQUE 300 COMPARISON: None. FINDINGS: PULMONARY ARTERIES: No filling defect identified to the segmental level. LYMPH NODES: No lymphadenopathy by size criteria. CARDIOVASCULAR: Mildly enlarged cardiac size. No right heart strain. No pericardial effusion. No aortic aneurysm. There are coronary artery calcifications in keeping with coronary artery disease. MEDIASTINUM: No solid or cystic mediastinal masses. The esophagus is normally decompressed. LUNGS/PLEURA: The central tracheo-bronchial tree is patent. No mass or consolidation identified. Small pleural fluids. Bibasilar atelectasis. No pneumothorax. No suspicious pulmonary nodules. Mild pulmonary vascular congestion. BONES: No suspicious osseous lesions. VISUALIZED LOWER NECK: Unremarkable. VISUALIZED UPPER ABDOMEN: Trace ascites IMPRESSION: No pulmonary embolism identified to the segmental level. Congestive changes of the cardiovascular system with cardiomegaly, small pleural fluids and mild pulmonary vascular congestion. Electronically signed by Jimmie Camejo 07-15-2025 7:13 PM
[2025-07-15 19:27] VITALS: TEMP 98.1
[2025-07-15 19:28] VITALS: BP 178/95; PULSE 103
== END 2025-07-15 20:03 | disposition home or self-care (01) | DRG 391 ==
LOC: ED 21:25 → EDINP 07-11 00:11 → SUATTDRO 07-11 00:11 → 2N 07-11 01:28